=== PATIENT | female | born 1945 | race Caucasian/White ===

== ENCOUNTER → 2021-04-15 09:52 | Outpatient (CLI) | payer MEDICARE, OTHER, SELFPAY | PROVIDERS: PCP Nurse Practitioner Family; Visit Provider Nurse Practitioner | DX: U07.1 COVID-19 (principal) | CPT/HCPCS: C9803; U0003; U0005 ==

== ENCOUNTER 2021-04-24 11:40 | Emergency (ER) | payer MEDICARE, OTHER, SELFPAY ==
[2021-04-24 11:41] VITALS: BP 130/70; PULSE 97; RESP 16; TEMP 36.9; O2SAT 96; BMI 12.1
--- NOTE | 2021-04-24 12:06 | HMH.EDGENADL ---
ED Disposition Clinical Impression: COVID-19, Gastroenteritis Disposition: Home, Self-Care Condition on Discharge: Good Instructions: DI for Viral Gastroenteritis -- Adult Prescriptions: Ondansetron [Zofran 4mg ODT] 4 mg PO BIDP PRN #10 tab PRN Reason: Nausea Prescription Printed Referrals: Provider,Referral, [Primary Care Provider] - Jayro Dominguez MD [Staff Physician] - - Critical Care Critical Care Time: No Attestation: On 04/24/21, the high probability of a clinically significant, sudden or life threatening deterioration of the following system(s) required my full and direct attention, intervention and personal management. The time I documented below is in addition to time spent performing reported procedures but includes the following listed in this critical care notation. Medical Decision Making - Medical Records Medical records reviewed: Yes: I reviewed the patient's medical records. - Agus Inquiry Pt receiving controlled substance: No Vital Signs: 04/24/21 11:41 Temperature 98.5 F Temperature Source Oral Pulse Rate [Right Radial] 97 H Respiratory Rate 16 Blood Pressure [Right Arm] 130/70 Blood Pressure Mean [Right Arm] 90 Blood Pressure Source [Right Arm] Automatic Cuff Blood Pressure Position [Right Arm] Sitting 02 Sat by Pulse Oximetry 96 Oxygen Delivery Method Room Air - Lab Data Lab Results 04/24/21 12:30: WBC 5.3, RBC 4.86, Hgb 15.5, Hct 46.0, MCV 94.6, MCH 31.8 H, MCHC 33.6, RDW 14.7, Plt Count 223, MPV 9.1, Neut % (Auto) 88.2 H, Lymph % (Auto) 8.0 L, [place] % (Auto) 2.6, Eos % (Auto) 0.2, Baso % (Auto) 1.1, Neut # (Auto) 4.7, Lymph # (Auto) 0.4 L, [place] # (Auto) 0.1, Eos # (Auto) 0.0, Baso # (Auto) 0.1 04/24/21 12:30: Sodium 135 L, Potassium 4.2, Chloride 101, Carbon Dioxide 27, Anion Gap 11.2, BUN 14, Creatinine 0.70, Estimated Creat Clear 25, Estimated GFR 81, Est GFR ( Amer) 98, Glucose 104 H, Calcium 9.3, Total Bilirubin 0.5, AST 93 H, ALT 32, Alkaline Phosphatase 87, Total Protein 7.2, Albumin 4.4, Globulin 2.8, Albumin/Globulin Ratio 1.6, Lipase 135 Result diagrams: 04/24/21 12:30 04/24/21 12:30 Orders (Tests/Meds): ED MEDICATIONS Generic Name Dose Route Start Last Admin Trade Name Freq PRN Reason Stop Dose Admin Sodium Chloride 8 ml 04/24/21 12:05 Sodium Chloride 0.9% 10ml Vial IV 05/24/21 12:04 NEEDED PRN dilute pepcid Discontinued Medications Generic Name Dose Route Start Last Admin Trade Name Freq PRN Reason Stop Dose Admin Dexamethasone Sodium Phosphate 10 mg 04/24/21 12:05 04/24/21 13:23 Dexamethasone 4mg/Ml 5ml Mdv IV 04/24/21 12:06 10 mg ONCE ONE Administration Famotidine 20 mg 04/24/21 12:05 04/24/21 13:23 Famotidine 20mg/2ml Vial IV 04/24/21 12:06 20 mg ONCE ONE Administration Sodium Chloride 1,000 mls @ 999 mls/hr 04/24/21 12:15 04/24/21 13:22 Sod Chlor 0.9% 1000ml Bag IV 04/24/21 13:15 999 mls/hr .Q1H1M NATA Administration Ondansetron HCl 4 mg 04/24/21 12:05 04/24/21 13:23 Ondansetron 4mg/2ml Vial IV 04/24/21 12:06 4 mg ONCE ONE Administration ORDERS Category Date Time Status Complete Blood Count Auto Diff Stat Lab 04/24/21 12:30 Results - Reevaluation(s) Time: 13:37 Reevaluation #1: On reevaluation, the patient is feeling better. Repeat abdominal examination is benign. No evidence of acute abdomen. Patient is also not having any respiratory distress. She has no evidence hypoxia. We did ambulate the patient without any evidence of desaturation. Patient is to continue her quarantine per CDC guidelines. Needs follow-up with PCP in 48 hours. Given strict return precautions. Verbalized understanding. Medical Decision Narrative: 75-year-old female presented to the emergency department some nausea and vomiting. Patient symptoms are consistent with gastritis likely from her recent Covid diagnosis. At this time she is not requiring any supplemental oxygen.
[2021-04-24 12:41] LABS: Basophils # 0.1 K/mm3 (0-0.2); Basophils % 1.1 % (0.1-2.0); Eosinophils % 0.2 % (0.1-12.0); Hemoglobin 15.5 g/dL (12.2-16.2); Lymphocytes # 0.4 K/mm3 (0.7-4.5); Mean Corpuscular HGB Conc 33.6 g/dL (31.8-35.4); Mean Corpuscular Hemoglobin 31.8 pg (27.0-31.2); Mean Corpuscular Volume 94.6 fl (81-99); Mean Platelet Volume 9.1 fl (7.4-10.4); Monocytes # 0.1 K/mm3 (0.1-1.0); Monocytes % 2.6 % (1.7-9.3); Neutrophils # 4.7 K/mm3 (1.8-7.8); Neutrophils % 88.2 % (37.0-80.0); Platelet Count 223 K/mm3 (142-424); Red Blood Count 4.86 M/mm3 (4.20-5.40); Red Cell Distribution Width 14.7 % (11.5-17.5); White Blood Count 5.3 K/mm3 (4.8-10.8)
[2021-04-24 12:58] LABS: Alanine Aminotransferase 32 U/L (12-78); Albumin Level 4.4 g/dl (3.5-5.0); Albumin/Globulin Ratio 1.6 (1.1-1.8); Alkaline Phosphatase 87 U/L (38-126); Anion Gap 11.2 mEq/L (5-15); Aspartate Amino Transferase 93 U/L (14-36); Bilirubin,Total 0.5 mg/dl (0.2-1.3); Blood Urea Nitrogen 14 mg/dl (7-17); Calcium 9.3 mg/dl (8.4-10.2); Carbon Dioxide 27 mmol/L (22.0-30.0); Chloride 101 mmol/L (98-107); Creatinine Clearance Estimated 25 mL/min (50-200); Estimated Glomerular Filt Rate 81 ml/min (>60); GFR (African American) 98 ML/MIN (>60); Globulin 2.8 g/dL (1.3-3.2); Glucose 104 mg/dl (74-100); Lipase 135 U/L (23-300); Potassium 4.2 mmoL/L (3.5-5.1); Sodium 135 mmol/L (136-145); Total Protein,Serum 7.2 g/dl (6.3-8.2)
[2021-04-24 13:11] LABS: MANUAL DIFFERENTIAL MANUAL DIFFERENTIAL (MANUAL DIFF)
[2021-04-24 13:43] LABS: Lymphocytes % 8 % (10-50); Monocytes % 1 % (2-9); Neutrophils % 91 % (42-76); Platelet Estimate Normal; RBC Morphology Normal; Total Cells Counted 100
[2021-04-24 13:55] VITALS: BP 139/54; PULSE 82; RESP 18; TEMP 36.9; O2SAT 96
== END 2021-04-24 13:55 | disposition home or self-care (01) ==
PROVIDERS: Emergency Provider Emergency Medicine
DX: U07.1 COVID-19 (principal); K52.9 Noninfective gastroenteritis and colitis, unspecified
CPT/HCPCS: 80053; 83690; 85007; 85025; 96365; 96375; 99282; J2405

== ENCOUNTER 2021-04-30 05:56 | Inpatient (IN) | payer MEDICARE, OTHER, SELFPAY ==
[2021-04-30] VITALS (33 sets, daily range): BP systolic 111–166; BP diastolic 49–89; PULSE 74–115; RESP 16–31; TEMP 35.8–43; O2SAT 92–100; BMI 15.6; BMI 16.7
--- NOTE | 2021-04-30 06:03 | ECG_ITS ---
APPROVED REPORT Exam: Resting ECG HR:92 bpm ECG Measurements Heart Rate 92 AXES UT 134 P 78 QRSd 76 QRS -57 QT 364 T 84 QTc 450 Conclusion Normal sinus rhythm Biatrial enlargement Left axis deviation Abnormal ECG Electronically signed by : Rodriguez Rosario MD 05/02/2021 08:47:36
--- NOTE | 2021-04-30 06:16 | XR_ITS ---
PROCEDURE: XR CHEST 2V CLINICAL HISTORY: SOA COMPARISON: CR CXR CHEST(2 VIEWS-NOT PORTABLE) from 05/08/[address] ABDOMEN PELVIS W CON from 04/30/2021 FINDINGS: The cardiomediastinal silhouette and pulmonary vascularity are within normal limits. There is bilateral pneumonia in the right upper lobe, right lower lobe, and left lower lobe. There is biapical pleural thickening. There is a nodular density in the left apex at 10 mm. This could be due to scarring. Follow-up may confirm stability. Lucency in the left apex which could be related underlying cavitation or emphysematous change. No acute bony abnormalities. IMPRESSION: Bilateral pneumonia. Biapical scarring with nodular opacity in the left apex which may also be due to scarring versus pulmonary nodule. Lucencies are noted in the left apex and may be due to emphysematous changes/blebs versus cavitation. Follow-up suggested.. Dictated by: Krystian Spencer MD 04/30/2021 08:54 Krystian Spencer MD in [place] 04/30/2021 08:54
--- NOTE | 2021-04-30 06:16 | CT_ITS ---
PROCEDURE: CT ABDOMEN PELVIS W CON CLINICAL INDICATION: Abd pain Lower abdominal pain with nausea COMPARISON: No exams were available for comparison TECHNIQUE: IV Contrast: 75ML Isovue 370 Oral Contrast 10ml Gastroview Axial images obtained with sagittal and coronal reformats. All CT scans at the facility use one or more dose reduction, viz: automated exposure control, ma/kV adjustment per patient size (including targeted exams where dose is matched to indication, i.e. head), or iterative reconstruction technique. FINDINGS: LOWER THORAX: There are COPD changes of the lung with prominent interstitial thickening along with some consolidation in the lower lobes consistent with bilateral lower lobe pneumonia. Covid19 pneumonia is a consideration. No effusions. ABDOMEN & PELVIS: There is decreased density of the right lobe of the liver compared to the left side. This is fairly homogeneous. The spleen, adrenal glands, pancreas, and kidneys have an unremarkable appearance other than a 1.6 cm right renal cyst. No intestinal obstruction apparent. There are some scattered foci free air noted in the anterior aspect of the abdomen. There are scattered foci hyperdensity within the bowel and could represent residual contrast from a recent barium study or ingestion of bismuth containing medication. The appendix is not clearly delineated. 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 Superior mesenteric artery is nonvisualized. There is a prominent inferior mesenteric artery with prominent collateral vessels an arc of riolan. IMPRESSION: 1. Pneumoperitoneum. Ruptured viscus considered. 2. Bilateral lower lobe pneumonia consistent with Covid19 pneumonia. 3. Well-demarcated decreased attenuation involving the right lobe of the liver. Infarction is a consideration. Unusual pattern fatty infiltration would be included in the differential diagnosis. 4. 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 There is also occlusion of the superior mesenteric artery which is not identified. There is prominent collateral vessels suggesting at the occlusion may be chronic with enlarged arc of [place] 5. There is thickening of the ascending colon. Colonic mass is a consideration versus underlying inflammatory change. 6. Dr. Gloria the ER was notified of the above findings by telephone 04/30/2021 at 9:40 a.m. Dictated by: Krystian Spencer MD 04/30/2021 10:11 Krystian Spencer MD in [place] 04/30/2021 10:11
--- NOTE | 2021-04-30 06:40 | HMH.EDNVD ---
ED Disposition Condition on Discharge: Good - Critical Care Critical Care Time: No <Jayro Dominguez - Last Filed: 04/30/21 08:16> Condition on Discharge: Serious - Critical Care Critical Care Time: No <Tomas Barrera - Last Filed: 04/30/21 16:30> Clinical Impression: Pneumoperitoneum, Hepatic infarction, Occlusion of celiac artery, Occlusion of superior mesenteric artery, Pneumonia due to COVID-19 virus Disposition: Admitted As Inpatient Attestation: On 04/30/21, the high probability of a clinically significant, sudden or life threatening deterioration of the following system(s) required my full and direct attention, intervention and personal management. The time I documented below is in addition to time spent performing reported procedures but includes the following listed in this critical care notation. Medical Decision Making - Medical Records Medical records reviewed: Yes: I reviewed the patient's medical records. - Agus Inquiry Pt receiving controlled substance: No - Lab Data Lab results reviewed: Yes: I reviewed the patient's lab results. Result diagrams: 04/30/21 06:48 04/30/21 06:48 <Jayro Dominguez - Last Filed: 04/30/21 08:16> - Lab Data Result diagrams: 04/30/21 06:48 04/30/21 06:48 - Radiology Data #1 Image(s): Chest Image Reviewed: Yes I reviewed the patient's radiology image, Yes I have reviewed radiologist's interpretation - CT Data CT Scan: Abdomen, Pelvis Time Received: 09:[address] Reviewed: Yes: I discussed the CT results w/the radiologist, I have viewed the radiologist's interpretation - Physician Consults Physician Consulted: Gary Time: 10:14 Reason -: Surgical Eval/Care Comment/Response: Recommends transfer patient to higher level of care given multiple findings and comorbidities Additional Consult: [facility], and surgeon eap consultant Time: 10:40 Reason -: Transfer to another facilty, Surgical Eval/Care Comment/Response: is on lockdown diversion. Surgical transfers must be approved by the chief service dispatcher. The surgeon will call the CARD FIXER and call us back. Additional Consult: [facility] Time: 12:17 Reason -: Transfer to another facilty Comment/Response: Reports that chief service dispatcher states that beds are maxed out and they are unable to accept the patient. - Reevaluation(s) Time: 09:45 <Tomas Barrera - Last Filed: 04/30/21 16:30> Vital Signs: 04/30/21 05:57 04/30/21 06:09 04/30/21 06:31 Temperature 97.7 F Temperature Source Oral Pulse Rate 87 88 Pulse Rate [Right Radial] 94 H Respiratory Rate 20 Blood Pressure Blood Pressure [Right Arm] 111/60 Blood Pressure Mean Blood Pressure Mean [Right Arm] 77 Blood Pressure Source [Right Arm] Automatic Cuff Blood Pressure Position [Right Arm] Sitting 02 Sat by Pulse Oximetry 95 96 100 Oxygen Delivery Method Room Air 04/30/21 07:28 04/30/21 08:25 04/30/21 09:01 Temperature Temperature Source Pulse Rate 84 99 H 99 H Pulse Rate [Right Radial] Respiratory Rate Blood Pressure 116/49 L 123/62 136/64 Blood Pressure [Right Arm] Blood Pressure Mean 63 82 90 Blood Pressure Mean [Right Arm] Blood Pressure Source [Right Arm] Blood Pressure Position [Right Arm] 02 Sat by Pulse Oximetry 94 L 95 96 Oxygen Delivery Method 04/30/21 10:00 04/30/21 10:31 04/30/21 11:30 Temperature Temperature Source Pulse Rate 79 74 77 Pulse Rate [Right Radial] Respiratory Rate Blood Pressure 124/56 L 133/60 138/58 L Blood Pressure [Right Arm] Blood Pressure Mean 78 84 74 Blood Pressure Mean [Right Arm] Blood Pressure Source [Right Arm] Blood Pressure Position [Right Arm] 02 Sat by Pulse Oximetry 95 94 L 98 Oxygen Delivery Method 04/30/21 12:01 04/30/21 12:30 04/30/21 13:00 Temperature Temperature Source Pulse Rate 82 94 H 89 Pulse Rate [Right Radial] Respiratory Rate Blood Pressure 150/
--- NOTE | 2021-04-30 06:54 | PC.NURSE ---
Pt finished oral contrast
[2021-04-30 07:08] LABS: Basophils % 0.3 % (0.1-2.0); Eosinophils % 0.3 % (0.1-12.0); Hematocrit 39.7 % (37.0-47.0); Hemoglobin 13.3 g/dL (12.2-16.2); Lymphocytes # 0.5 K/mm3 (0.7-4.5); Lymphocytes % 5.9 % (10-50); Mean Corpuscular HGB Conc 33.4 g/dL (31.8-35.4); Mean Corpuscular Hemoglobin 31.4 pg (27.0-31.2); Mean Corpuscular Volume 93.9 fl (81-99); Mean Platelet Volume 8.7 fl (7.4-10.4); Monocytes # 0.1 K/mm3 (0.1-1.0); Monocytes % 1.7 % (1.7-9.3); Neutrophils # 7.3 K/mm3 (1.8-7.8); Neutrophils % 91.8 % (37.0-80.0); Platelet Count 246 K/mm3 (142-424); Red Blood Count 4.23 M/mm3 (4.20-5.40); Red Cell Distribution Width 14.6 % (11.5-17.5); White Blood Count 7.9 K/mm3 (4.8-10.8)
[2021-04-30 07:12] LABS: MANUAL DIFFERENTIAL MANUAL DIFFERENTIAL (MANUAL DIFF)
[2021-04-30 07:18] LABS: Alanine Aminotransferase 31 U/L (12-78); Alkaline Phosphatase 61 U/L (38-126); Aspartate Amino Transferase 97 U/L (14-36); Bilirubin,Direct 1.3 mg/dl (0.0-0.4); Bilirubin,Indirect 0.6 mg/dL (0.0-0.9); Bilirubin,Total 1.9 mg/dl (0.2-1.3); Bilirubin,Unconjugated 0.6 mg/dL (0.0-1.1); Blood Urea Nitrogen 26 mg/dl (7-17); Calcium 8.6 mg/dl (8.4-10.2); Carbon Dioxide 24 mmol/L (22.0-30.0); Chloride 103 mmol/L (98-107); Creatinine Clearance Estimated 33 mL/min (50-200); Estimated Glomerular Filt Rate 97 ml/min (>60); GFR (African American) 117 ML/MIN (>60); Glucose 89 mg/dl (74-100); Lipase 44 U/L (23-300); Sodium 135 mmol/L (136-145); Total Protein,Serum 7.5 g/dl (6.3-8.2)
[2021-04-30 07:21] LABS: Anion Gap 13.8 mEq/L (5-15); Potassium 5.8 mmoL/L (3.5-5.1)
[2021-04-30 07:23] LABS: C-Reactive Protein 162.6 mg/L (0-4)
[2021-04-30 07:32] LABS: Troponin I 0.02 ng/ml (0.00-0.034)
[2021-04-30 07:47] LABS: Lymphocytes % 4 % (10-50); Monocytes % 4 % (2-9); Neutrophils % 92 % (42-76); Platelet Estimate Normal; RBC Morphology Normal; Total Cells Counted 100
[2021-04-30 08:03] LABS: Erythrocyte Sedimentation Rate 26 mm/hr (0-30)
--- NOTE | 2021-04-30 08:09 | PC.NURSE ---
Pt is currently in bathroom trying to give urine sample
--- NOTE | 2021-04-30 08:10 | PC.NURSE ---
Pt walking to the bathroom at this time.
[2021-04-30 08:18] LABS: Microscopic, Urine URINE MICROSCOPIC (MICROSCOPIC)
[2021-04-30 08:21] LABS: Appearance,Urine CLEAR (Clear); Bilirubin,Urine 1+ (Negative); Blood, Urine Negative (Negative); Color,Urine YELLOW (Yellow); Glucose,Urine (UA) Negative (Negative); Ketones,Urine 1+ (Negative); Leukocyte Esterase,Urine TRACE (Negative); Nitrate,Urine Negative (Negative); PH,Urine 5.5 (5.0-8.5); Protein,Urine TRACE (Negative); Specific Gravity, Urine >= 1.030 (1.005-1.030); Urobilinogen,Urine 0.2 EU/dl (0.2)
--- NOTE | 2021-04-30 08:21 | PC.NURSE ---
Stool for diarrhea panel being sent to lab at this time.
[2021-04-30 08:24] LABS: Adenovirus F 40/41, stool Not Detected (NotDetected); Astrovirus Not Detected (NotDetected); Campylobacter Not Detected (NotDetected); Clostridium Difficile A/B, PCR Not Detected (NotDetected); Cryptosporidium Not Detected (NotDetected); Cyclospora Cayetanesis Not Detected (NotDetected); Entamoeba histolytica Not Detected (NotDetected); Enteroaggregative E coli Not Detected (NotDetected); Enteropathogenic E coli Not Detected (NotDetected); Enterotoxigenic E coli Not Detected (NotDetected); Giardia lamblia Not Detected (NotDetected); Norovirus Not Detected (NotDetected); Plesimonas Shigalloides, PCR Not Detected (NotDetected); Rotavirus A Not Detected (NotDetected); Salmonella, PCR Not Detected (NotDetected); Sapovirus Not Detected (NotDetected); Shiga-like toxin E coli Not Detected (NotDetected); Shigella Enterovasive E coli Not Detected (NotDetected); Vibrio Cholerae Not Detected (NotDetected); Vibrio, PCR Not Detected (NotDetected); Yersinia Entercolitica, PCR Not Detected (NotDetected)
--- NOTE | 2021-04-30 08:27 | PC.NURSE ---
Pt to Rad
--- NOTE | 2021-04-30 08:28 | PC.NURSE ---
pt going to ct
[2021-04-30 08:37] LABS: RBC,Urine Occasional #/hpf (0-3)
--- NOTE | 2021-04-30 09:42 | PC.NURSE ---
speaking with Dr Spencer
--- NOTE | 2021-04-30 09:46 | PC.NURSE ---
Attempting to get ahold of Dr Vega at this time, as he is the surgeon real estate professional
[2021-04-30 09:49] LABS: Occult Blood,Stool Positive (Negative)
--- NOTE | 2021-04-30 09:50 | PC.NURSE ---
speaking with pharmacy
--- NOTE | 2021-04-30 10:12 | PC.NURSE ---
speaking with Dr Vega at this time. This nurse asked pt if she needed any pain medication for her abd pain. Pt advises that she does not at this time. States that pain has subsided and is only present when she attempts to cough.
[2021-04-30 10:16] LABS: Troponin I < 0.01 ng/ml (0.00-0.034)
--- NOTE | 2021-04-30 10:26 | PC.NURSE ---
Calling [facility]
--- NOTE | 2021-04-30 10:34 | PC.NURSE ---
Pt is currently in bathroom
--- NOTE | 2021-04-30 10:48 | PC.NURSE ---
spoke with [facility] and was advised that they are on Lockdown Divert and couldn't accept surgical pt without speaking with their Soft Boarder and Surgeon. Awaiting a return call at this time.
[2021-04-30 11:32] LABS: Lactic Acid 2.6 mmol/L (0.7-2.1)
--- NOTE | 2021-04-30 12:22 | PC.NURSE ---
returned call and denied transfer. Called [facility] and they advised that they are at capacity and unable to accept transfer at this time. Calling [facility] at this time.
--- NOTE | 2021-04-30 12:26 | PC.NURSE ---
SPOKE WITH [facility] THEY HAVE NO ICU BED AVAILABLE BUT THEY ARE PAGING DR MORA AND WILL CALL BACK
--- NOTE | 2021-04-30 12:29 | PC.NURSE ---
DR RYAN SPEAKING WITH DR MORA
--- NOTE | 2021-04-30 12:34 | PC.NURSE ---
SPOKE WITH TRANSFER CENTER IN [place] THEY ARE ONLY TAKING TAKING CARDIAC ,TRAUMA AND AN
--- NOTE | 2021-04-30 12:42 | PC.NURSE ---
SPOKE WITH [facility] IN REGARDING A TRANSFER THEY ARE SUPPOSE TO CALL US BACK , BUT WAS NOT SURE IF THEY WOULD ACCEPT DUE TO IT NOT BEING A TRAUMA
--- NOTE | 2021-04-30 12:54 | PC.NURSE ---
Spoke with Transfer [facility] at [place] and they advised he would accept the patient if there was an immediate ICU bed available. At this time there was no available ICU bed. Advised they could page the hospitalist to see if they would also accept and they could look at the bed situation again in a couple of hours. Dr. Barrera advised to continue to proceed.
--- NOTE | 2021-04-30 13:12 | PC.NURSE ---
DR POWELL PAGED
--- NOTE | 2021-04-30 13:35 | PC.NURSE ---
speaking with Dr. Vega
--- NOTE | 2021-04-30 13:36 | PC.NURSE ---
Called and spoke with pt's brother and advised him that pt was facing critical situation and she was requesting that he come to the ER so she could speak with him face to face. He advised that he would let his boss know and would be on the way.
--- NOTE | 2021-04-30 14:29 | PC.NURSE ---
Brother arrived at bedside. MD going in to speak with them at this time
--- NOTE | 2021-04-30 14:38 | PC.NURSE ---
DR POWELL AND DR RYAN AT BEDSIDE
--- NOTE | 2021-04-30 14:59 | PC.NURSE ---
Dr. Vega had lengthy discussion with pt and her brother about surgery, complications and potential outcomes. Pt and brother agreeable to be transported to [facility] at this time. Julia calling [facility] transfer center to update them and see what POC will be.
--- NOTE | 2021-04-30 15:04 | PC.NURSE ---
SPOKE WITH [facility] AGAIN IN REGARDING THAT PT DOES WANT TO BE TRANSFERRED , WAITING MEDICAL OFFICE SCHEDULER BACK
--- NOTE | 2021-04-30 15:15 | PC.NURSE ---
Notified Dr. Gary anthony pt has decided at this time she does not want to go to [facility]. Multiple family members at bedside.
[2021-04-30 15:18] LABS: Reflex Lactic Add Lactic Reflex
--- NOTE | 2021-04-30 15:23 | PC.NURSE ---
DR ZULETA PAGED FOR ADMISSION
--- NOTE | 2021-04-30 15:30 | PC.NURSE ---
I went in and spoke with patient and family at length regarding code status and all the options that were available to them at this time. Explained everything in detail and went over the paperwork. I advised them I would give them some time to discuss options and would come back and discuss their decision. Family asked if manager of corporate communications could come to bedside to make the brother POA. Advised them at this time that would be ok. Left sheet at bedside and told them I would be back.
--- NOTE | 2021-04-30 15:32 | CT_ITS ---
PROCEDURE INFORMATION: Exam: CT Abdomen And Pelvis Without Contrast Exam date and time: 04/30/2021 3:32 PM Age: 75 years old Clinical indication: Abdominal pain; Generalized; Patient HX: PT had CT abd/pelvis earlier today with findings see prior report. ; Additional info: Abd pain TECHNIQUE: Imaging protocol: Computed tomography of the abdomen and pelvis without contrast. Radiation optimization: All CT scans at this facility use at least one of these dose optimization techniques: automated exposure control; mA and/or kV adjustment per patient size (includes targeted exams where dose is matched to clinical indication); or iterative reconstruction. COMPARISON: CT ABDOMEN PELVIS W CON 04/30/2021 8:32 AM FINDINGS: Lungs: Coarse interstitial lung markings and bibasilar airspace opacities are noted and have worsened. The right lung base airspace process has worsened significantly. Pleural spaces: Minor right-sided pleural fluid. Liver: Normal. No mass. Gallbladder and bile ducts: Normal. No calcified stones. No ductal dilation. Pancreas: Normal. No ductal dilation. Spleen: Normal. No splenomegaly. Adrenal glands: Normal. No mass. Kidneys and ureters: Right-sided simple renal cysts measuring up to 2.1 cm. Stomach and bowel: Unremarkable. No obstruction. No mucosal thickening. Appendix: No evidence of appendicitis. Intraperitoneal space: Large volume of pneumoperitoneum. Vasculature: Mild atherosclerotic changes are seen within the abdominal aorta and branch vasculature without evidence of aneurysm. Lymph nodes: Unremarkable. No enlarged lymph nodes. Urinary bladder: Contrast within the urinary bladder, renal collecting systems and ureters. Reproductive: Unremarkable as visualized. Bones/joints: Unremarkable. No acute fracture. Soft tissues: Unremarkable. IMPRESSION: 1. Worsening pneumoperitoneum consistent with hollow viscus perforation. Sided perforation is not determined with confidence. 2. New pelvic free fluid. 3. Worsening bibasilar pneumonia. 4. Simple right renal cysts. No follow-up imaging is recommended. COMMENTS: Consistent with the [employer]'s Incidental Findings Committee white paper (J Am Claritza Radiol 2018): Any incidental renal lesion less than 1 cm or classified as too small to characterize, or any incidental cystic renal lesion characterized as simple-appearing, is likely benign. No follow-up imaging is recommended for these lesions per consensus recommendations based on imaging criteria.
--- NOTE | 2021-04-30 15:40 | HMH.GSCON ---
*Admission Date: 04/30/21 *Reason for consult:: Free air *History of present illness: This is a 75-year-old female with a recent diagnosis of Covid pneumonia who presents the emergency department with increasing nausea, vomiting, and diarrhea. She had a previous emergency department visit with similar symptoms on April 24. Evaluation included a CT scan which showed a small amount of pneumoperitoneum of undetermined etiology. No changes consistent with perforated duodenal ulcer or diverticulitis were noted. Bilateral pneumonia also confirmed radiographically. Unfortunately a well-demarcated decreased attenuation involving the right lobe of the liver was also noted and this was felt to be possibly consistent with infarction. 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 Some thickening of the ascending colon consistent with inflammatory change versus mass was also noted. The surgical service was consulted secondary to note of a small amount of pneumoperitoneum. Due to the patient's significant comorbid conditions including Covid pneumonia, possible hepatic infarction, celiac artery occlusion (albeit with reconstitution), and superior mesenteric artery occlusion...recommendations for immediate transfer to tertiary care center were made. Multiple attempts at transfer were efforted by the emergency department physician. Please see timeline below. Ultimately, an accepting physician at the [facility] was found; however, the patient now refuses transfer. NOTE: Repeat CT scan shows significant increase in degree of pneumoperitoneum. Forwarded from emergency department evaluation: Nausea/Vomiting/Diarrhea HPI - General Mode of Arrival: Ambulatory Source of Information: Patient, Medical Record Limitations: No Limitations Description of Symptoms (Recalled from ER Triage Doc. by RN): Pt reports continued vomiting and diarrhea from her previous visit on 04/24. She says she now has some midline abdominal pain. She also reports SOA. - History of Present Illness MD complaint: nausea, vomiting, diarrhea, abdominal pain Onset (ago): day(s) Associated Abdominal Pain: Yes Location of pain: diffuse Severity: moderate Associated symptoms: denies other symptoms The following is the timeline with regard to attempts to transfer the patient to an appropriate tertiary care center: - Physician Consults Physician Consulted: Gary Time: 10:14 Reason -: Surgical Eval/Care Comment/Response: Recommends transfer patient to higher level of care given multiple findings and comorbidities Additional Consult: [facility] transfer center, and surgeon production checker Time: 10:40 Reason -: Transfer to another facilty, Surgical Eval/Care Comment/Response: is on lockdown diversion. Surgical transfers must be approved by the protection chief industrial plant. The surgeon will call the SLOT FLOORMAN and call us back. Additional Consult: [facility] transfer center Time: 12:17 Reason -: Transfer to another facilty Comment/Response: Reports that protection chief industrial plant states that beds are maxed out and they are unable to accept the patient. 12:25 PM: Both [facility] and [facility] are at capacity and unable to accept the transfer. [facility] to take her information, surgeon to call back. [facility] is not even able to take information for a waiting list. 12:30 PM: Spoke with Dr. Edmond, surgeon at [facility]. He is took information and will accept the patient from his standpoint, but this is contingent upon vascular surgery exceptions, hospitalist acceptance, ICU bed availability. Awaiting further calls. 12:35 PM: [facility] unable to
--- NOTE | 2021-04-30 15:51 | PC.NURSE ---
Pt to CT
--- NOTE | 2021-04-30 16:07 | PC.NURSE ---
Notified house of admission
--- NOTE | 2021-04-30 16:09 | PC.NURSE ---
Went back to see if family had made a decision about code status and they have decided at this time she will be a full code.
[2021-04-30 16:13] LABS: Influenza A, PCR Not Detected (NotDetected); Influenza B, PCR Not Detected (NotDetected)
--- NOTE | 2021-04-30 16:17 | PC.NURSE ---
Dr. Vega at bedside
[2021-04-30 16:21] LABS: Lactic Acid Follow Up (RFLX 1) 1.2 mmol/L (0.7-2.1)
--- NOTE | 2021-04-30 16:26 | PC.NURSE ---
Dr. Vega came out of pt room and advised pt would be going to surgery immediately and that he needed the surgery team. Notified House that I needed the surgery team ALLEGRA. Spoke with KASSI Bee and asked her if pt could see her son who is intubated on the floor prior to surgery. Rohit and Gabriel came down and took pt and her brother to the floor to see her son prior to going to surgery. Pt's sister in law Fiorella Mauricio is now the designated health care surrogate per the patient's request. I went to pre-op waiting area and had her sign the surgery consent and the anesthesia consent. Rohit and Gabriel had pt in pre-op area at this time getting pt prepped for surgery. Pr-op checklist completed. SEEMA Treviño started 2nd IV in the right forearm with 20g. Fluids started. Pre-op antibiotics and pepcid brought to pre-op by Shahana at this time. Allowed family at bedside to be with pt prior to going back to OR. Crescencio and Angelika Silva RN arrived at bedside and spoke with pt and family. Pt taken to OR and I escorted family back out to surgery waiting room and advised them someone could come and update them.
--- NOTE | 2021-04-30 16:26 | PC.NURSE ---
OR TEAM AND ANESTHESIA PAGED AT THIS TIME
--- NOTE | 2021-04-30 16:27 | PC.NURSE ---
Addendum entered by Jena Ku RN 04/30/21 16:29: JERROD INFORMED OR TEAM OF EMERGENT CASE WELL. Original Note: RECEIVED CALL BACK FROM JERROD IN ANESTHESIA, STATED HE WAS IN THE OR IN THE MIDDLE OF A CASE AT THIS TIME. INFORMED HIM OF PATIENT INFO, AND HE STATED HE WOULD CALL DR POWELL.
[2021-04-30 16:40] LABS: Coronavirus 19, PCR Detected (NotDetected)
[2021-04-30 17:09] LABS: Troponin I < 0.01 ng/ml (0.00-0.034)
--- NOTE | 2021-04-30 17:17 | SUR.PREOP ---
1700: Pt. in preop preparing for surgery. Dr. Vega at bedside. Consent signed. Pt. denies questions at this time. Pt. VS remain stable.
--- NOTE | 2021-04-30 18:06 | P.PN_ITS ---
[facility] Anesthesia Checklist - Patient Identification Patient Identification: Arm Band, Family - Structural Data Admitted From: Emergency Dept Planned Operative Procedure/s: Exploratory Laparotomy Consent for Planned Operative Procedure(s) Verified: Yes Verified Documents: Surgical Consent, History and Physical - NPO Status Verified Time NPO: 00:00 - Additional verifications Anesthesia Reactions: No - Airway Assessment C-Spine Mobility Assessed: Yes (mp1) TMJ Mobility Assessed: Yes Dentition: Poor Dentition - Neurological Assessment Level of Consciousness: Awake, Alert - Anesthesia Plan Anesthesia Risk discussed: Yes Anesthesia Plan: Verified ASA Class: III (e) Anesthesia Type: General - Preoperative Comments Pre-Operative Comments: [facility] History I have reviewed the patient's past medical history: Yes *Have you ever received a pneumonia vaccine?: No *Have you received a flu vaccine this season?: No Other Medical History: Reports: Other (Rheumatoid Arthritis, Recent Covid Pneumonia) Anesthesia experience/problems:: nac Laterality Cases: Left: Breast Biopsy Other Surgeries: Yes: Other - *Social History Smoking Status: Unknown if ever smoked Alcohol Intake: never Substance Use Type: denies use *Occupational Status:: retired *Travel in the last 8 weeks: None Family Hx:: Unable to obtain
--- NOTE | 2021-04-30 18:48 | P.OP_ITS ---
Date of procedure: 04/30/21 Pre-op Diagnosis:: Free air/perforated viscus Post-op Diagnosis:: Perforated duodenal ulcer Procedure performed:: Exploratory laparotomy with Henrique patch repair of anterior duodenal ulcer perforation Surgeon:: Bruce Vega MD MUSIC TYPOGRAPHER:: Stan Merino Anesthesia: GETA Estimated blood loss (mL): 15 Operative findings:: 4 mm perforation along anterior duodenal bulb Operative note:: After informed consent was obtained the patient was taken to the operating room and placed in the supine position. General anesthesia was induced and her abdomen was prepped and draped in a sterile fashion. An upper midline laparotomy incision was completed. The abdominal cavity was carefully entered. A moderate amount of free air immediately escaped upon entering the abdomen. Cloudy fluid was noted throughout the gutters and anterior abdomen. Inflammatory response along the distal gastric margin and duodenum were immediately noted. A 4 mm perforation along the anterior margin of the duodenal bulb was confirmed. Copious irrigation with warm saline was completed throughout the entire abdominal cavity. The patient had scant omentum secondary to her body habitus. A portion of viable omentum was mild inflammatory response was noted along the adjacent gastric/duodenal margin. The remainder of her limited omentum (as it emanated from the colonic margin) was evaluated. The adjacent omentum was determined to be most appropriate for flap creation. Electrocautery was utilized to carefully free the tissue without compromising vascular supply. 3-0 Nurolon was then utilized to complete the Henrique patch. Careful attention was taken to ensure no back walling occurred and that the sutures were placed through healthy tissue 1 cm apart. The omentum was carefully secured as the sutures were tied down. Fascia was then reapproximated with #2 Novafil. Skin was then stapled. Dressings were applied and the patient was transferred to recovery in stable but critical condition. Condition: critical Disposition: PACU Specimens:: None Complications:: No immediate
--- NOTE | 2021-04-30 18:59 | P.PN_ITS ---
[facility] Anesthesia Record Part I Intake, IV Amount: 1,500 Estimated blood loss (mL): 50 Urine output (mL): 275 Blood Pressure: 166/89 SaO2: 94 Pulse Rate: 115 Respiratory Rate: 16 Temperature: 99.4 F Patient is:: Drowsy, Stable Stable to PACU at:: 18:55
--- NOTE | 2021-04-30 19:41 | PC.NURSE ---
pt arrived to floor via stretcher at this time
--- NOTE | 2021-04-30 20:22 | PC.NURSE ---
1922-MD at bedside, STEWARD/STEWARDESS at bedside, no further orders given at this time 1927-detailed report called to JasonRN 1938-pt transported to 2nd floor room 218 via stretcher w/mejia rails up, assisted with transfer to hospital bed upon arrival to floor, vss, pt stable upon arrival to floor
--- NOTE | 2021-04-30 20:26 | PC.NURSE ---
Addendum entered by Corry Grewal RN 04/30/21 22:58: 1750 Original Note: Derrek last administered 1759 per Angelika in OR.
[2021-04-30 20:56] LABS: Microscopic,Cath URINE MICROSCOPIC (MICROSCOPIC)
[2021-04-30 22:18] LABS: Appearance,Urine/Cath CLEAR (Clear); Bilirubin,Cath Negative (Negative); Blood, Urine/Cath Negative (Negative); Color,Urine/Cath YELLOW (Yellow); Glucose,Urine/Cath (UA) Negative (Negative); Ketones,Urine/Cath 1+ (Negative); Leukocyte Esterase,Cath Negative (Negative); Nitrate,Cath Negative (Negative); Protein,Urine/Cath 1+ (Negative); Specific Gravity, Urine/Cath 1.015 (1.005-1.030); Urobilinogen,Cath 0.2 EU/dl (0.2)
[2021-04-30 22:57] LABS: Bacteria,Urine/Cath TRACE /lpf; WBC,Urine/Cath Occasional #/hpf (0-3)
[2021-05-01] VITALS (23 sets, daily range): BP systolic 106–147; BP diastolic 34–65; PULSE 84–114; RESP 20–23; TEMP 35.7–36.8; O2SAT 88–100; BMI 16.7
[2021-05-01 06:39] LABS: Basophils % 0.1 % (0.1-2.0); Hematocrit 35.6 % (37.0-47.0); Lymphocytes # 0.4 K/mm3 (0.7-4.5); Lymphocytes % 3.3 % (10-50); Mean Corpuscular Hemoglobin 30.9 pg (27.0-31.2); Mean Corpuscular Volume 93.7 fl (81-99); Mean Platelet Volume 8.5 fl (7.4-10.4); Monocytes # 0.1 K/mm3 (0.1-1.0); Monocytes % 0.7 % (1.7-9.3); Neutrophils # 11.4 K/mm3 (1.8-7.8); Neutrophils % 95.9 % (37.0-80.0); Platelet Count 248 K/mm3 (142-424); Red Cell Distribution Width 14.8 % (11.5-17.5); White Blood Count 11.9 K/mm3 (4.8-10.8)
[2021-05-01 06:40] LABS: MANUAL DIFFERENTIAL MANUAL DIFFERENTIAL (MANUAL DIFF)
[2021-05-01 06:45] LABS: Chloride 111 mmol/L (98-107); Sodium 141 mmol/L (136-145)
[2021-05-01 06:46] LABS: Potassium 3.9 mmoL/L (3.5-5.1)
[2021-05-01 06:49] LABS: Anion Gap 13.9 mEq/L (5-15); Blood Urea Nitrogen 20 mg/dl (7-17); Calcium 7.6 mg/dl (8.4-10.2); Carbon Dioxide 20 mmol/L (22.0-30.0); Creatinine Clearance Estimated 35 mL/min (50-200); Estimated Glomerular Filt Rate 120 ml/min (>60); GFR (African American) 145 ML/MIN (>60); Glucose 78 mg/dl (74-100)
--- NOTE | 2021-05-01 07:00 | HMH.PHAVTE ---
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
--- NOTE | 2021-05-01 07:12 | HMH.GSPN ---
Subjective Narrative: She states that she feels okay . She remains sore . She slept on and off last night . 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 Ambulate Physical therapy Continue proton pump inhibition Continue Zosyn for now Continue nasogastric decompression Exam Vital signs and Labs for Last 24 Hours: Temp Pulse Resp BP Pulse Ox 97.8 F 88 20 114/47 L 93 L 05/01/21 05:00 05/01/21 07:05 05/01/21 07:05 05/01/21 07:05 05/01/21 07:05 Laboratory Results - last 24 hr 04/30/21 06:48: WBC 7.9, RBC 4.23, Hgb 13.3, Hct 39.7, MCV 93.9, MCH 31.4 H, MCHC 33.4, RDW 14.6, Plt Count 246, MPV 8.7, Neut % (Auto) 91.8 H, Lymph % (Auto) 5.9 L, Dixon % (Auto) 1.7, Eos % (Auto) 0.3, Baso % (Auto) 0.3, Neut # (Auto) 7.3, Lymph # (Auto) 0.5 L, Dixon # (Auto) 0.1, Eos # (Auto) 0.0, Baso # (Auto) 0.0, Total Counted 100, Neutrophils % (Manual) 92 H, Lymphocytes % (Manual) 4 L, Monocytes % (Manual) 4, Platelet Estimate Normal, RBC Morphology Normal, ESR 26 04/30/21 06:48: Sodium 135 L, Potassium 5.8 H, Chloride 103, Carbon Dioxide 24, Anion Gap 13.8, BUN 26 H, Creatinine 0.60, Estimated Creat Clear 33, Estimated GFR 97, Est GFR ( Amer) 117, Glucose 89, Calcium 8.6, Total Bilirubin 1.9 H, Direct Bilirubin 1.3 H, Conjugated Bilirubin 0.0, Indirect Bilirubin 0.6, Unconjugated Bilirubin 0.6, AST 97 H, ALT 31, Alkaline Phosphatase 61, Troponin I 0.02, C-Reactive Protein 162.6 H, Total Protein 7.5, Albumin 4.0, Lipase 44, Procalcitonin 12.0 H 04/30/21 08:15: Urine Color Yellow, Urine Appearance Clear, Urine pH 5.5, Ur Specific [place] >= 1.030, Urine Protein Trace, Urine Glucose (UA) Negative, Urine Ketones 1+, Urine Blood Negative, Urine Nitrate Negative, Urine Bilirubin 1+ A, Urine Urobilinogen 0.2, Ur Leukocyte Esterase Trace, Urine RBC Occasional, Urine WBC 3-5, Ur Squamous Epith Cells 3-5, Urine Bacteria None 04/30/21 08:15: Stool Occult Blood Positive A 04/30/21 08:21: Stl Aeromonas (PCR) Not detected, Stl C. cayetanensis PCR Not detected, Stool Rotavirus (PCR) Not detected, Stl Adenov F 40/41 PCR Not detected, Stool Astrovirus (PCR) Not detected, Stool Campylobacter PCR Not detected, Stl C.difficile Tox PCR Not detected, Stool Cryptosporidium PCR Not detected, Stl E.coli Shiga Tox PCR Not detected, Stool E coli O157 PCR Not detected, Stl Enterotoxigenic E PCR Not detected, Stool EPEC (PCR) Not detected, Stool EAEC (PCR) Not detected, Stl E. histolytica PCR Not detected, Stool Giardia Lamblia PCR Not detected, Stool Salmonella PCR Not detected, Stool Sapovirus (PCR) Not detected, Stl P. shigelloides PCR Not detected, Stl Shigella/EIEC PCR Not detected, St Y.enterocolitica PCR Not detected, Stool Vibrio (PCR) Not detected, Stl Vibrio cholerae PCR Not detected, Stl Norovirus GI/GII PCR Not detected 04/30/21 09:38: Troponin I < 0.01 04/30/21 11:09: Lactate 2.6 H 04/30/21 15:45: Troponin I < 0.01 04/30/21 15:45: Lactate 1.2 04/30/21 16:05: SARS-CoV-2 (PCR) Detected A, Influenza A Untype (PCR) Not detected, Influenza Type B (PCR) Not detected 04/30/21 17:25: Urine Color Yellow, Urine Appearance Clear, Urine pH 6.0, Ur Specific [place] 1.015, Urine Protein 1+, Urine Glucose (UA) Negative, Urine Ketones 1+, Urine Blood Negative, Urine Nitrate Negative, Urine Bilirubin Negative, Urine Urobilinogen 0.2, Ur Leukocyte Esterase Negative, Urine WBC Occasional, Urine Bacteria Trace 05/01/21 06:10: WBC 11.9 H D, RBC 3.80 L, Hct 35.6 L, MCV 93.7, MCH 30.9, MCHC 33.0, RDW 14.8, Plt Count 248, MPV 8.5, Neut % (Auto) 95.9 H, Lymph % (Auto) 3.3 L, Dixon % (Auto) 0.7 L, Eos % (Auto) 0.0 L, Baso % (Auto) 0.1, Neut # (Auto) 11.4 H, Lymph # (Auto) 0.4 L, Dixon # (Auto) 0.1, Eos # (Auto
--- NOTE | 2021-05-01 07:30 | HMH.PHAINT ---
MEDICATION RECONCILIATION COMPLETED ON PATIENT USING EXTERNAL FILL HISTORY FROM PHARMACY. -BOBO ANDREWS, CAMILAD
--- NOTE | 2021-05-01 07:52 | PC.NURSE ---
NG tube to continuous low wall suction. Drainage brown in color and frothy. MD Vega aware. Pt has c/o abdominal discomfort that is brief when she moves. Medicated per mar x1. Pt is pale in color. F/C draining to bedside. MD Vega rounded at bedside. Report given to Anastasiya Wagner RN.
[2021-05-01 08:34] LABS: Lymphocytes % 2 % (10-50); Neutrophils % 98 % (42-76); Total Cells Counted 100
[2021-05-01 08:35] LABS: Platelet Estimate Normal
[2021-05-01 08:36] LABS: Poikilocytosis 1+
[2021-05-01 09:47] LABS: Hemoglobin 11.9 g/dL (12.2-16.2)
--- NOTE | 2021-05-01 12:08 | HMH.PTEV ---
Physical Therapy Evaluation Rehab PT IP Evaluation Start: 05/01/21 07:14 Freq: DAILYP Status: Active Protocol: Document 05/01/21 12:04 PHORBRENDON (Rec: 05/01/21 12:08 PHORNE [id number]) Subjective/History History History 75 yowf adm to [facility] with abdominal pain, N/V, weakness, and Covid PNA. She is now S/P ex-lap with perforated ulcer repair. She reports she was independent with mobility prior to adm. Subjective Subjective Pt reports mild discomfort in her abdomen, but otherwise feels better. Rehab PT IP Eval Objective Appearance Patient Behavior Appropriate Patient Orientation Person,Place,Time Difficulty following instructions none Speech Pattern Clear Ambulation Patient Able to Ambulate Yes Ambulation Observation IP General Gait Pattern Observation Shuffling Step Ambulation Distance (feet) 3 Ambulation Ability Minimal x 1 (25% assist) Balance Ability to Arise Able, uses arms to help Sitting Balance Steady, safe Standing Balance Steady, wide stance Dynamic Sitting Balance Ability Good Dynamic Standing Balance Ability Fair Transfers Bed Transfer Ability Minimal x 1 (25% assist) Chair Transfer Ability Minimal x 1 (25% assist) Sit to Stand Bed Transfer Ability Minimal x 1 (25% assist) Sit to Stand Chair Transfer Ability Minimal x 1 (25% assist) Rehab PT IP prob,goals,plan Problems Date of Evaluation: 05/01/21 PT IP Problems Bed Mobility,Transfers,Gait Rehab Potential Rehab Potential Fair Plan PT Intervention Plan Bed Mobility,Transfers,Gait, Self care,Therapeutic Exercise PT Plan Frequency BID Duration LOS Discharge Goals Bed Transfer Ability Contact Guard/Hand Hold Sit to Stand Chair Transfer Ability Contact Guard/Hand Hold Ambulation Assistive Device Rolling Walker Ambulation Distance (feet) 30 Discharge Plan PT Discharge Plan Pt is most appropriate for rehab placement at this time, but could improve to the point she can return home with family assist depending on medical stability. G -code Required No Eval Complexity Eval Charge Codes 71467 - High Complexity PHYSICIAN CERTIFICATION: I certify the specified therapy services fo
--- NOTE | 2021-05-01 12:48 | HMH.HP ---
*Admission Date: 04/30/21 *Chief complaint: abd pain *History of present illness: 75-year-old female with a recent diagnosis of Covid pneumonia who presents the emergency department with increasing nausea, vomiting, and diarrhea. She had a previous emergency department visit with similar symptoms on April 24. while in ed ct shows Pneumoperitoneum. Ruptured viscus. multiple attempts to transfer pt and was accepted but pt declined. pt admitted for covid pneumonia,and ruptured viscus. surgery consult obtained [facility] History I have reviewed the patient's past medical history: Yes Medical History: Reports:: Cancer (breast) Denies:: Diabetes Mellitus Type 1, Diabetes Mellitus Type 2 *Have you ever received a pneumonia vaccine?: No *Have you received a flu vaccine this season?: No Other Medical History: Reports: Other (Rheumatoid Arthritis, Recent Covid Pneumonia) Anesthesia experience/problems:: nac Laterality Cases: Left: Breast Biopsy Other Surgeries: Yes: Other - *Social History Smoking Status: Current every day smoker Tobacco Type: cigarettes # Packs/Day (cigarettes): 1 Alcohol Intake: never Substance Use Type: denies use *Occupational Status:: retired *Travel in the last 8 weeks: None Family Hx:: Cancer Review of Systems - Review of Systems Review of systems:: pertinent systems reviewed and negative unless documented below - Constitutional Denies body ache(s) - Eyes Denies blurry vision - ENT Denies bleeding gums - *Cardiovascular Denies chest pain at rest - *Respiratory Denies chest congestion - *Gastrointestinal Reports abdominal pain, Reports cramping, Reports nausea, Reports vomiting, Denies belching - *Genitourinary Denies abnormal periods - *Musculoskeletal Denies joint pain - Integumentary/Breasts Denies rash - *Neurologic Reports weakness, Denies headache(s), Denies seizure-like activity - Psychiatric Denies abnormal sleep pattern - Endocrine Denies excessive sweating - Hematologic/Lymphatic Denies easy bruising - Allergic/Immunologic Denies itchy eyes Meds Home Medications Medication Instructions Recorded Confirmed Type Folic Acid [Folic Acid 1mg tablet] 1 mg PO DAILY 04/30/21 04/30/21 History Hydroxychloroquine Sulfate 200 mg PO DAILY 04/30/21 04/30/21 History [Plaquenil] metHOTREXate sodium [metHOTREXate 20 mg PO WEEKLY 04/30/21 04/30/21 History 2.5mg Tablet] Allergies Allergy/AdvReac Type Severity Reaction Status Date / Time No Known Allergies Allergy Unverified 05/10/17 14:51 Exam Vital signs and Labs for Last 24 Hours: Temp Pulse Resp BP Pulse Ox 97.8 F 88 20 114/47 L 93 L 05/01/21 05:00 05/01/21 07:05 05/01/21 07:05 05/01/21 07:05 05/01/21 07:05 Laboratory Results - last 24 hr 04/30/21 08:21: Stl Aeromonas (PCR) Not detected, Stl C. cayetanensis PCR Not detected, Stool Rotavirus (PCR) Not detected, Stl Adenov F 40/41 PCR Not detected, Stool Astrovirus (PCR) Not detected, Stool Campylobacter PCR Not detected, Stl C.difficile Tox PCR Not detected, Stool Cryptosporidium PCR Not detected, Stl E.coli Shiga Tox PCR Not detected, Stool E coli O157 PCR Not detected, Stl Enterotoxigenic E PCR Not detected, Stool EPEC (PCR) Not detected, Stool EAEC (PCR) Not detected, Stl E. histolytica PCR Not detected, Stool Giardia Lamblia PCR Not detected, Stool Salmonella PCR Not detected, Stool Sapovirus (PCR) Not detected, Stl P. shigelloides PCR Not detected, Stl Shigella/EIEC PCR Not detected, St Y.enterocolitica PCR Not detected, Stool Vibrio (PCR) Not detected, Stl Vibrio cholerae PCR Not detected, Stl Norovirus GI/GII PCR Not detected 04/30/21 15:45: Troponin I < 0.01 04/30/21 15:45: Lactate 1.2 04/30/21 16:05: SARS-CoV-2 (PCR) Detected A, Influenza A Untype (PCR) Not detected, Influenza Type B (PCR) Not detected 04/30/21 17:25: Urine Color Yellow, Urine Appearance Clear, Urine pH 6.0, Ur Specific [place] 1.015, Urine Protein 1+, Urine Glucose (UA) N
--- NOTE | 2021-05-01 13:56 | HMH.PULMCON ---
*Admission Date: 04/30/21 *Reason for consult:: COVID-19 pneumonia, hypoxic respiratory failure *History of present illness: Ms. Nayak is a 75-year-old female current smoker greater than [id number] smoking history, not on any inhalers or oxygen therapy at baseline, admits baseline respiratory distress, yet to be vaccinated for COVID-19 pneumonia, diagnosed with COVID-19 pneumonia around [facility], managed at home, did not receive any treatment experienced mild worsening respiratory symptoms along with predominant GI symptoms presented to the ER and found to have small bowel perforation status post repair, needing 3 to 4 L oxygen supplementation and pulmonary was called for further management. [facility] History Medical History: Reports:: Cancer (breast) Denies:: Diabetes Mellitus Type 1, Diabetes Mellitus Type 2 *Have you ever received a pneumonia vaccine?: No *Have you received a flu vaccine this season?: No Other Medical History: Reports: Other (Rheumatoid Arthritis, Recent Covid Pneumonia) Anesthesia experience/problems:: nac Laterality Cases: Left: Breast Biopsy Other Surgeries: Yes: Other - *Social History Smoking Status: Current every day smoker Tobacco Type: cigarettes # Packs/Day (cigarettes): 1 Alcohol Intake: never Substance Use Type: denies use *Occupational Status:: retired *Travel in the last 8 weeks: None Family Hx:: Cancer ROS - Cons Reports anorexia - Card Reports shortness of breath, Reports shortness of breath with activity - Resp Respiratory: Denies chest congestion, Denies cough, Denies excessive phlegm production, Denies pain with cough - GI Gastrointestingal: Reports: abdominal pain, nausea - Psych Denies thoughts of hurting/killing others, Denies thoughts of hurting/killing yourself Meds Home Medications Medication Instructions Recorded Confirmed Type Folic Acid [Folic Acid 1mg tablet] 1 mg PO DAILY 04/30/21 04/30/21 History Hydroxychloroquine Sulfate 200 mg PO DAILY 04/30/21 04/30/21 History [Plaquenil] metHOTREXate sodium [metHOTREXate 20 mg PO WEEKLY 04/30/21 04/30/21 History 2.5mg Tablet] Allergies Allergy/AdvReac Type Severity Reaction Status Date / Time No Known Allergies Allergy Unverified 05/10/17 14:51 Exam - Constitutional Constitutional:: Present: no acute distress, comfortable - HENMT Exam HENMT: Present: normocephalic - Eye Exam Eyes:: Present: normal appearance both eyes and related structures - Neck Exam Neck:: Present: normal visual inspection - Respiratory Exam Respiratory:: Present: able to speak in complete sentences, no respiratory distress, crackles. Absent: wheezing - Cardiovascular Exam Cardiac:: Present: S1, S2 - GI Exam GI:: Present: soft. Absent: normal to inspection - Skin Exam Skin: Present: warm - Neurological Exam Neurological: Present: alert, awake - Extremities Exam Extremities: Present: no cyanosis, no clubbing, no edema Internal Medicine - CN: Reslt - Labs CBC & Chem 7: 05/01/21 06:10 05/01/21 06:10 Labs: Short CBC 05/01/21 Range/Units 06:10 WBC 11.9 H D (4.8-10.8) K/mm3 Hgb 11.9 L D (12.2-16.2) g/dL Hct 35.6 L (37.0-47.0) % Plt Count 248 (142-424) K/mm3 BMP 05/01/21 06:10 Sodium 141 Potassium 3.9 D Chloride 111 H Carbon Dioxide 20 L BUN 20 H Creatinine 0.50 L Glucose 78 Calcium 7.6 L Cardiac Enzymes 04/30/21 Range/Units 15:45 Troponin I < 0.01 (0.00-0.034) ng/ml Urine 04/30/21 Range/Units 17:25 Urine Color Yellow (Yellow) Urine Appearance Clear (Clear) Urine pH 6.0 (5.0-8.5) Ur Specific [place] 1.015 (1.005-1.030) Urine Protein 1+ (Negative) Urine Glucose (UA) Negative (Negative) Assessment and Plan (1) Pneumonia due to COVID-19 virus Status: Acute Category: Medical Code(s): U07.1 - COVID-19; J12.82 - Pneumonia due to coronavirus disease 2019 (2) Hepatic infarction Status: Acute Categor
--- NOTE | 2021-05-01 14:22 | PC.NURSE ---
pt ambulated to chair with Gary in physical therapy this am. will ambulate again when ready to go back to bed.
--- NOTE | 2021-05-01 16:15 | PC.NURSE ---
1615 Spoke with Ba Momin and Dr Sanchez. pt is ok to be transferred to Stepdown status. Practitioner was notified that pt vitals have been stable so far this shift. it was noted that the pt was having brief ectopy. (occasional PVC)
--- NOTE | 2021-05-01 16:21 | PC.NURSE ---
This pt has a designated POA/decision maker. Pt herself is noted to be POA /decision maker for her son (who is an inpt at this time and who is critically ill.) It was discussed with pt/ Kayleigh Nayak that if for some reason she is unable to make medical decisions due to a change in her medical status, who did she want to designate as decision maker for her son (who is currently unable to make decisions for himself). Bara/mother states she wishes for Fiorella Mauricio and Jose mauricio to make decisions for him if she is unable. Spoke with Fiorella and Jose they are agreeable to be decision maker for this pt.
--- NOTE | 2021-05-01 18:38 | PC.NURSE ---
pt has denied needing any pain meds this shift. when offered she states that she only has a twinge of pain, then is goes away. pt was noted to become tachycardic in the 120's when ambulating back to the bed from the chair. with rest, heart rate returned to the mid 90's
[2021-05-02] VITALS (20 sets, daily range): BP systolic 121–173; BP diastolic 58–86; PULSE 88–137; RESP 18–30; TEMP 36.5–36.8; O2SAT 89–100; BMI 18.1
--- NOTE | 2021-05-02 03:40 | PC.NURSE ---
No acute changes. Pt has rested well this shift. She states she has had some discomfort to abdomen at times. Pt states it comes and goes. She declines any pain medication. NG tube to (R) nare to continuous low wall suction. Drainage is brown and frothy. aware. VSS. Medication administered per mar. Will continue to monitor.
[2021-05-02 06:34] LABS: Basophils % 0.1 % (0.1-2.0); Hemoglobin 11.4 g/dL (12.2-16.2); Lymphocytes # 0.5 K/mm3 (0.7-4.5); Lymphocytes % 3.8 % (10-50); Mean Corpuscular HGB Conc 31.8 g/dL (31.8-35.4); Mean Corpuscular Hemoglobin 30.4 pg (27.0-31.2); Mean Corpuscular Volume 95.6 fl (81-99); Mean Platelet Volume 8.2 fl (7.4-10.4); Monocytes # 0.4 K/mm3 (0.1-1.0); Monocytes % 3.1 % (1.7-9.3); Neutrophils # 12.4 K/mm3 (1.8-7.8); Neutrophils % 93.1 % (37.0-80.0); Platelet Count 309 K/mm3 (142-424); Red Blood Count 3.76 M/mm3 (4.20-5.40); Red Cell Distribution Width 14.5 % (11.5-17.5); White Blood Count 13.4 K/mm3 (4.8-10.8)
[2021-05-02 06:36] LABS: MANUAL DIFFERENTIAL MANUAL DIFFERENTIAL (MANUAL DIFF)
[2021-05-02 06:49] LABS: Chloride 116 mmol/L (98-107); Sodium 147 mmol/L (136-145)
[2021-05-02 06:50] LABS: Potassium 3.4 mmoL/L (3.5-5.1)
[2021-05-02 06:52] LABS: Blood Urea Nitrogen 24 mg/dl (7-17); Creatinine Clearance Estimated 38 mL/min (50-200); Estimated Glomerular Filt Rate 120 ml/min (>60); GFR (African American) 145 ML/MIN (>60)
[2021-05-02 06:53] LABS: Anion Gap 13.4 mEq/L (5-15); Calcium 8.3 mg/dl (8.4-10.2); Carbon Dioxide 21 mmol/L (22.0-30.0); Glucose 97 mg/dl (74-100)
[2021-05-02 06:58] LABS: C-Reactive Protein 207.8 mg/L (0-4)
[2021-05-02 07:01] LABS: NT Pro Brain Natriuretic Pep. 2690 pg/mL (0-450)
[2021-05-02 08:13] LABS: Lymphocytes % 4 % (10-50); Monocytes % 3 % (2-9); Neutrophils % 93 % (42-76); Total Cells Counted 100
[2021-05-02 08:14] LABS: Acanthocytes 1+; Platelet Estimate Normal
--- NOTE | 2021-05-02 09:57 | P.PN_ITS ---
Internal Medicine - PN: Subj *Date: 05/03/21 *Time: 07:23 Interval history: doing better this am - only c/o is dry mouth - has ng tube Exam Vital signs and Labs for Last 24 Hours: Temp Pulse Resp BP Pulse Ox 97.8 F 110 H 20 169/79 H 90 L 05/02/21 04:00 05/02/21 09:00 05/02/21 09:00 05/02/21 09:00 05/02/21 09:00 Laboratory Results - last 24 hr 05/02/21 06:03: WBC 13.4 H, RBC 3.76 L, Hgb 11.4 L, Hct 36.0 L, MCV 95.6, MCH 30.4, MCHC 31.8, RDW 14.5, Plt Count 309, MPV 8.2, Neut % (Auto) 93.1 H, Lymph % (Auto) 3.8 L, [place] % (Auto) 3.1, Eos % (Auto) 0.0 L, Baso % (Auto) 0.1, Neut # (Auto) 12.4 H, Lymph # (Auto) 0.5 L, [place] # (Auto) 0.4, Eos # (Auto) 0.0, Baso # (Auto) 0.0, Total Counted 100, Neutrophils % (Manual) 93 H, Lymphocytes % (Manual) 4 L, Monocytes % (Manual) 3, Platelet Estimate Normal, Acanthocytes (Spur) 1+ 05/02/21 06:03: Sodium 147 H, Potassium 3.4 L, Chloride 116 H, Carbon Dioxide 21 L, Anion Gap 13.4, BUN 24 H, Creatinine 0.50 L, Estimated Creat Clear 38, Estimated GFR 120, Est GFR ( Amer) 145, Glucose 97 D, Calcium 8.3 L, C- Reactive Protein 207.8 H, NT-Pro-B Natriuret Pep 2690 H I & O for Last 24 hours: Intake & Output 04/29/21 04/30/21 05/01/21 05/02/21 11:59 11:59 11:59 11:59 Intake Total 1704 / 1704 2210 / 2210 Output Total 555 / 555 300 / 300 Balance 1149 / 1149 1910 / 1910 Weight 97 lb 104 lb 113 lb 1.6 oz - Constitutional no acute distress - *Routine HEENT Exam Head: Present: normocephalic Eye: Present: EOMI, PERRL ENT: Present: mucous membranes dry - *Routine Neck Exam Absent: JVD - *Routine Respiratory Exam Present: decreased breath sounds - *Routine Cardiovascular Exam Present: RRR - *Routine Abdominal Exam Present: soft, tenderness, other (has ng tube) - *Routine Extremities Exam Absent: calf tenderness - *Routine Skin Exam Present: intact - *Routine Neurological Exam Present: CN II-XII intact - Routine Psychiatric Exam Present: cooperative Assessment and Plan (1) Pneumonia due to COVID-19 virus Status: Acute Category: Medical Code(s): U07.1 - COVID-19; J12.82 - Pneumonia due to coronavirus disease 2019 (2) Hepatic infarction Status: Acute Category: Medical Code(s): K76.3 - Infarction of liver (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
--- NOTE | 2021-05-02 10:17 | P.PN_ITS ---
Subjective Narrative: Sitting in chair. Per nursing, she has been having some difficulty maintaining oxygenation. She states that she feels okay . She is not complaining of pain. Progress Note: A&P (1) Pneumonia due to COVID-19 virus Status: Acute (2) Hepatic infarction Status: Acute (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 (4) Duodenal ulcer with perforation Status: Acute Assessment and plan: Overall, stable from a surgical standpoint status post exploratory laparotomy with Henrique patch. Continue strict NPO status Nasogastric decompression to continue Will assess for leak (Gastrografin via nasogastric tube) early next week Assessment and Plan for All Diagnoses:: Continue incentive spirometer Continue ambulation as much as possible Continue physical therapy Exam Vital signs and Labs for Last 24 Hours: Temp Pulse Resp BP Pulse Ox 97.8 F 110 H 20 169/79 H 90 L 05/02/21 04:00 05/02/21 09:00 05/02/21 09:00 05/02/21 09:00 05/02/21 09:00 Laboratory Results - last 24 hr 05/02/21 06:03: WBC 13.4 H, RBC 3.76 L, Hgb 11.4 L, Hct 36.0 L, MCV 95.6, MCH 30.4, MCHC 31.8, RDW 14.5, Plt Count 309, MPV 8.2, Neut % (Auto) 93.1 H, Lymph % (Auto) 3.8 L, [place] % (Auto) 3.1, Eos % (Auto) 0.0 L, Baso % (Auto) 0.1, Neut # (Auto) 12.4 H, Lymph # (Auto) 0.5 L, [place] # (Auto) 0.4, Eos # (Auto) 0.0, Baso # (Auto) 0.0, Total Counted 100, Neutrophils % (Manual) 93 H, Lymphocytes % (Manual) 4 L, Monocytes % (Manual) 3, Platelet Estimate Normal, Acanthocytes (Spur) 1+ 05/02/21 06:03: Sodium 147 H, Potassium 3.4 L, Chloride 116 H, Carbon Dioxide 21 L, Anion Gap 13.4, BUN 24 H, Creatinine 0.50 L, Estimated Creat Clear 38, Estimated GFR 120, Est GFR ( Amer) 145, Glucose 97 D, Calcium 8.3 L, C- Reactive Protein 207.8 H, NT-Pro-B Natriuret Pep 2690 H I & O for Last 24 hours: Intake & Output 04/29/21 04/30/21 05/01/21 05/02/21 11:59 11:59 11:59 11:59 Intake Total 1704 / 1704 2210 / 2210 Output Total 555 / 555 300 / 300 Balance 1149 / 1149 1910 / 1910 Weight 97 lb 104 lb 113 lb 1.6 oz - Constitutional no acute distress - *Routine Respiratory Exam Comments: On nasal cannula oxygen. She has not no apparent severe distress. - *Routine Cardiovascular Exam Present: tachycardia - *Routine Abdominal Exam Comments: Incision is intact. No sign of infection.
[2021-05-03] VITALS (15 sets, daily range): BP systolic 102–148; BP diastolic 53–85; PULSE 105–139; RESP 16–39; TEMP 36.6–37; O2SAT 91–100; BMI 18.1
--- NOTE | 2021-05-03 02:00 | ECG_ITS ---
APPROVED REPORT Exam: Resting ECG HR:138 bpm ECG Measurements Heart Rate 138 AXES IL 136 P 70 QRSd 74 QRS 2 QT 308 T 87 QTc 466 Conclusion Sinus tachycardia Left atrial abnormality Low voltage QRS Nonspecific ST and T wave abnormality Abnormal ECG Electronically signed by : Rodriguez Rosario MD 05/04/2021 20:21:23
--- NOTE | 2021-05-03 07:11 | PC.NURSE ---
pt on 5L NC at beginning of shift with O2 sats 92-96, HR low 100's at beginning of shift and then increased to 130-140 and sustained, EKG obtained and read as sinus tach, adapted physical education specialist doctor called for heart rate increase, new orders received and carried out, around 0300 pt began to desat, O2 dropped to around 60%, RT notified and came to floor, Bipap placed on patient and sats returned to high 80's and low 90's, adapted physical education specialist notified again and made aware of patient's declining respiratory status, the need for Bipap and HR staying 130-140, no new orders received, patient has tried to pull of mask, but has been educated on the importance of keeping mask on, sats currently 95% on bipap
[2021-05-03 07:26] LABS: Chloride 121 mmol/L (98-107); Potassium 3.3 mmoL/L (3.5-5.1)
[2021-05-03 07:29] LABS: Blood Urea Nitrogen 22 mg/dl (7-17); Carbon Dioxide 22 mmol/L (22.0-30.0); Creatinine Clearance Estimated 38 mL/min (50-200); Estimated Glomerular Filt Rate 97 ml/min (>60); GFR (African American) 117 ML/MIN (>60)
[2021-05-03 07:30] LABS: Calcium 8.4 mg/dl (8.4-10.2); Glucose 98 mg/dl (74-100)
[2021-05-03 07:46] LABS: Basophils % 0.1 % (0.1-2.0); Hematocrit 38.6 % (37.0-47.0); Lymphocytes # 0.4 K/mm3 (0.7-4.5); Lymphocytes % 2.9 % (10-50); Mean Corpuscular HGB Conc 31.1 g/dL (31.8-35.4); Mean Corpuscular Hemoglobin 31.4 pg (27.0-31.2); Mean Corpuscular Volume 100.7 fl (81-99); Mean Platelet Volume 8.2 fl (7.4-10.4); Monocytes # 0.4 K/mm3 (0.1-1.0); Monocytes % 2.8 % (1.7-9.3); Neutrophils # 12.9 K/mm3 (1.8-7.8); Neutrophils % 94.2 % (37.0-80.0); Platelet Count 322 K/mm3 (142-424); Red Blood Count 3.83 M/mm3 (4.20-5.40); Red Cell Distribution Width 14.8 % (11.5-17.5); White Blood Count 13.7 K/mm3 (4.8-10.8)
[2021-05-03 07:50] LABS: Anion Gap 12.3 mEq/L (5-15)
[2021-05-03 07:53] LABS: MANUAL DIFFERENTIAL MANUAL DIFFERENTIAL (MANUAL DIFF)
[2021-05-03 08:35] LABS: Sodium 152 mmol/L (136-145)
--- NOTE | 2021-05-03 09:03 | XR_ITS ---
PROCEDURE INFORMATION: Exam: XR Chest Exam date and time: 05/03/2021 9:03 AM Age: 75 years old Clinical indication: Shortness of breath; Additional info: Hypoxia, coivd positive TECHNIQUE: Imaging protocol: XR of the chest. Views: 1 view. COMPARISON: CR XR CHEST 2V 04/30/2021 8:20 AM FINDINGS: Tubes, catheters and devices: Feeding tube courses into the proximal stomach with distal tip not visualized. Lungs: COPD, interstitial disease, and worsening bilateral airspace disease in the setting of reported COVID-19 pneumonitis. Pleural spaces: Small suspected pleural effusions, along with apical pleural thickening. Heart/Mediastinum: No cardiomegaly. Bones/joints: Osteopenia and degenerative change. Soft tissues: Skin cassidy overlying the upper abdomen. IMPRESSION: 1. COPD, interstitial disease, and worsening bilateral airspace disease in the setting of reported COVID-19 pneumonitis. 2. Small suspected pleural effusions, along with apical pleural thickening.
[2021-05-03 09:46] LABS: Lymphocytes % 6 % (10-50); Monocytes % 1 % (2-9); Neutrophils % 93 % (42-76); Total Cells Counted 100
[2021-05-03 09:47] LABS: Platelet Estimate Normal; RBC Morphology Normal
--- NOTE | 2021-05-03 09:50 | HMH.ITSTN ---
I spoke to nurse and Darcy and advised no one is here radiologists hernandez to do the Fluro study on Tuesday. I will leave for tech tomorrow to coordinate this. Also patient is on by pap and would have to be stepped down to regular oxygen lower flow before we can bring her down for the fluro study.
--- NOTE | 2021-05-03 10:39 | HMH.ACPN2 ---
Internal Medicine - PN: Subj *Date: 05/04/21 *Time: 06:45 Interval history: has increased resp issues on bpap- also increased na - but alert Exam Vital signs and Labs for Last 24 Hours: Temp Pulse Resp BP Pulse Ox 97.9 F 123 H 23 121/66 96 05/03/21 08:00 05/03/21 08:00 05/03/21 08:00 05/03/21 08:00 05/03/21 08:00 Laboratory Results - last 24 hr 05/03/21 05:55: WBC 13.7 H, RBC 3.83 L, Hgb 12.0 L, Hct 38.6, MCV 100.7 H, MCH 31.4 H, MCHC 31.1 L, RDW 14.8, Plt Count 322, MPV 8.2, Neut % (Auto) 94.2 H, Lymph % (Auto) 2.9 L, [place] % (Auto) 2.8, Eos % (Auto) 0.0 L, Baso % (Auto) 0.1, Neut # (Auto) 12.9 H, Lymph # (Auto) 0.4 L, [place] # (Auto) 0.4, Eos # (Auto) 0.0, Baso # (Auto) 0.0, Total Counted 100, Neutrophils % (Manual) 93 H, Lymphocytes % (Manual) 6 L, Monocytes % (Manual) 1 L, Platelet Estimate Normal, RBC Morphology Normal 05/03/21 05:55: Sodium 152 H*, Potassium 3.3 L, Chloride 121 H, Carbon Dioxide 22, Anion Gap 12.3, BUN 22 H, Creatinine 0.60, Estimated Creat Clear 38, Estimated GFR 97, Est GFR ( Amer) 117, Glucose 98, Calcium 8.4 I & O for Last 24 hours: Intake & Output 04/30/21 05/01/21 05/02/21 05/03/21 11:59 11:59 11:59 11:59 Intake Total 1704 / 1704 2210 / 2210 3030 / 3030 Output Total 555 / 555 300 / 300 1445 / 1445 Balance 1149 / 1149 1910 / 1910 1585 / 1585 Weight 97 lb 104 lb 113 lb 1.6 oz 113 lb 1 oz Microbiology Reports for the Last 24 Hours: Microbiology 05/01/21 16:00 Nose - Nasal MRSA Culture - Final Negative 04/30/21 11:09 Blood Blood Culture - Preliminary NO GROWTH AFTER 48 HOURS 04/30/21 11:09 Blood Blood Culture - Preliminary NO GROWTH AFTER 48 HOURS - Constitutional no acute distress - *Routine HEENT Exam Head: Present: normocephalic Eye: Present: EOMI, PERRL ENT: Present: mucous membranes dry - *Routine Neck Exam Absent: JVD - *Routine Respiratory Exam Present: decreased breath sounds - *Routine Cardiovascular Exam Present: RRR - *Routine Abdominal Exam Present: soft - *Routine Extremities Exam Absent: calf tenderness - *Routine Skin Exam Present: intact - *Routine Neurological Exam Present: alert, CN II-XII intact - Routine Psychiatric Exam Present: unable to assess Assessment and Plan (1) Pneumonia due to COVID-19 virus Status: Acute Category: Medical Code(s): U07.1 - COVID-19; J12.82 - Pneumonia due to coronavirus disease 2019 (2) Hepatic infarction Status: Acute Category: Medical Code(s): K76.3 - Infarction of liver (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
--- NOTE | 2021-05-03 10:51 | P.PN_ITS ---
Subjective Narrative: Worsening respiratory status over last 24 hours. Progress Note: A&P (1) Pneumonia due to COVID-19 virus Status: Acute (2) Hepatic infarction Status: Acute (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 (4) Duodenal ulcer with perforation Status: Acute Assessment and plan: Gastrografin study via NG tube ordered. This study cannot be performed on the weekend; therefore, it will likely be completed early tomorrow morning. If no obvious leak noted on fluoroscopy study, the patient's nasogastric tube can be discontinued and a clear liquid diet (if she can tolerate) will be ordered. Exam Vital signs and Labs for Last 24 Hours: Temp Pulse Resp BP Pulse Ox 97.9 F 123 H 23 121/66 96 05/03/21 08:00 05/03/21 08:00 05/03/21 08:00 05/03/21 08:00 05/03/21 08:00 Laboratory Results - last 24 hr 05/03/21 05:55: WBC 13.7 H, RBC 3.83 L, Hgb 12.0 L, Hct 38.6, MCV 100.7 H, MCH 31.4 H, MCHC 31.1 L, RDW 14.8, Plt Count 322, MPV 8.2, Neut % (Auto) 94.2 H, Lymph % (Auto) 2.9 L, [place] % (Auto) 2.8, Eos % (Auto) 0.0 L, Baso % (Auto) 0.1, Neut # (Auto) 12.9 H, Lymph # (Auto) 0.4 L, [place] # (Auto) 0.4, Eos # (Auto) 0.0, Baso # (Auto) 0.0, Total Counted 100, Neutrophils % (Manual) 93 H, Lymphocytes % (Manual) 6 L, Monocytes % (Manual) 1 L, Platelet Estimate Normal, RBC Morphology Normal 05/03/21 05:55: Sodium 152 H*, Potassium 3.3 L, Chloride 121 H, Carbon Dioxide 22, Anion Gap 12.3, BUN 22 H, Creatinine 0.60, Estimated Creat Clear 38, Estimated GFR 97, Est GFR ( Amer) 117, Glucose 98, Calcium 8.4 I & O for Last 24 hours: Intake & Output 04/30/21 05/01/21 05/02/21 05/03/21 11:59 11:59 11:59 11:59 Intake Total 1704 / 1704 2210 / 2210 3030 / 3030 Output Total 555 / 555 300 / 300 1445 / 1445 Balance 1149 / 1149 1910 / 1910 1585 / 1585 Weight 97 lb 104 lb 113 lb 1.6 oz 113 lb 1 oz Microbiology Reports for the Last 24 Hours: Microbiology 05/01/21 16:00 Nose - Nasal MRSA Culture - Final Negative 04/30/21 11:09 Blood Blood Culture - Preliminary NO GROWTH AFTER 48 HOURS 04/30/21 11:09 Blood Blood Culture - Preliminary NO GROWTH AFTER 48 HOURS - Constitutional no acute distress - *Routine Respiratory Exam Comments: On BiPAP - *Routine Cardiovascular Exam Present: tachycardia - *Routine Abdominal Exam Comments: Incision clean, dry, and intact. No erythema.
[2021-05-04] VITALS (19 sets, daily range): BP systolic 104–160; BP diastolic 55–88; PULSE 93–133; RESP 11–41; TEMP 36.7–37.3; O2SAT 86–100; BMI 18.3; BMI 18.1
--- NOTE | 2021-05-04 06:20 | PC.NURSE ---
no acute events this shift, remains on bipap, O2 sats 98-100%, pt educated again on importance of keeping Bipap on, HR 103-110 this shift, cohen draining clear yellow urine, 1000 mL out so far this shift
--- NOTE | 2021-05-04 06:54 | FL_ITS ---
PROCEDURE: FL UPPER GI W GASTROGRAFIN CLINICAL INDICATION: Assess for leak status post Henrique patch COMPARISON: No exams were available for comparison FINDINGS: S/p recent surgery for perforated duodenal ulcer. There is a nasogastric tube present. The tip is in the region of the body of the stomach. Residual contrast is present in the colon from previous CT scan. Approximately 120 mL of 50 50 mix a Gastrografin was injected through the in G-tube. There is no evidence contrast leak from the duodenum. Stomach has a grossly unremarkable appearance. There is no evidence of obstruction IMPRESSION: No evidence of contrast leakage or obstruction from the recent duodenal surgery. Dictated by: Krystian Spencer MD 05/04/2021 12:29 Krystian Spencer MD in [facility] 05/04/2021 12:29
[2021-05-04 08:38] LABS: Basophils % 0.1 % (0.1-2.0); Hematocrit 37.6 % (37.0-47.0); Hemoglobin 11.9 g/dL (12.2-16.2); Lymphocytes # 0.5 K/mm3 (0.7-4.5); Mean Corpuscular HGB Conc 31.6 g/dL (31.8-35.4); Mean Corpuscular Hemoglobin 30.5 pg (27.0-31.2); Mean Corpuscular Volume 96.7 fl (81-99); Mean Platelet Volume 7.5 fl (7.4-10.4); Monocytes # 0.4 K/mm3 (0.1-1.0); Monocytes % 3.4 % (1.7-9.3); Neutrophils # 11.3 K/mm3 (1.8-7.8); Neutrophils % 92.5 % (37.0-80.0); Platelet Count 249 K/mm3 (142-424); Red Blood Count 3.89 M/mm3 (4.20-5.40); Red Cell Distribution Width 14.9 % (11.5-17.5); White Blood Count 12.2 K/mm3 (4.8-10.8)
[2021-05-04 08:40] LABS: MANUAL DIFFERENTIAL MANUAL DIFFERENTIAL (MANUAL DIFF)
--- NOTE | 2021-05-04 08:43 | HMH.GSPN ---
Subjective Narrative: Per nursing the patient's respiratory status has somewhat stabilized . Progress Note: A&P (1) Pneumonia due to COVID-19 virus Status: Acute (2) Hepatic infarction Status: Acute (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 (4) Duodenal ulcer with perforation Status: Acute Assessment and plan: Gastrografin UGI via NG ordered. If she is clinically stable enough to undergo this procedure and if no leak is found...her nasogastric tube can be discontinued (unless deemed necessary by primary service). Exam Vital signs and Labs for Last 24 Hours: Temp Pulse Resp BP Pulse Ox 98.0 F 103 H 28 H 124/59 L 99 05/04/21 06:00 05/04/21 06:00 05/04/21 06:00 05/04/21 06:00 05/04/21 06:00 Laboratory Results - last 24 hr 05/03/21 05:55: Total Counted 100, Neutrophils % (Manual) 93 H, Lymphocytes % (Manual) 6 L, Monocytes % (Manual) 1 L, Platelet Estimate Normal, RBC Morphology Normal 05/04/21 08:05: WBC 12.2 H, RBC 3.89 L, Hgb 11.9 L, Hct 37.6, MCV 96.7, MCH 30.5, MCHC 31.6 L, RDW 14.9, Plt Count 249, MPV 7.5, Neut % (Auto) 92.5 H, Lymph % (Auto) 4.0 L, [place] % (Auto) 3.4, Eos % (Auto) 0.0 L, Baso % (Auto) 0.1, Neut # (Auto) 11.3 H, Lymph # (Auto) 0.5 L, [place] # (Auto) 0.4, Eos # (Auto) 0.0, Baso # (Auto) 0.0 I & O for Last 24 hours: Intake & Output 05/01/21 05/02/21 05/03/21 05/04/21 11:59 11:59 11:59 11:59 Intake Total 1704 / 1704 2210 / 2210 3030 / 3030 2056 Output Total 555 / 555 300 / 300 1445 / 1445 1000 / 1000 Balance 1149 / 1149 1910 / 1910 1585 / 1585 1057 / 1057 Weight 104 lb 113 lb 1.6 oz 113 lb 1 oz 113 lb 12.8 oz Microbiology Reports for the Last 24 Hours: Microbiology 05/01/21 16:00 Nose - Nasal MRSA Culture - Final Negative - Constitutional no acute distress - *Routine Respiratory Exam Comments: Remains on BiPAP. Currently no distress. - *Routine Cardiovascular Exam Comments: Mildly tachycardic - *Routine Abdominal Exam Comments: Incision remains intact. No erythema/drainage.
[2021-05-04 08:51] LABS: Chloride 118 mmol/L (98-107)
[2021-05-04 08:52] LABS: Potassium 3.2 mmoL/L (3.5-5.1)
[2021-05-04 08:54] LABS: Blood Urea Nitrogen 23 mg/dl (7-17); Creatinine Clearance Estimated 38 mL/min (50-200); Estimated Glomerular Filt Rate 97 ml/min (>60); GFR (African American) 117 ML/MIN (>60)
[2021-05-04 08:55] LABS: Calcium 8.3 mg/dl (8.4-10.2); Carbon Dioxide 30 mmol/L (22.0-30.0); Glucose 100 mg/dl (74-100)
[2021-05-04 08:57] LABS: Lymphocytes % 5 % (10-50); Monocytes % 1 % (2-9); Neutrophils % 94 % (42-76); Total Cells Counted 100
[2021-05-04 08:58] LABS: Anisocytosis 1+; Platelet Estimate Normal; RBC Morphology Normal
--- NOTE | 2021-05-04 09:46 | P.PN_ITS ---
Internal Medicine - PN: Subj *Date: 05/04/21 *Time: 09:15 Interval history: pt just back from radiology o2 79% on nonrebreather, placed back on bipap Exam Vital signs and Labs for Last 24 Hours: Temp Pulse Resp BP Pulse Ox 98.0 F 103 H 28 H 124/59 L 99 05/04/21 06:00 05/04/21 06:00 05/04/21 06:00 05/04/21 06:00 05/04/21 06:00 Laboratory Results - last 24 hr 05/03/21 05:55: Total Counted 100, Neutrophils % (Manual) 93 H, Lymphocytes % (Manual) 6 L, Monocytes % (Manual) 1 L, Platelet Estimate Normal, RBC Morphology Normal 05/04/21 08:05: WBC 12.2 H, RBC 3.89 L, Hgb 11.9 L, Hct 37.6, MCV 96.7, MCH 30.5, MCHC 31.6 L, RDW 14.9, Plt Count 249, MPV 7.5, Neut % (Auto) 92.5 H, Lymph % (Auto) 4.0 L, [place] % (Auto) 3.4, Eos % (Auto) 0.0 L, Baso % (Auto) 0.1, Neut # (Auto) 11.3 H, Lymph # (Auto) 0.5 L, [place] # (Auto) 0.4, Eos # (Auto) 0.0, Baso # (Auto) 0.0, Total Counted 100, Neutrophils % (Manual) 94 H, Lymphocytes % (Manual) 5 L, Monocytes % (Manual) 1 L, Platelet Estimate Normal, RBC Morphology Normal, Anisocytosis 1+ 05/04/21 08:05: Potassium 3.2 L, Carbon Dioxide 30, BUN 23 H, Creatinine 0.60, Estimated Creat Clear 38, Estimated GFR 97, Est GFR ( Amer) 117, Glucose 100, Calcium 8.3 L I & O for Last 24 hours: Intake & Output 05/01/21 05/02/21 05/03/21 05/04/21 11:59 11:59 11:59 11:59 Intake Total 1704 / 1704 2210 / 2210 3030 / 3030 2056 / 2056 Output Total 555 / 555 300 / 300 1445 / 1445 1000 / 1000 Balance 1149 / 1149 1910 / 1910 1585 / 1585 1057 / 1057 Weight 104 lb 113 lb 1.6 oz 113 lb 1 oz 113 lb 12.8 oz Microbiology Reports for the Last 24 Hours: Microbiology 05/01/21 16:00 Nose - Nasal MRSA Culture - Final Negative - Constitutional no acute distress, chronically ill appearing - *Routine HEENT Exam Head: Present: normocephalic Eye: Present: PERRL ENT: Present: mucous membranes moist - *Routine Neck Exam Present: supple. Absent: lymphadenopathy - *Routine Respiratory Exam Present: CTA bilaterally - *Routine Cardiovascular Exam Present: tachycardia - *Routine Abdominal Exam Present: soft, normoactive bowel sounds. Absent: tenderness - *Routine Extremities Exam Absent: cyanosis, clubbing, edema - *Routine Skin Exam Comments: incision c/d/i, cassidy in place - *Routine Neurological Exam Present: alert, oriented X3 Assessment and Plan (1) Pneumonia due to COVID-19 virus Status: Acute Category: Medical Code(s): U07.1 - COVID-19; J12.82 - Pneumonia due to coronavirus disease 2019 (2) Hepatic infarction Status: Acute Category: Medical Code(s): K76.3 - Infarction of liver (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 - Assessment and plan all Dx Assessment and Plan for all problems:: rounded with dr ng all orders per dr ng continue all care surgery consult pulm consult
--- NOTE | 2021-05-04 09:53 | P.PN_ITS ---
Internal Medicine - PN: Subj *Date: 05/04/21 *Time: 09:53 Exam Vital signs and Labs for Last 24 Hours: Temp Pulse Resp BP Pulse Ox 98.0 F 103 H 28 H 124/59 L 99 05/04/21 06:00 05/04/21 06:00 05/04/21 06:00 05/04/21 06:00 05/04/21 06:00 Laboratory Results - last 24 hr 05/04/21 08:05: WBC 12.2 H, RBC 3.89 L, Hgb 11.9 L, Hct 37.6, MCV 96.7, MCH 30.5, MCHC 31.6 L, RDW 14.9, Plt Count 249, MPV 7.5, Neut % (Auto) 92.5 H, Lymph % (Auto) 4.0 L, [place] % (Auto) 3.4, Eos % (Auto) 0.0 L, Baso % (Auto) 0.1, Neut # (Auto) 11.3 H, Lymph # (Auto) 0.5 L, [place] # (Auto) 0.4, Eos # (Auto) 0.0, Baso # (Auto) 0.0, Total Counted 100, Neutrophils % (Manual) 94 H, Lymphocytes % (Manual) 5 L, Monocytes % (Manual) 1 L, Platelet Estimate Normal, RBC Morphology Normal, Anisocytosis 1+ 05/04/21 08:05: Potassium 3.2 L, Carbon Dioxide 30, BUN 23 H, Creatinine 0.60, Estimated Creat Clear 38, Estimated GFR 97, Est GFR ( Amer) 117, Glucose 100, Calcium 8.3 L I & O for Last 24 hours: Intake & Output 05/01/21 05/02/21 05/03/21 05/04/21 23:59 23:59 23:59 23:59 Intake Total 1337 / 1337 2425 / 2425 2832 / 2832 907 / 907 Output Total 800 / 800 720 / 720 725 / 1725 1000 / 1000 Balance 537 / 537 1705 / 1705 2107 / 1107 -93 / -93 Weight 47.174 kg 51.301 kg 51.284 kg 51.619 kg Microbiology Reports for the Last 24 Hours: Microbiology 05/01/21 16:00 Nose - Nasal MRSA Culture - Final Negative Assessment and Plan (1) Pneumonia due to COVID-19 virus Status: Acute Category: Medical Code(s): U07.1 - COVID-19; J12.82 - Pneumonia due to coronavirus disease 2019 (2) Hepatic infarction Status: Acute Category: Medical Code(s): K76.3 - Infarction of liver (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 The patient's infection will respond to the chosen ABx?: Yes Is the patient receiving the right drug, dose, and route?: Yes Could a more targeted ABx be ordered?: No
[2021-05-04 09:58] LABS: Anion Gap 10.2 mEq/L (5-15)
[2021-05-04 09:59] LABS: Sodium 155 mmol/L (136-145)
--- NOTE | 2021-05-04 13:03 | HMH.PULMPN ---
Internal Medicine - PN: Subj *Date: 05/04/21 *Time: 13:03 Interval history: Patient admits improvement in her symptoms. She appears more lethargic Exam - Constitutional Constitutional:: Absent: no acute distress, comfortable - HENMT Exam HENMT: Present: normocephalic - Eye Exam Eyes:: Present: normal appearance both eyes and related structures - Neck Exam Neck:: Present: normal visual inspection - Respiratory Exam Respiratory:: Present: respiratory distress, decreased breath sounds, crackles - Cardiovascular Exam Cardiac:: Present: S1, S2 - GI Exam GI:: Present: soft - Skin Exam Skin: Present: warm - Neurological Exam Neurological: Present: awake - Extremities Exam Extremities: Present: no cyanosis, no clubbing, no edema Assessment and Plan (1) Pneumonia due to COVID-19 virus Status: Acute Category: Medical Code(s): U07.1 - COVID-19; J12.82 - Pneumonia due to coronavirus disease 2019 (2) Hepatic infarction Status: Acute Category: Medical Code(s): K76.3 - Infarction of liver (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 - Assessment and plan all Dx Assessment and Plan for all problems:: #History of COVID-19 pneumonia: #Hypoxic respiratory failure: Current smoker greater than [id number] smoking history. History of rheumatoid arthritis, on methotrexate and hydroxychloroquine. yet to be vaccinated for COVID-19. Diagnosed around . Progressively worsening respiratory and GI symptoms. Lower lung lopez on CT abdomen showed diffuse GGO airspace disease with increased interstitial markings. The possibility of underlying interstitial lung disease cannot be completely ruled out, need to be followed with PFT & HRCT in the future. chest x-ray showed bilateral infiltrates along with hyperexpanded lungs. CRP significantly elevated 162. Interval update: Patient respiratory status worsened over the weekend, escalated to BiPAP. Patient received a dose of Lasix yesterday. Her FiO2 continued to improve since then and she was weaned to 50% with saturations maintained at 94% and above. We'll give her additional dose of Lasix and will plan to wean her to nasal cannula. Auscultation revealed bibasilar crackles with decreased breath sounds. Patient appears more lethargic than previous. BNP elevated at 2690. CRP on admission elevated at 207 Blood cultures no growth 48 h. Nasal MRSA PCR negative. Plan: Lasix 40 mg IV once after potassium repletion DuoNebs every 6 hours scheduled along with budesonide every 12 scheduled. We'll closely monitor her clinical status, will hold off on initiating steroids at this point of time given her recent surgery for duodenal perforation Continue intensive spirometry every 1 hour. Continue Zosyn. #Thank you for involving pulmonary in this patient care. We will continue to follow.
--- NOTE | 2021-05-04 13:06 | HMH.ANESII ---
[facility] Anesthesia Record Part II Discharge Time: 19:35 Destination: Second Floor PACU nurse assessment reviewed?: Yes Patient Condition:: Good Anesthesia Complications:: None Swallowing reflex intact?: Yes Cyanosis?: No Blood Pressure: 134/55 Pulse Rate: 93 Temperature: 99.1 F Mental Status: Alert & Oriented Pain level:: 0 Nausea and/or vomitting:: None Intake, IV Amount: 0
--- NOTE | 2021-05-04 15:37 | DIET.NUTRFU ---
NPO since 04/30 may benefit from eternal nutrition if oral is not feasible
[2021-05-05] VITALS (32 sets, daily range): BP systolic 61–169; BP diastolic 33–90; PULSE 75–129; RESP 18–45; TEMP 36.6–37.5; O2SAT 84–140; BMI 17.6
--- NOTE | 2021-05-05 04:58 | PC.NURSE ---
pt has rested t/o shift, cohen remains in place, NG draining dark brown liquid, HR has been elevated, rate 105-120, no complaint of pain this shift, midline incision open to air,
[2021-05-05 07:12] LABS: Basophils % 0.3 % (0.1-2.0); Eosinophils % 0.1 % (0.1-12.0); Hematocrit 39.5 % (37.0-47.0); Hemoglobin 12.9 g/dL (12.2-16.2); Lymphocytes # 0.6 K/mm3 (0.7-4.5); Lymphocytes % 4.6 % (10-50); Mean Corpuscular HGB Conc 32.6 g/dL (31.8-35.4); Mean Corpuscular Hemoglobin 31.4 pg (27.0-31.2); Mean Corpuscular Volume 96.5 fl (81-99); Mean Platelet Volume 8.5 fl (7.4-10.4); Monocytes # 0.5 K/mm3 (0.1-1.0); Monocytes % 3.5 % (1.7-9.3); Neutrophils # 12.9 K/mm3 (1.8-7.8); Neutrophils % 91.5 % (37.0-80.0); Platelet Count 253 K/mm3 (142-424); Red Cell Distribution Width 15.1 % (11.5-17.5); White Blood Count 14.1 K/mm3 (4.8-10.8)
[2021-05-05 07:19] LABS: MANUAL DIFFERENTIAL MANUAL DIFFERENTIAL (MANUAL DIFF)
[2021-05-05 07:21] LABS: Chloride 121 mmol/L (98-107)
[2021-05-05 07:22] LABS: Potassium 4.1 mmoL/L (3.5-5.1)
[2021-05-05 07:24] LABS: Blood Urea Nitrogen 29 mg/dl (7-17)
[2021-05-05 07:25] LABS: Anion Gap 12.1 mEq/L (5-15); Calcium 8.2 mg/dl (8.4-10.2); Carbon Dioxide 26 mmol/L (22.0-30.0); Creatinine Clearance Estimated 37 mL/min (50-200); Estimated Glomerular Filt Rate 120 ml/min (>60); GFR (African American) 145 ML/MIN (>60); Glucose 101 mg/dl (74-100)
[2021-05-05 07:45] LABS: Sodium 155 mmol/L (136-145)
--- NOTE | 2021-05-05 09:14 | XR_ITS ---
PROCEDURE: XR CHEST PORTABLE CLINICAL HISTORY: hypoxia COMPARISON: CR CXR CHEST(2 VIEWS-NOT PORTABLE) from 05/08/2015 CR XR CHEST 2V from 04/30/2021 CR XR CHEST PORTABLE from 05/03/2021 FINDINGS: Endotracheal tube has been inserted. The tip is in good position 6 cm above the sarai. Right IJ central venous line tip in the region the SVC. No evidence of pneumothorax. Nasogastric tube tip in the region of the body of the stomach. No change diffuse bilateral airspace disease consistent with bilateral pneumonia. No evidence of pneumothorax. There are trace bilateral effusions. IMPRESSION: Endotracheal tube nasogastric tube and right IJ central venous line all present and in good position. No change diffuse bilateral pneumonia with trace effusions Dictated by: Krystian Spencer MD 05/05/2021 11:03 Krystian Spencer MD in OV 05/05/2021 11:03
[2021-05-05 09:15] LABS: ABG Base Excess -0.4 mmol/L (-2.4-2.3); ABG HCO3 26.2 mmhg (22.0-26.0); ABG Oxygen Saturation 84 % (90-100); ABG PH 7.29 mmol/L (7.35-7.45); ABG TCO2 27.9 mmhg (23-27)
[2021-05-05 09:17] LABS: Allen's Test Patient Unable; Oxygen 50 %; Pressure Support 6; Vent Rate 18
[2021-05-05 09:18] LABS: Source Right Radial
[2021-05-05 09:20] LABS: ABG PCO2 55.4 mmhg (35.0-45.0); ABG PO2 49.5 mmhg (80-100)
[2021-05-05 09:35] LABS: Lymphocytes % 6 % (10-50); Monocytes % 5 % (2-9); Neutrophils % 89 % (42-76); Total Cells Counted 100
[2021-05-05 09:36] LABS: Nucleated Red Blood Cells 1; Platelet Estimate Normal; RBC Morphology Normal
--- NOTE | 2021-05-05 09:58 | HMH.ACPN2 ---
Internal Medicine - PN: Subj *Date: 05/05/21 *Time: 22:31 Interval history: 75 YOF lying in bed does not respond to verbal stimuli and will moan with tactile/painful stimuli. She is currently on BiPAP and we will intubate at this point. Exam Vital signs and Labs for Last 24 Hours: Temp Pulse Resp BP Pulse Ox 98.1 F 126 H 45 H 143/80 H 95 05/05/21 08:00 05/05/21 08:00 05/05/21 08:00 05/05/21 08:00 05/05/21 08:00 Laboratory Results - last 24 hr 05/04/21 08:05: Sodium 155 H*, Chloride 118 H, Anion Gap 10.2 05/05/21 06:50: WBC 14.1 H, RBC 4.10 L, Hgb 12.9, Hct 39.5, MCV 96.5, MCH 31.4 H, MCHC 32.6, RDW 15.1, Plt Count 253, MPV 8.5, Neut % (Auto) 91.5 H, Lymph % (Auto) 4.6 L, [place] % (Auto) 3.5, Eos % (Auto) 0.1, Baso % (Auto) 0.3, Neut # (Auto) 12.9 H, Lymph # (Auto) 0.6 L, [place] # (Auto) 0.5, Eos # (Auto) 0.0, Baso # (Auto) 0.0, Total Counted 100, Neutrophils % (Manual) 89 H, Lymphocytes % (Manual) 6 L, Monocytes % (Manual) 5, Nucleated RBCs 1, Platelet Estimate Normal, RBC Morphology Normal 05/05/21 06:50: Sodium 155 H*, Potassium 4.1 D, Chloride 121 H, Carbon Dioxide 26, Anion Gap 12.1, BUN 29 H D, Creatinine 0.50 L, Estimated Creat Clear 37, Estimated GFR 120, Est GFR ( Amer) 145 D, Glucose 101 H, Calcium 8.2 L 05/05/21 09:10: Specimen Source Right radial, O2 % 50, ABG pH 7.29 L, ABG pCO2 55.4 H, ABG pO2 49.5 L, ABG HCO3 26.2 H, ABG Total CO2 27.9 H, ABG O2 Saturation 84 L*, ABG Base Excess -0.4, Krystian Test Patient unable, Vent Rate 18 I & O for Last 24 hours: Intake & Output 05/02/21 05/03/21 05/04/21 05/05/21 23:59 23:59 23:59 23:59 Intake Total 2425 / 2425 2832 / 2832 2229 / 2229 1687 / 1687 Output Total 720 / 720 725 / 1725 1350 / 1600 450 / 450 Balance 1705 / 1705 2107 / 1107 879 / 629 1237 / 1237 Weight 113 lb 1.6 oz 113 lb 1 oz 112 lb 6.972 oz 110 lb - Constitutional severe distress, cachectic, chronically ill appearing - *Routine HEENT Exam Head: Present: normocephalic Eye: Present: EOMI ENT: Present: mucous membranes dry - *Routine Neck Exam Present: trachea midline. Absent: tracheal deviation - *Routine Respiratory Exam Present: accessory muscle use, crackles - *Routine Cardiovascular Exam Present: RRR - *Routine Abdominal Exam Present: soft, normoactive bowel sounds. Absent: firm - *Routine Extremities Exam Present: full ROM, pulses intact. Absent: cyanosis - *Routine Skin Exam Present: intact, dry - *Routine Neurological Exam Present: altered mental status. Absent: alert - Routine Psychiatric Exam Present: unable to assess Assessment and Plan (1) Pneumonia due to COVID-19 virus Status: Acute Category: Medical Code(s): U07.1 - COVID-19; J12.82 - Pneumonia due to coronavirus disease 2019 (2) Hepatic infarction Status: Acute Category: Medical Code(s): K76.3 - Infarction of liver (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 Category: Medical Code(s): J96.91 - Respiratory failure, unspecified with hypoxia (6) Respiratory failure requiring intubation Status: Acute Category: Medical Code(s): J96.90 - Respiratory failure, unspecified, unspecified whether with hypoxia or hypercapnia (7) Cachexia Status: Acute Category: Medical Code(s): R64 - Cachexia (8) Hypernatremia Status: Acute Category: Medical Code(s): E87.0 - Hyperosmolality and hypernatremia - Assessment and plan all Dx Assessment and Plan for all problems:: Roundede with Dr. Dominguez, all orders per Dr. Dominguez: 1. Anes paged for intubation
--- NOTE | 2021-05-05 10:44 | HMH.OPNOTE ---
Date of procedure: 05/05/21 Pre-op Diagnosis:: Respiratory failure, need for central venous access Post-op Diagnosis:: Same Procedure performed:: Placement of 7 [place] triple-lumen catheter, nontunneled, right internal jugular vein Surgeon:: Cedric Mojica MD Anesthesia: local Estimated blood loss (mL): 10 Operative findings:: Prominent right internal jugular vein Operative note:: Patient was positioned in Trendelenburg position. Right neck and upper chest were prepped and draped in the standard surgical fashion. Landmarks were identified. Local anesthetic was infiltrated superficially. 21-gauge needle was then used and there was good return of venous blood from the right internal jugular vein. 18-gauge catheter was then inserted with good return of venous blood. Guidewire was inserted. Small incision was made superficially at the insertion site. Subcutaneous tissues were dilated. 7 [place] triple-lumen catheter was threaded over the guidewire using Seldinger technique. It was secured to the skin at approximately the 10 cm ira with silk suture. All ports aspirated and flushed without difficulty. Clean dry sterile dressing was applied. Post procedure chest x-ray preliminarily reveals no evidence of any pneumothorax with good placement. Condition: critical Disposition: no change Complications:: None immediately apparent
--- NOTE | 2021-05-05 10:47 | P.PN_ITS ---
Subjective Narrative: Gastrografin study done yesterday revealed no evidence of any obvious leak or obstruction. Nasogastric tube removed. Patient had respiratory deterioration today requiring emergent intubation. Progress Note: A&P (1) Pneumonia due to COVID-19 virus Status: Acute (2) Hepatic infarction Status: Acute (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 (4) Duodenal ulcer with perforation Status: Acute Assessment and Plan for All Diagnoses:: Continue current care Exam Vital signs and Labs for Last 24 Hours: Temp Pulse Resp BP Pulse Ox 98.1 F 126 H 45 H 143/80 H 95 05/05/21 08:00 05/05/21 08:00 05/05/21 08:00 05/05/21 08:00 05/05/21 08:00 Laboratory Results - last 24 hr 05/05/21 06:50: WBC 14.1 H, RBC 4.10 L, Hgb 12.9, Hct 39.5, MCV 96.5, MCH 31.4 H , MCHC 32.6, RDW 15.1, Plt Count 253, MPV 8.5, Neut % (Auto) 91.5 H, Lymph % (Auto) 4.6 L, [place] % (Auto) 3.5, Eos % (Auto) 0.1, Baso % (Auto) 0.3, Neut # (Auto) 12.9 H, Lymph # (Auto) 0.6 L, [place] # (Auto) 0.5, Eos # (Auto) 0.0, Baso # (Auto) 0.0, Total Counted 100, Neutrophils % (Manual) 89 H, Lymphocytes % (Manual) 6 L, Monocytes % (Manual) 5, Nucleated RBCs 1, Platelet Estimate Normal, RBC Morphology Normal 05/05/21 06:50: Sodium 155 H*, Potassium 4.1 D, Chloride 121 H, Carbon Dioxide 26, Anion Gap 12.1, BUN 29 H D, Creatinine 0.50 L, Estimated Creat Clear 37, Estimated GFR 120, Est GFR ( Amer) 145 D, Glucose 101 H, Calcium 8.2 L 05/05/21 09:10: Specimen Source Right radial, O2 % 50, ABG pH 7.29 L, ABG pCO2 55.4 H, ABG pO2 49.5 L, ABG HCO3 26.2 H, ABG Total CO2 27.9 H, ABG O2 Saturation 84 L*, ABG Base Excess -0.4, Krystian Test Patient unable, Vent Rate 18 I & O for Last 24 hours: Intake & Output 05/02/21 05/03/21 05/04/21 05/05/21 11:59 11:59 11:59 11:59 Intake Total 2210 / 2210 3030 / 3030 2056 / 2056 3009 / 3009 Output Total 300 / 300 1445 / 1445 1000 / 1000 800 / 800 Balance 1910 / 1910 1585 / 1585 1057 / 1057 2209 / 2209 Weight 113 lb 1.6 oz 113 lb 1 oz 113 lb 12.8 oz 110 lb Narrative: Patient intubated, mechanically ventilated.
[2021-05-05 11:18] LABS: ABG Base Excess -2.3 mmol/L (-2.4-2.3); ABG HCO3 23.3 mmhg (22.0-26.0); ABG Oxygen Saturation 94 % (90-100); ABG PCO2 42.5 mmhg (35.0-45.0); ABG PH 7.36 mmol/L (7.35-7.45); ABG TCO2 24.6 mmhg (23-27)
[2021-05-05 11:21] LABS: Allen's Test acceptable; Oxygen 60 %; PEEP 8; Source Right Radial; Tidal Volume 400; Vent Rate 20
--- NOTE | 2021-05-05 11:51 | PC.NURSE ---
RESP CARE NOTE: Rate decreased to 20 bpm, and FIO2 decreased to 60% per Dr Rivera v/o.
--- NOTE | 2021-05-05 11:53 | PC.NURSE ---
0900 noted patient to be unresponsive. only slight opening of eyes and flailing of arms with stimuli. noted patient sats on 50% bipap to be about 84%. notified md and respiratory. abg obtained and md at bedside. instructed to intubate patient 0930 patient intubated via anesthesia. with a 7.5 et tube 21cm at teeth. after intubation noted patient bp to drop to 70s systolic. md ordered to run current fluids as a bolus and start levophed gtt to keep map 65-70 during this time emergently placed a 20 gauge iv in her l arm (l arm is a limb alert from previous masectomy.) 1000patient started on levophed that was gradually increased up to 10mcg/min to maintain desired map. patient also started to wake up so propofol started and increased to 25mcg/kg/min. placed central line to r jugular emergently at 1015. xray obtained after placement which confirmed good placement of et tube central line and ng tube. fentanyl started at 1100 at the starting rate of 25mcg/hr. 1125 noted patient to have bm. patient given partial bath and turned to l side. assessed skin on bottom noted some redness and a stage one on r buttock. purple in color. placed pressure dressing over area to help prevent any further breakdown. heels floated. mouth swabbed and suctioned and mouth moisturizer placed on patient Rectal temp: 99.1 r manual bp: 114/64 l manual unable to obtain because of prior masectomy current gtt settings at 1210: fentanyl: 25mcg/hr propofol:25mcg/kg/min levophed: 8mcg/min current vitals at 1210 Heart rate 73 bp 122/53 or sat 100% respiratory rate: 22
--- NOTE | 2021-05-05 12:26 | PC.WOUNDNOTE ---
redness noted; no open areas; optifoam applied
--- NOTE | 2021-05-05 12:45 | PC.NURSE ---
gradual weaning of levophed current rate 4mcg/min with a bp of 130/49 map of 76
--- NOTE | 2021-05-05 13:00 | PC.NURSE ---
RESP CARE NOTE: FIO2 increased to 70% FIO2 per Dr Rivera t/o.
--- NOTE | 2021-05-05 13:30 | DIET.NUTRFU ---
Reviewed chart, she had Gastrografin study done yesterday revealed no evidence of any obvious leak or obstruction, NG tube was discontinued for output. RD consulted for nutrition, she was intubated secondary to COVID. She will need 100% nutrition via enteral nutrition. CBW is 498kg with BMI 17, malnourished- provider notified. Recommend starting pulmocare at 20ml/hr with goal rate of 40ml/hr providing 1380kcal (28kcal/kg), 57gm protein (1.17gm/kg) and 722 free water plus 30ml/hr flush with total fluid of 1412ml/day (30ml/kg). Propofol is also providing additional 197kcal/day.
--- NOTE | 2021-05-05 13:33 | HMH.PULMPN ---
Internal Medicine - PN: Subj *Date: 05/05/21 *Time: 13:33 Interval history: Patient clinical status significantly worsened this morning patient became unresponsive continued intubation and mechanical ventilator support. Patient BiPAP settings remained relatively stable since this to 50%, and he was saturating 85% when she became unresponsive. Exam - Constitutional Constitutional:: Present: comfortable - HENMT Exam HENMT: Present: normocephalic - Eye Exam Eyes:: Present: normal appearance both eyes and related structures - Neck Exam Neck:: Present: normal visual inspection - Respiratory Exam Respiratory:: Present: respiratory distress, rales, rhonchi - Cardiovascular Exam Cardiac:: Present: S1, S2 - GI Exam GI:: Present: soft - Skin Exam Skin: Present: warm - Neurological Exam Neurological: Absent: alert, awake, normal cognition Intubated and sedated - Extremities Exam Extremities: Present: no cyanosis, no clubbing, no edema Assessment and Plan (1) Pneumonia due to COVID-19 virus Status: Acute Category: Medical Code(s): U07.1 - COVID-19; J12.82 - Pneumonia due to coronavirus disease 2019 (2) Hepatic infarction Status: Acute Category: Medical Code(s): K76.3 - Infarction of liver (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 - Assessment and plan all Dx Assessment and Plan for all problems:: #History of COVID-19 pneumonia: #Acute Hypoxic respiratory failure: #ILD: Current smoker greater than [id number] smoking history. History of rheumatoid arthritis, on methotrexate and hydroxychloroquine. yet to be vaccinated for COVID-19. Diagnosed with COVID-19 pneumonia around , did not receive any treatment, managed at home with worsening respiratory GI symptoms eventually presented to the ER found to have duodenal perforation status post repair. Subsequently patient also found to be in hypoxic respiratory failure needing new oxygen requirements and pulmonary was called for further management. Patient chest X bilateral diffuse worsening infiltrates along with interstitial markings. No prior imaging available for review. CRP was significantly elevated at 207 on admission. Patient significantly supplementation eventually escalated by evaluating 100% FiO2 that significantly improved to 50% after diuresis. However this morning patient had an acute clinical deterioration where she became unresponsive with saturation maintained 85% dementia needing intubation and mechanical ventilatory support. She has been receiving Zosyn since admission. Her nasal MRSA PCR resulted negative. Lower lung lopez on CT abdomen showed diffuse GGO airspace disease with increased interstitial markings. The possibility of underlying interstitial lung disease cannot be completely ruled out, need to be followed with PFT & HRCT in the future. chest x-ray showed bilateral infiltrates along with hyperexpanded lungs. Plan: -Intubated and sedated. Continue propofol and fentanyl for sedation. Will wean sedation to reevaluate patient's mentation. We will follow with LFT, INR and serum ammonia. Patient continued to have poor mentation will consider CT head WO contrast Continue current ventilator settings, PEEP of 8, increase FiO2 to 70%, continue tidal volume at 400 and rate of 20. Continue Zosyn awaiting tracheal aspirate. Nasal MRSA PCR negative. DuoNebs every 6 hours scheduled along with budesonide every 12 scheduled. Will initiate methylprednisolone 125 mg every 12 hours. Abdomen soft nondistended. Midline scar appears healthy. Surgery following. Hemodynamically unstable post intubation. Currently on 4 mcg of Levophed with map goal of 65-70. Follow with soren
[2021-05-05 14:23] LABS: Chloride 121 mmol/L (98-107); Potassium 3.4 mmoL/L (3.5-5.1)
--- NOTE | 2021-05-05 14:23 | HMH.PTWOUND ---
Rehab Inpt Wound Evaluation Rehab IP Wound Evaluation Start: 05/05/21 12:25 Freq: ONCE Status: Active Protocol: Document 05/05/21 14:19 RAMO (Rec: 05/05/21 14:23 [email or web address] [id number]) Rehab PT Wound Assessment Patient Status Premedicated Prior to Dressing Change No Subjective Subjective Pt intubated no erbalization - Pt has low wil score qualifying for wound consult - no open wounds at this time - area of redness, possible DTI on R buttocks Wound midline abdomen Wound Type Pressure Ulcer Wound Staging Stage I Query Text:Stage I - Unbroken, red skin, no blanching. Stage II - Skin broken, superficial skin loss involving epidermis alone or also dermis. Partial loss of skin layers. Stage III - Pressure area involves epidermis, dermis and subcutaneous tissue, full thickness skin loss. Stage IV - Pressure area involves epidermis, subcutaneous tissue, bone and other supportive tissue. Full thickness skin loss with extensive destruction of underlying tissue and structures. Wound Length (cm) 3.0 Wound Width (cm) 3.0 Wound Margins Description Indistinct Wound Drainage Description None Drainage Amount None Primary Dressing Absorbant Pad Comment optifoam pad Plan/Recommendation Comment No open wound at this time - pressure relief, shear protection and moisture control required. optifoam pad for added protection added for cushioning. Nsg to continue to pressure relieve/ turn Q2H as per protocol. Wound care team to continue to be available for consult Eval Complexity Eval Charge Codes 07603 - Low Complexity G-codes PT Current Status Mobility PT Current Status Modifier CN-At least 100% impaired, limited or restricted PT Goal Status Mobility PT Goal Status Modifer CN-At least 100% impaired, limited or restricted PHYSICIAN CERTIFICATION: I certify the specified therapy services for Kayleigh Nayak are required, authorized, and reviewed every 30 days.
[2021-05-05 14:25] LABS: Alanine Aminotransferase 26 U/L (12-78); Alkaline Phosphatase 68 U/L (38-126); Ammonia 15 umol/L (9-30); Anion Gap 7.4 mEq/L (5-15); Aspartate Amino Transferase 49 U/L (14-36); Bilirubin,Total 0.6 mg/dl (0.2-1.3); Blood Urea Nitrogen 31 mg/dl (7-17); Carbon Dioxide 28 mmol/L (22.0-30.0); Creatinine Clearance Estimated 37 mL/min (50-200); Estimated Glomerular Filt Rate 81 ml/min (>60); GFR (African American) 98 ML/MIN (>60)
[2021-05-05 14:26] LABS: Albumin Level 2.3 g/dl (3.5-5.0); Albumin/Globulin Ratio 0.9 (1.1-1.8); Calcium 7.7 mg/dl (8.4-10.2); Globulin 2.5 g/dL (1.3-3.2); Glucose 105 mg/dl (74-100); Total Protein,Serum 4.8 g/dl (6.3-8.2)
--- NOTE | 2021-05-05 14:28 | PC.NURSE ---
per dr rodriguez propofol turned off and fentanyl decreased to 10mcg/hr
[2021-05-05 14:30] LABS: INR 1.22 (0.9-1.1); Prothrombin Time 13.6 seconds (10.1-12.5)
[2021-05-05 14:33] LABS: Sodium 153 mmol/L (136-145)
--- NOTE | 2021-05-05 14:40 | PC.NURSE ---
name and birthdate verified with lab about sodium of 153. relayed this to john kirk at dr hassan office.
--- NOTE | 2021-05-05 14:54 | PC.NURSE ---
levophed gtt turned off
--- NOTE | 2021-05-05 14:55 | PC.NURSE ---
patient family has been updated twice this shift on patient status
--- NOTE | 2021-05-05 15:26 | PC.NURSE ---
report given to sandra kirk. had stated to turn sedation off and see if she will wake up.
[2021-05-06] VITALS (31 sets, daily range): BP systolic 94–164; BP diastolic 36–87; PULSE 62–89; RESP 20–35; TEMP 36.5–37.1; O2SAT 92–100; BMI 16.9
--- NOTE | 2021-05-06 06:00 | XR_ITS ---
PROCEDURE INFORMATION: Exam: XR Chest Exam date and time: 05/06/2021 6:00 AM Age: 75 years old Clinical indication: Device placement; Ett placement (vent status); Additional info: Ett and ng placement TECHNIQUE: Imaging protocol: XR of the chest. Views: 1 view. COMPARISON: CR XR CHEST PORTABLE 05/05/2021 10:25 AM FINDINGS: Tubes, catheters and devices: Endotracheal tube remains in place with the tip above the sarai. Nasogastric tube remains in place. The jugular catheter remains in place. Lungs: There continues to be airspace disease throughout both lungs, unchanged. Pleural spaces: Unremarkable. No pleural effusion. No pneumothorax. Heart/Mediastinum: Unremarkable. No cardiomegaly. Bones/joints: Unremarkable. IMPRESSION: Stable chest.
[2021-05-06 07:16] LABS: Basophils % 0.4 % (0.1-2.0); Hematocrit 34.1 % (37.0-47.0); Lymphocytes # 0.5 K/mm3 (0.7-4.5); Lymphocytes % 4.6 % (10-50); Mean Corpuscular HGB Conc 32.8 g/dL (31.8-35.4); Mean Corpuscular Volume 94.5 fl (81-99); Mean Platelet Volume 10.1 fl (7.4-10.4); Monocytes # 0.2 K/mm3 (0.1-1.0); Monocytes % 2.4 % (1.7-9.3); Neutrophils # 8.8 K/mm3 (1.8-7.8); Neutrophils % 92.6 % (37.0-80.0); Platelet Count 186 K/mm3 (142-424); Red Blood Count 3.61 M/mm3 (4.20-5.40); Red Cell Distribution Width 15.4 % (11.5-17.5); White Blood Count 9.6 K/mm3 (4.8-10.8)
[2021-05-06 07:22] LABS: Hemoglobin 11.2 g/dL (12.2-16.2); MANUAL DIFFERENTIAL MANUAL DIFFERENTIAL (MANUAL DIFF)
[2021-05-06 07:28] LABS: Chloride 116 mmol/L (98-107)
[2021-05-06 07:32] LABS: Blood Urea Nitrogen 30 mg/dl (7-17); Carbon Dioxide 35 mmol/L (22.0-30.0); Creatinine Clearance Estimated 36 mL/min (50-200); Estimated Glomerular Filt Rate 97 ml/min (>60); GFR (African American) 117 ML/MIN (>60); Glucose 209 mg/dl (74-100)
[2021-05-06 07:42] LABS: ABG HCO3 29.8 mmhg (22.0-26.0); ABG Oxygen Saturation 91 % (90-100); ABG PCO2 42.8 mmhg (35.0-45.0); ABG PH 7.46 mmol/L (7.35-7.45); ABG PO2 55.4 mmhg (80-100); ABG TCO2 31.1 mmhg (23-27)
[2021-05-06 07:50] LABS: Sodium 152 mmol/L (136-145)
[2021-05-06 07:51] LABS: Oxygen 50 %; PEEP 8; Tidal Volume 400; Vent Rate 20
[2021-05-06 07:52] LABS: Allen's Test Patient Unable; Source Right Radial
[2021-05-06 08:20] LABS: Lymphocytes % 4 % (10-50); Monocytes % 3 % (2-9); Neutrophils % 93 % (42-76); Total Cells Counted 100
--- NOTE | 2021-05-06 08:20 | HMH.GSPN ---
Subjective Narrative: The patient has had a significant decline with regard to her respiratory status over the last 48 hours. She is currently intubated and is being managed by the primary service and the pulmonology service. Per nursing staff, her incision continues to look fine . Progress Note: A&P (1) Pneumonia due to COVID-19 virus Status: Acute (2) Hepatic infarction Status: Acute (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 (4) Duodenal ulcer with perforation Status: Acute Assessment and plan: No definitive evidence of leak per recent Gastrografin study. May utilize nasogastric tube for at least trophic tube feeds if deemed appropriate per primary service and pulmonology. (5) Respiratory failure with hypoxia Status: Acute (6) Respiratory failure requiring intubation Status: Acute (7) Cachexia Status: Acute (8) Hypernatremia Status: Acute Exam Vital signs and Labs for Last 24 Hours: Temp Pulse Resp BP Pulse Ox 97.7 F 75 20 94/36 L 100 05/06/21 04:00 05/06/21 07:00 05/06/21 07:00 05/06/21 07:00 05/06/21 07:00 Laboratory Results - last 24 hr 05/05/21 06:50: Total Counted 100, Neutrophils % (Manual) 89 H, Lymphocytes % (Manual) 6 L, Monocytes % (Manual) 5, Nucleated RBCs 1, Platelet Estimate Normal, RBC Morphology Normal 05/05/21 09:10: Specimen Source Right radial, O2 % 50, ABG pH 7.29 L, ABG pCO2 55.4 H, ABG pO2 49.5 L, ABG HCO3 26.2 H, ABG Total CO2 27.9 H, ABG O2 Saturation 84 L*, ABG Base Excess -0.4, Krystian Test Patient unable, Vent Rate 18 05/05/21 10:40: Specimen Source Right radial, O2 % 60, ABG pH 7.36, ABG pCO2 42.5, ABG pO2 68.0 L, ABG HCO3 23.3, ABG Total CO2 24.6, ABG O2 Saturation 94, ABG Base Excess -2.3, Krystian Test acceptable, Vent Rate 20, Tidal Volume 400, PEEP 8 05/05/21 13:55: Sodium 153 H*, Potassium 3.4 L, Chloride 121 H, Carbon Dioxide 28, Anion Gap 7.4, BUN 31 H, Creatinine 0.70 D, Estimated Creat Clear 37, Estimated GFR 81, Est GFR ( Amer) 98 D, Glucose 105 H, Calcium 7.7 L, Total Bilirubin 0.6, AST 49 H, ALT 26, Alkaline Phosphatase 68, Total Protein 4.8 L D, Albumin 2.3 L, Globulin 2.5, Albumin/Globulin Ratio 0.9 L 05/05/21 13:55: Ammonia 15 05/05/21 13:55: PT 13.6 H, INR 1.22 H 05/06/21 05:50: WBC 9.6 D, RBC 3.61 L, Hgb 11.2 L D, Hct 34.1 L, MCV 94.5, MCH 31.0, MCHC 32.8, RDW 15.4, Plt Count 186 D, MPV 10.1, Neut % (Auto) 92.6 H, Lymph % (Auto) 4.6 L, [place] % (Auto) 2.4, Eos % (Auto) 0.0 L, Baso % (Auto) 0.4, Neut # (Auto) 8.8 H, Lymph # (Auto) 0.5 L, [place] # (Auto) 0.2, Eos # (Auto) 0.0, Baso # (Auto) 0.0 05/06/21 05:50: Sodium 152 H*, Potassium 3.0 L, Chloride 116 H, Carbon Dioxide 35 H, Anion Gap 4.0 L, BUN 30 H, Creatinine 0.60, Estimated Creat Clear 36, Estimated GFR 97, Est GFR ( Amer) 117, Glucose 209 H D, Calcium 8.0 L 05/06/21 06:00: Specimen Source Right radial, O2 % 50, ABG pH 7.46 H, ABG pCO2 42.8, ABG pO2 55.4 L, ABG HCO3 29.8 H, ABG Total CO2 31.1 H, ABG O2 Saturation 91, ABG Base Excess 6.0 H, Krystian Test Patient unable, Vent Rate 20, Tidal Volume 400, PEEP 8 I & O for Last 24 hours: Intake & Output 05/03/21 05/04/21 05/05/21 05/06/21 11:59 11:59 11:59 11:59 Intake Total 3030 / 3030 2056 / 2056 3809 / 3809 1331 / 1331 Output Total 1445 / 1445 1000 / 1000 1400 / 1400 705 / 705 Balance 1585 / 1585 1057 / 1057 2409 / 2409 626 / 626 Weight 113 lb 1 oz 113 lb 12.8 oz 110 lb 105 lb 9.623 oz Microbiology Reports for the Last 24 Hours: Microbiology 05/05/21 09:45 Sputum - Endotracheal Tube Aspirate Gram Stain - Final 04/30/21 11:09 Blood Blood Culture - Final NO GROWTH AFTER 5 DAYS 04/30/21 11:09 Blood Blood Culture - Final NO GROWTH AFTER 5 DAYS - Constitutional no acute distress - *Routine Respiratory Exam Present: patient mechanically ventilated - *Routine Cardiovascular Exam Absent: tachycardia
[2021-05-06 08:21] LABS: Anisocytosis 1+; Platelet Estimate Normal; Poikilocytosis 1+
--- NOTE | 2021-05-06 09:42 | HMH.ACPN2 ---
Internal Medicine - PN: Subj *Date: 05/06/21 *Time: 09:42 Interval history: intubated, Exam Vital signs and Labs for Last 24 Hours: Temp Pulse Resp BP Pulse Ox 97.7 F 75 20 94/36 L 100 05/06/21 04:00 05/06/21 07:00 05/06/21 07:00 05/06/21 07:00 05/06/21 07:00 Laboratory Results - last 24 hr 05/05/21 10:40: Specimen Source Right radial, O2 % 60, ABG pH 7.36, ABG pCO2 42.5, ABG pO2 68.0 L, ABG HCO3 23.3, ABG Total CO2 24.6, ABG O2 Saturation 94, ABG Base Excess -2.3, Krystian Test acceptable, Vent Rate 20, Tidal Volume 400, PEEP 8 05/05/21 13:55: Sodium 153 H*, Potassium 3.4 L, Chloride 121 H, Carbon Dioxide 28, Anion Gap 7.4, BUN 31 H, Creatinine 0.70 D, Estimated Creat Clear 37, Estimated GFR 81, Est GFR ( Amer) 98 D, Glucose 105 H, Calcium 7.7 L, Total Bilirubin 0.6, AST 49 H, ALT 26, Alkaline Phosphatase 68, Total Protein 4.8 L D, Albumin 2.3 L, Globulin 2.5, Albumin/Globulin Ratio 0.9 L 05/05/21 13:55: Ammonia 15 05/05/21 13:55: PT 13.6 H, INR 1.22 H 05/06/21 05:50: WBC 9.6 D, RBC 3.61 L, Hgb 11.2 L D, Hct 34.1 L, MCV 94.5, MCH 31.0, MCHC 32.8, RDW 15.4, Plt Count 186 D, MPV 10.1, Neut % (Auto) 92.6 H, Lymph % (Auto) 4.6 L, [place] % (Auto) 2.4, Eos % (Auto) 0.0 L, Baso % (Auto) 0.4, Neut # (Auto) 8.8 H, Lymph # (Auto) 0.5 L, [place] # (Auto) 0.2, Eos # (Auto) 0.0, Baso # (Auto) 0.0, Total Counted 100, Neutrophils % (Manual) 93 H, Lymphocytes % (Manual) 4 L, Monocytes % (Manual) 3, Platelet Estimate Normal, RBC Morphology Not Reportable, Poikilocytosis 1+, Anisocytosis 1+ 05/06/21 05:50: Sodium 152 H*, Potassium 3.0 L, Chloride 116 H, Carbon Dioxide 35 H, Anion Gap 4.0 L, BUN 30 H, Creatinine 0.60, Estimated Creat Clear 36, Estimated GFR 97, Est GFR ( Amer) 117, Glucose 209 H D, Calcium 8.0 L 05/06/21 06:00: Specimen Source Right radial, O2 % 50, ABG pH 7.46 H, ABG pCO2 42.8, ABG pO2 55.4 L, ABG HCO3 29.8 H, ABG Total CO2 31.1 H, ABG O2 Saturation 91, ABG Base Excess 6.0 H, Krystian Test Patient unable, Vent Rate 20, Tidal Volume 400, PEEP 8 I & O for Last 24 hours: Intake & Output 05/03/21 05/04/21 05/05/21 05/06/21 11:59 11:59 11:59 11:59 Intake Total 3030 / 3030 2057 / 2057 3809 / 3809 1331 / 1331 Output Total 1445 / 1445 1000 / 1000 1400 / 1400 705 / 705 Balance 1585 / 1585 1057 / 1057 2409 / 2409 626 / 626 Weight 113 lb 1 oz 113 lb 12.8 oz 110 lb 105 lb 9.623 oz Microbiology Reports for the Last 24 Hours: Microbiology 05/05/21 09:45 Sputum - Endotracheal Tube Aspirate Gram Stain - Final 04/30/21 11:09 Blood Blood Culture - Final NO GROWTH AFTER 5 DAYS 04/30/21 11:09 Blood Blood Culture - Final NO GROWTH AFTER 5 DAYS - Constitutional no acute distress - *Routine HEENT Exam Head: Present: normocephalic Eye: Present: other ENT: Present: mucous membranes moist Comments: ng tube in place - *Routine Neck Exam Present: supple. Absent: lymphadenopathy - *Routine Respiratory Exam Present: patient mechanically ventilated - *Routine Cardiovascular Exam Present: RRR - *Routine Abdominal Exam Present: soft, normoactive bowel sounds. Absent: tenderness - *Routine Exam Comments: cohen draining at bedside - *Routine Extremities Exam Absent: cyanosis, clubbing, edema - *Routine Skin Exam Present: warm. 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
--- NOTE | 2021-05-06 11:53 | HMH.PULMPN ---
Internal Medicine - PN: Subj *Date: 05/06/21 *Time: 11:53 Interval history: Patient respiratory status working recommends continue to improve post intubation. Exam - Constitutional Constitutional:: Present: no acute distress, comfortable - HENMT Exam HENMT: Present: normocephalic - Eye Exam Eyes:: Present: normal appearance both eyes and related structures - Neck Exam Neck:: Present: normal visual inspection - Respiratory Exam Respiratory:: Absent: respiratory distress, rales, rhonchi, wheezing - Cardiovascular Exam Cardiac:: Present: S1, S2 - GI Exam GI:: Present: soft. Absent: distended - Skin Exam Skin: Present: warm, no rash - Neurological Exam Neurological: Absent: alert, awake, normal cognition - Extremities Exam Extremities: Present: no cyanosis, no clubbing, no edema Assessment and Plan (1) Pneumonia due to COVID-19 virus Status: Acute Category: Medical Code(s): U07.1 - COVID-19; J12.82 - Pneumonia due to coronavirus disease 2018 (2) Hepatic infarction Status: Acute Category: Medical Code(s): K76.3 - Infarction of liver (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 Category: Medical Code(s): J96.91 - Respiratory failure, unspecified with hypoxia (6) Respiratory failure requiring intubation Status: Acute Category: Medical Code(s): J96.90 - Respiratory failure, unspecified, unspecified whether with hypoxia or hypercapnia (7) Cachexia Status: Acute Category: Medical Code(s): R64 - Cachexia (8) Hypernatremia Status: Acute Category: Medical Code(s): E87.0 - Hyperosmolality and hypernatremia - Assessment and plan all Dx Assessment and Plan for all problems:: #History of COVID-19 pneumonia: #Acute Hypoxic respiratory failure: #ILD: Current smoker greater than [id number] smoking history. History of rheumatoid arthritis, on methotrexate and hydroxychloroquine. yet to be vaccinated for COVID-19. Diagnosed with COVID-19 pneumonia around , did not receive any treatment, managed at home with worsening respiratory GI symptoms eventually presented to the ER found to have duodenal perforation status post repair. Subsequently patient also found to be in hypoxic respiratory failure needing new oxygen requirements and pulmonary was called for further management. Patient chest X bilateral diffuse worsening infiltrates along with interstitial markings. No prior imaging available for review. CRP was significantly elevated at 207 on admission. Patient significantly supplementation eventually escalated by evaluating 100% FiO2 that significantly improved to 50% after diuresis. However this morning patient had an acute clinical deterioration where she became unresponsive with saturation maintained 85% dementia needing intubation and mechanical ventilatory support. She has been receiving Zosyn since admission. Her nasal MRSA PCR resulted negative. Lower lung lopez on CT abdomen showed diffuse GGO airspace disease with increased interstitial markings. The possibility of underlying interstitial lung disease cannot be completely ruled out, need to be followed with PFT & HRCT in the future. chest x-ray showed bilateral infiltrates along with hyperexpanded lungs. Plan: -Intubated and sedated. Continue propofol and fentanyl for sedation. LFT INR and serum ammonia WNL Oxygen requirements continued to improve. PEEP weaned to 5 and FiO2 to 40%. Saturating 98% on the monitor. Decreased minute ventilation. ABG and chest x-ray reviewed, ABG showed respiratory alkalosis and chest x-ray relatively stable with respect to infiltrates the ET tube in place Continue
--- NOTE | 2021-05-06 14:20 | PC.NURSE ---
RESP CARE NOTE: Bronchoscopy performed with Dr Rivera at bedside. Specimens obtained and ET tube advanced to 23 at the lip per v/o Dr Rivera.
--- NOTE | 2021-05-06 17:11 | HMH.BRONCH ---
- Procedure: Date: 05/06/21 Patient Date of :: 1945 Procedure Performed:: Bronchoscopy with bronchoalveolar lavage Indications:: Nonresolving pneumonia Performing Provider:: Rosalie Rivera MD Referring Provider:: Dr. Dominguez Sedation:: Patient received 2 mg of Versed and 25 mcg of fentanyl for this procedure. Procedure:: Bronchoscopy with airway examination and bronchoalveolar lavage: A clean diagnostic bronchoscopy was advanced to the ET tube and airways were examined up to 6 segmental bronchi. Copious amount of thick mucoid secretions were noted in bilateral lower lobes that were suctioned. No mucous plugging or old blood clots or evidence of bleeding noted. Bronchoalveolar lavage was performed the right middle lobe medial segment a total of 60 cc of normal saline was instilled with a return of 40 cc back, mucoid nonbloody. Specimen was sent for BAL cell count differential, bacterial fungal AFB stain culture along with cytopathology. Patient tolerated the procedure well with no complications. Findings:: Please see the procedure note Recommendations:: Please see the procedure note and progress notes from today Complications:: None Estimated blood obtained (mL): 0
[2021-05-07] VITALS (30 sets, daily range): BP systolic 93–180; BP diastolic 41–80; PULSE 59–81; RESP 16–38; TEMP 36.4–37; O2SAT 35–100; BMI 16.9
--- NOTE | 2021-05-07 06:48 | P.PN_ITS ---
Subjective Narrative: Per nursing, the patient showed some improvement status post bronchoscopy yesterday Progress Note: A&P (1) Pneumonia due to COVID-19 virus Status: Acute (2) Hepatic infarction Status: Acute (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 (4) Duodenal ulcer with perforation Status: Acute Assessment and plan: Remove one half of cassidy (5) Respiratory failure with hypoxia Status: Acute (6) Respiratory failure requiring intubation Status: Acute (7) Cachexia Status: Acute (8) Hypernatremia Status: Acute Exam Vital signs and Labs for Last 24 Hours: Temp Pulse Resp BP Pulse Ox 98.6 F 72 19 150/53 H 100 05/07/21 00:00 05/07/21 06:45 05/07/21 06:00 05/07/21 06:00 05/07/21 06:45 Laboratory Results - last 24 hr 05/06/21 05:50: WBC 9.6 D, RBC 3.61 L, Hgb 11.2 L D, Hct 34.1 L, MCV 94.5, MCH 31.0, MCHC 32.8, RDW 15.4, Plt Count 186 D, MPV 10.1, Neut % (Auto) 92.6 H, Lymph % (Auto) 4.6 L, [place] % (Auto) 2.4, Eos % (Auto) 0.0 L, Baso % (Auto) 0.4, Neut # (Auto) 8.8 H, Lymph # (Auto) 0.5 L, [place] # (Auto) 0.2, Eos # (Auto) 0.0, Baso # (Auto) 0.0, Total Counted 100, Neutrophils % (Manual) 93 H, Lymphocytes % (Manual) 4 L, Monocytes % (Manual) 3, Platelet Estimate Normal, RBC Morphology Not Reportable, Poikilocytosis 1+, Anisocytosis 1+ 05/06/21 05:50: Sodium 152 H*, Potassium 3.0 L, Chloride 116 H, Carbon Dioxide 35 H, Anion Gap 4.0 L, BUN 30 H, Creatinine 0.60, Estimated Creat Clear 36, Estimated GFR 97, Est GFR ( Amer) 117, Glucose 209 H D, Calcium 8.0 L 05/06/21 06:00: Specimen Source Right radial, O2 % 50, ABG pH 7.46 H, ABG pCO2 42.8, ABG pO2 55.4 L, ABG HCO3 29.8 H, ABG Total CO2 31.1 H, ABG O2 Saturation 91, ABG Base Excess 6.0 H, Krystian Test Patient unable, Vent Rate 20, Tidal Volume 400, PEEP 8 I & O for Last 24 hours: Intake & Output 05/04/21 05/05/21 05/06/21 05/07/21 11:59 11:59 11:59 11:59 Intake Total 2057 / 2057 3809 / 3809 1331 / 1331 1845 / 1845 Output Total 1000 / 1000 1400 / 1400 705 / 705 1305 / 1305 Balance 1057 / 1057 2409 / 2409 626 / 626 540 / 540 Weight 113 lb 12.8 oz 110 lb 105 lb 9.623 oz 105 lb 9.623 oz Microbiology Reports for the Last 24 Hours: Microbiology 05/06/21 14:00 Bronchial Washings - Right Middle Lobe Gram Stain - Final - *Routine Cardiovascular Exam Absent: tachycardia - *Routine Abdominal Exam Comments: Incision remains unchanged as confirmed per nursing
[2021-05-07 06:58] LABS: Basophils # 0.1 K/mm3 (0-0.2); Basophils % 0.3 % (0.1-2.0); Eosinophils % 0.1 % (0.1-12.0); Hematocrit 35.7 % (37.0-47.0); Hemoglobin 11.7 g/dL (12.2-16.2); Lymphocytes # 0.7 K/mm3 (0.7-4.5); Lymphocytes % 4.7 % (10-50); Mean Corpuscular HGB Conc 32.9 g/dL (31.8-35.4); Mean Corpuscular Hemoglobin 30.9 pg (27.0-31.2); Mean Platelet Volume 10.6 fl (7.4-10.4); Monocytes # 0.3 K/mm3 (0.1-1.0); Monocytes % 2.1 % (1.7-9.3); Neutrophils # 14.8 K/mm3 (1.8-7.8); Neutrophils % 92.9 % (37.0-80.0); Platelet Count 151 K/mm3 (142-424); Red Blood Count 3.79 M/mm3 (4.20-5.40); Red Cell Distribution Width 15.7 % (11.5-17.5)
[2021-05-07 07:03] LABS: Chloride 114 mmol/L (98-107); Potassium 3.1 mmoL/L (3.5-5.1); Sodium 149 mmol/L (136-145)
[2021-05-07 07:06] LABS: Anion Gap 6.1 mEq/L (5-15); Blood Urea Nitrogen 28 mg/dl (7-17); Carbon Dioxide 32 mmol/L (22.0-30.0); Creatinine Clearance Estimated 36 mL/min (50-200); Estimated Glomerular Filt Rate 155 ml/min (>60); GFR (African American) 187 ML/MIN (>60)
[2021-05-07 07:07] LABS: Glucose 150 mg/dl (74-100)
[2021-05-07 07:15] LABS: C-Reactive Protein 38.8 mg/L (0-4)
[2021-05-07 07:19] LABS: MANUAL DIFFERENTIAL MANUAL DIFFERENTIAL (MANUAL DIFF)
[2021-05-07 08:24] LABS: Hypochromasia 1+; Lymphocytes % 4 % (10-50); Macrocytosis 1+; Monocytes % 3 % (2-9); Neutrophils % 91 % (42-76); Nucleated Red Blood Cells 1; Platelet Estimate Normal; Total Cells Counted 100
[2021-05-07 08:44] LABS: ABG Base Excess 3.7 mmol/L (-2.4-2.3); ABG HCO3 26.7 mmhg (22.0-26.0); ABG Oxygen Saturation 79 % (90-100); ABG PCO2 34.4 mmhg (35.0-45.0); ABG PH 7.51 mmol/L (7.35-7.45); ABG TCO2 27.8 mmhg (23-27)
[2021-05-07 09:03] LABS: Allen's Test ACCEPTABLE; Oxygen 35 %; PEEP 5; Tidal Volume 400; Vent Rate 18
[2021-05-07 09:04] LABS: ABG PO2 38.9 mmhg (80-100); Lactate Arterial 1.8 mmol/L (0.4-2.0); Source Left Radial
--- NOTE | 2021-05-07 09:15 | PC.NURSE ---
RESP CARE NOTE: Per Dr Rivera, decrease Vt to 380, Rate to 16, and FIO2 to 50% to keep SPO2 above 90%. Begin SBT trial if SPO2 remains above 90%. 0915 05/07/2021
--- NOTE | 2021-05-07 09:20 | DIET.NUTRFU ---
Propofol has been discontinued at this time. Pt with bronchoscopy completed yesterday. TF recommendations are in place. Will continue to monitor.
--- NOTE | 2021-05-07 09:30 | XR_ITS ---
PROCEDURE: XR CHEST PORTABLE CLINICAL HISTORY: PNM COMPARISON: CR XR CHEST PORTABLE from 05/03/2021 CR XR CHEST PORTABLE from 05/05/2021 CR XR CHEST PORTABLE from 05/06/2021 FINDINGS: 9:44 a.m.. Endotracheal tube, nasogastric tube, and right IJ CVL remain in good position. No change diffuse bilateral interstitial and alveolar disease. Suspect small bilateral pleural effusions. No evidence of pneumothorax. IMPRESSION: Overall no change. Tubes and lines are in good position. Dictated by: Krystian Spencer MD 05/07/2021 10:01 Krystian Spencer MD in OV 05/07/2021 10:01
--- NOTE | 2021-05-07 09:41 | HMH.ACPN2 ---
Internal Medicine - PN: Subj *Date: 05/07/21 *Time: 09:10 Interval history: pt laying in bed on vent settings per chart Exam Vital signs and Labs for Last 24 Hours: Temp Pulse Resp BP Pulse Ox 97.6 F 66 22 144/52 H 100 05/07/21 08:00 05/07/21 08:00 05/07/21 08:00 05/07/21 08:00 05/07/21 08:00 Laboratory Results - last 24 hr 05/07/21 05:50: WBC 16.0 H D, RBC 3.79 L, Hgb 11.7 L, Hct 35.7 L, MCV 94.0, MCH 30.9, MCHC 32.9, RDW 15.7, Plt Count 151, MPV 10.6 H, Neut % (Auto) 92.9 H, Lymph % (Auto) 4.7 L, [place] % (Auto) 2.1, Eos % (Auto) 0.1, Baso % (Auto) 0.3, Neut # (Auto) 14.8 H, Lymph # (Auto) 0.7, [place] # (Auto) 0.3, Eos # (Auto) 0.0, Baso # (Auto) 0.1, Total Counted 100, Neutrophils % (Manual) 91 H, Lymphocytes % (Manual) 4 L, Monocytes % (Manual) 3, Blast Cells % 2.0, Nucleated RBCs 1, Platelet Estimate Normal, Hypochromasia 1+, Macrocytosis 1+ 05/07/21 05:50: Sodium 149 H, Potassium 3.1 L, Chloride 114 H, Carbon Dioxide 32 H, Anion Gap 6.1, BUN 28 H, Creatinine 0.40 L D, Estimated Creat Clear 36, Estimated GFR 155, Est GFR ( Amer) 187 D, Glucose 150 H D, Calcium 8.0 L, C-Reactive Protein 38.8 H 05/07/21 07:22: Specimen Source Left radial, O2 % 35, ABG pH 7.51 H, ABG pCO2 34.4 L, ABG pO2 38.9 L, ABG HCO3 26.7 H, ABG Total CO2 27.8 H, ABG O2 Saturation 79 L*, ABG Base Excess 3.7 H, Krystian Test Acceptable, ABG Lactate 1.8, Vent Rate 18, Tidal Volume 400, PEEP 5 I & O for Last 24 hours: Intake & Output 05/04/21 05/05/21 05/06/21 05/07/21 11:59 11:59 11:59 11:59 Intake Total 2057 / 2057 3809 / 3809 1331 / 1331 1845 / 1845 Output Total 1000 / 1000 1400 / 1400 705 / 705 1375 / 1375 Balance 1057 / 1057 2409 / 2409 626 / 626 470 / 470 Weight 113 lb 12.8 oz 110 lb 105 lb 9.623 oz 105 lb 9.623 oz Microbiology Reports for the Last 24 Hours: Microbiology 05/06/21 14:00 Bronchial Washings - Right Middle Lobe Gram Stain - Final - Constitutional no acute distress, thin, chronically ill appearing - *Routine HEENT Exam Head: Present: normocephalic Eye: Present: PERRL ENT: Present: mucous membranes moist - *Routine Neck Exam Present: supple. Absent: lymphadenopathy - *Routine Respiratory Exam Present: decreased breath sounds, rhonchi - *Routine Cardiovascular Exam Present: RRR - *Routine Abdominal Exam Present: soft, normoactive bowel sounds. Absent: tenderness - *Routine Exam Comments: cohen in place - *Routine Extremities Exam Absent: cyanosis, clubbing, edema - *Routine Skin Exam Present: warm. Absent: rash Comments: midline incision cassidy in place no redness Assessment and Plan (1) Pneumonia due to COVID-19 virus Status: Acute Category: Medical Code(s): U07.1 - COVID-19; J12.82 - Pneumonia due to coronavirus disease 2019 (2) Hepatic infarction Status: Acute Category: Medical Code(s): K76.3 - Infarction of liver (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 Category: Medical Code(s): J96.91 - Respiratory failure, unspecified with hypoxia (6) Respiratory failure requiring intubation Status: Acute Category: Medical Code(s): J96.90 - Respiratory failure, unspecified, unspecified whether with hypoxia or hypercapnia (7) Cachexia Status: Acute Category: Medical Code(s): R64 - Cachexia (8) Hypernatremia Status: Acute Category: Medical Code(s): E87.0 - Hyperosmolality and hypernatremia - Assessment and plan all Dx Assessment and Plan for all problems:: rounded with dr chandra all orders per dr chandra continue care pulm consult replace kcl
--- NOTE | 2021-05-07 10:32 | P.PN_ITS ---
Internal Medicine - PN: Subj *Date: 05/07/21 *Time: 10:32 Exam Vital signs and Labs for Last 24 Hours: Temp Pulse Resp BP Pulse Ox 97.6 F 66 16 144/52 H 100 05/07/21 08:00 05/07/21 08:00 05/07/21 09:55 05/07/21 08:00 05/07/21 09:55 Laboratory Results - last 24 hr 05/07/21 05:50: WBC 16.0 H D, RBC 3.79 L, Hgb 11.7 L, Hct 35.7 L, MCV 94.0, MCH 30.9, MCHC 32.9, RDW 15.7, Plt Count 151, MPV 10.6 H, Neut % (Auto) 92.9 H, Lymph % (Auto) 4.7 L, [place] % (Auto) 2.1, Eos % (Auto) 0.1, Baso % (Auto) 0.3, Neut # (Auto) 14.8 H, Lymph # (Auto) 0.7, [place] # (Auto) 0.3, Eos # (Auto) 0.0, Baso # (Auto) 0.1, Total Counted 100, Neutrophils % (Manual) 91 H, Lymphocytes % (Manual) 4 L, Monocytes % (Manual) 3, Blast Cells % 2.0, Nucleated RBCs 1, Platelet Estimate Normal, Hypochromasia 1+, Macrocytosis 1+ 05/07/21 05:50: Sodium 149 H, Potassium 3.1 L, Chloride 114 H, Carbon Dioxide 32 H, Anion Gap 6.1, BUN 28 H, Creatinine 0.40 L D, Estimated Creat Clear 36, Estimated GFR 155, Est GFR ( Amer) 187 D, Glucose 150 H D, Calcium 8.0 L , C-Reactive Protein 38.8 H 05/07/21 07:22: Specimen Source Left radial, O2 % 35, ABG pH 7.51 H, ABG pCO2 34.4 L, ABG pO2 38.9 L, ABG HCO3 26.7 H, ABG Total CO2 27.8 H, ABG O2 Saturation 79 L*, ABG Base Excess 3.7 H, Krystian Test Acceptable, ABG Lactate 1.8, Vent Rate 18, Tidal Volume 400, PEEP 5 I & O for Last 24 hours: Intake & Output 05/04/21 05/05/21 05/06/21 05/07/21 23:59 23:59 23:59 23:59 Intake Total 2229 / 2229 3250 / 3501 1908 / 1908 505 / 505 Output Total 1350 / 1600 1460 / 1605 1390 / 1390 310 / 310 Balance 879 / 629 1790 / 1896 518 / 518 195 / 195 Weight 51 kg 49.895 kg 47.9 kg 47.9 kg Microbiology Reports for the Last 24 Hours: Microbiology 05/06/21 14:00 Bronchial Washings - Right Middle Lobe Gram Stain - Final Assessment and Plan (1) Pneumonia due to COVID-19 virus Status: Acute Category: Medical Code(s): U07.1 - COVID-19; J12.82 - Pneumonia due to coronavirus disease 2019 (2) Hepatic infarction Status: Acute Category: Medical Code(s): K76.3 - Infarction of liver (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 Category: Medical Code(s): J96.91 - Respiratory failure, unspecified with hypoxia (6) Respiratory failure requiring intubation Status: Acute Category: Medical Code(s): J96.90 - Respiratory failure, unspecified, unspecified whether with hypoxia or hypercapnia (7) Cachexia Status: Acute Category: Medical Code(s): R64 - Cachexia (8) Hypernatremia Status: Acute Category: Medical Code(s): E87.0 - Hyperosmolality and hypernatremia The patient's infection will respond to the chosen ABx?: Yes Is the patient receiving the right drug, dose, and route?: Yes Could a more targeted ABx be ordered?: No
--- NOTE | 2021-05-07 10:53 | PC.NURSE ---
sedation weaned. Propofol gtt now @ 15mcg/kg/min and Fentanyl gtt @ 5mcg/hr.
--- NOTE | 2021-05-07 13:16 | PC.NURSE ---
RESP CARE NOTE: Pt placed in SBT trial per Dr Rivera v/o. Spont mode with 10/5 and 45% FIO2.
--- NOTE | 2021-05-07 13:25 | PC.NURSE ---
RESP CARE NOTE: Pt switched back to AC mode of ventilation per Dr Rivera v/o. [id number]
--- NOTE | 2021-05-07 14:53 | HMH.PULMPN ---
Internal Medicine - PN: Subj *Date: 05/07/21 *Time: 14:53 Interval history: No acute respite events overnight. Respiratory status and oxygen requirements continue to improve. Exam - Constitutional Constitutional:: Present: no acute distress, comfortable - HENMT Exam HENMT: Present: normocephalic - Eye Exam Eyes:: Present: normal appearance both eyes and related structures - Neck Exam Neck:: Present: normal visual inspection - Respiratory Exam Respiratory:: Present: respiratory distress, rales - Cardiovascular Exam Cardiac:: Present: S1, S2 - GI Exam GI:: Present: soft - Skin Exam Skin: Present: warm - Neurological Exam Neurological: Absent: alert, awake, normal cognition - Extremities Exam Extremities: Present: no cyanosis, no clubbing Assessment and Plan (1) Pneumonia due to COVID-19 virus Status: Acute Category: Medical Code(s): U07.1 - COVID-19; J12.82 - Pneumonia due to coronavirus disease 2018 (2) Hepatic infarction Status: Acute Category: Medical Code(s): K76.3 - Infarction of liver (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 Category: Medical Code(s): J96.91 - Respiratory failure, unspecified with hypoxia (6) Respiratory failure requiring intubation Status: Acute Category: Medical Code(s): J96.90 - Respiratory failure, unspecified, unspecified whether with hypoxia or hypercapnia (7) Cachexia Status: Acute Category: Medical Code(s): R64 - Cachexia (8) Hypernatremia Status: Acute Category: Medical Code(s): E87.0 - Hyperosmolality and hypernatremia - Assessment and plan all Dx Assessment and Plan for all problems:: #History of COVID-19 pneumonia: #Acute Hypoxic respiratory failure: #ILD: Current smoker greater than [id number] smoking history. History of rheumatoid arthritis, on methotrexate and hydroxychloroquine. yet to be vaccinated for COVID-19. Diagnosed with COVID-19 pneumonia around [facility], did not receive any treatment, managed at home with worsening respiratory GI symptoms eventually presented to the ER found to have duodenal perforation status post repair. Subsequently patient also found to be in hypoxic respiratory failure needing new oxygen requirements and pulmonary was called for further management. Patient chest X bilateral diffuse worsening infiltrates along with interstitial markings. No prior imaging available for review. CRP was significantly elevated at 207 on admission. Patient significantly supplementation eventually escalated by evaluating 100% FiO2 that significantly improved to 50% after diuresis. However this morning patient had an acute clinical deterioration where she became unresponsive with saturation maintained 85% dementia needing intubation and mechanical ventilatory support. She has been receiving Zosyn since admission. Her nasal MRSA PCR resulted negative. Lower lung lopez on CT abdomen showed diffuse GGO airspace disease with increased interstitial markings. The possibility of underlying interstitial lung disease cannot be completely ruled out, need to be followed with PFT & HRCT in the future. chest x-ray showed bilateral infiltrates along with hyperexpanded lungs. Plan: -Intubated and sedated. Continue wean sedation to facilitate SBT. Failed SBT this morning secondary to low lung volumes. Oxygen requirements continued to improve. Continue to remain on minimal vent settings. Failed SBT secondary to low lung volumes. We will continue to wean sedation and perform daily SBT's. Continue Zosyn. BAL no organisms seen so far. Blood gas this morning showed hypoxia with a PCO2 of 38 however patient
[2021-05-08] VITALS (27 sets, daily range): BP systolic 97–184; BP diastolic 38–104; PULSE 63–108; RESP 17–34; TEMP 36.3–37; O2SAT 96–100; BMI 16.9
[2021-05-08 06:15] LABS: Basophils # 0.1 K/mm3 (0-0.2); Basophils % 0.6 % (0.1-2.0); Eosinophils % 0.1 % (0.1-12.0); Hematocrit 34.3 % (37.0-47.0); Hemoglobin 11.3 g/dL (12.2-16.2); Lymphocytes # 0.6 K/mm3 (0.7-4.5); Lymphocytes % 2.5 % (10-50); Mean Corpuscular HGB Conc 32.9 g/dL (31.8-35.4); Mean Corpuscular Volume 94.2 fl (81-99); Mean Platelet Volume 11.3 fl (7.4-10.4); Monocytes # 0.5 K/mm3 (0.1-1.0); Monocytes % 2.1 % (1.7-9.3); Neutrophils # 20.5 K/mm3 (1.8-7.8); Neutrophils % 94.7 % (37.0-80.0); Platelet Count 164 K/mm3 (142-424); Red Blood Count 3.64 M/mm3 (4.20-5.40); Red Cell Distribution Width 15.9 % (11.5-17.5); White Blood Count 21.6 K/mm3 (4.8-10.8)
[2021-05-08 06:20] LABS: MANUAL DIFFERENTIAL MANUAL DIFFERENTIAL (MANUAL DIFF)
[2021-05-08 06:29] LABS: Chloride 113 mmol/L (98-107); Potassium 3.8 mmoL/L (3.5-5.1); Sodium 146 mmol/L (136-145)
--- NOTE | 2021-05-08 06:29 | PC.NURSE ---
pt lightly sedated on fent at 5, prop at 20. pt able to localize to pain, opens eyes spontaneously. bath given this shift, oral care q2h and prn, turned q2h. pt had a BM this shift.
[2021-05-08 06:32] LABS: Anion Gap 4.8 mEq/L (5-15); Blood Urea Nitrogen 27 mg/dl (7-17); Carbon Dioxide 32 mmol/L (22.0-30.0); Creatinine Clearance Estimated 36 mL/min (50-200); Estimated Glomerular Filt Rate 120 ml/min (>60); GFR (African American) 145 ML/MIN (>60); Glucose 148 mg/dl (74-100)
[2021-05-08 06:33] LABS: Magnesium 1.8 mg/dl (1.6-2.3)
--- NOTE | 2021-05-08 07:14 | P.PN_ITS ---
Subjective Narrative: Per nursing, the patient is continue to slowly improve from a respiratory standpoint. 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 Continue tube feeds as per the primary service and the critical care service. Remove remaining cassidy (5) Respiratory failure with hypoxia Status: Acute (6) Respiratory failure requiring intubation Status: Acute (7) Cachexia Status: Acute (8) Hypernatremia Status: Acute Exam Vital signs and Labs for Last 24 Hours: Temp Pulse Resp BP Pulse Ox 97.6 F 89 19 168/62 H 100 05/08/21 02:00 05/08/21 06:49 05/08/21 06:49 05/08/21 06:49 05/08/21 06:49 Laboratory Results - last 24 hr 05/07/21 05:50: WBC 16.0 H D, RBC 3.79 L, Hgb 11.7 L, Hct 35.7 L, MCV 94.0, MCH 30.9, MCHC 32.9, RDW 15.7, Plt Count 151, MPV 10.6 H, Neut % (Auto) 92.9 H, Lymph % (Auto) 4.7 L, [place] % (Auto) 2.1, Eos % (Auto) 0.1, Baso % (Auto) 0.3, Neut # (Auto) 14.8 H, Lymph # (Auto) 0.7, [place] # (Auto) 0.3, Eos # (Auto) 0.0, Baso # (Auto) 0.1, Total Counted 100, Neutrophils % (Manual) 91 H, Lymphocytes % (Manual) 4 L, Monocytes % (Manual) 3, Blast Cells % 2.0, Nucleated RBCs 1, Platelet Estimate Normal, Hypochromasia 1+, Macrocytosis 1+ 05/07/21 05:50: C-Reactive Protein 38.8 H 05/07/21 07:22: Specimen Source Left radial, O2 % 35, ABG pH 7.51 H, ABG pCO2 34.4 L, ABG pO2 38.9 L, ABG HCO3 26.7 H, ABG Total CO2 27.8 H, ABG O2 Saturation 79 L*, ABG Base Excess 3.7 H, Krystian Test Acceptable, ABG Lactate 1.8, Vent Rate 18, Tidal Volume 400, PEEP 5 05/08/21 05:55: WBC 21.6 H* D, RBC 3.64 L, Hgb 11.3 L, Hct 34.3 L, MCV 94.2, MCH 31.0, MCHC 32.9, RDW 15.9, Plt Count 164, MPV 11.3 H, Neut % (Auto) 94.7 H, Lymph % (Auto) 2.5 L, [place] % (Auto) 2.1, Eos % (Auto) 0.1, Baso % (Auto) 0.6, Neut # (Auto) 20.5 H, Lymph # (Auto) 0.6 L, [place] # (Auto) 0.5, Eos # (Auto) 0.0, Baso # (Auto) 0.1 05/08/21 05:55: Sodium 146 H, Potassium 3.8 D, Chloride 113 H, Carbon Dioxide 32 H, Anion Gap 4.8 L, BUN 27 H, Creatinine 0.50 L D, Estimated Creat Clear 36, Estimated GFR 120, Est GFR ( Amer) 145 D, Glucose 148 H, Calcium 8.0 L 05/08/21 05:55: Magnesium 1.8 I & O for Last 24 hours: Intake & Output 05/05/21 05/06/21 05/07/21 05/08/21 11:59 11:59 11:59 11:59 Intake Total 3809 / 3809 1331 / 1331 1845 / 1845 780 / 780 Output Total 1400 / 1400 705 / 705 1405 / 1470 604 / 604 Balance 2409 / 2409 626 / 626 440 / 375 176 / 176 Weight 110 lb 105 lb 9.623 oz 105 lb 9.623 oz 105 lb 13.15 oz Microbiology Reports for the Last 24 Hours: Microbiology 05/05/21 13:55 Blood Blood Culture - Preliminary NO GROWTH AFTER 48 HOURS 05/05/21 13:55 Blood Blood Culture - Preliminary NO GROWTH AFTER 48 HOURS - Constitutional Comments: She remains intubated - *Routine Respiratory Exam Present: patient mechanically ventilated - *Routine Abdominal Exam Comments: The patient's incision remained stable with no sign of infection (per nsg). One half of cassidy were removed yesterday (per nsg).
--- NOTE | 2021-05-08 08:10 | PC.WOUNDNOTE ---
Pt skin assessment of coccyx during am assessment
--- NOTE | 2021-05-08 08:15 | PC.NURSE ---
sedation turned off at 0815 in preparation of SBT
[2021-05-08 09:18] LABS: Hypochromasia 1+; Lymphocytes % 1 % (10-50); Macrocytosis 1+; Monocytes % 3 % (2-9); Neutrophils % 96 % (42-76); Platelet Estimate Normal; Total Cells Counted 100
--- NOTE | 2021-05-08 10:22 | HMH.PULMPN ---
Internal Medicine - PN: Subj *Date: 05/08/21 *Time: 14:47 Interval history: No acute respiratory vents overnight Exam - Constitutional Constitutional:: Present: no acute distress, comfortable - HENMT Exam HENMT: Present: normocephalic - Eye Exam Eyes:: Present: normal appearance both eyes and related structures - Neck Exam Neck:: Present: normal visual inspection - Respiratory Exam Respiratory:: Present: respiratory distress, rales - Cardiovascular Exam Cardiac:: Present: S1, S2 - GI Exam GI:: Present: soft - Skin Exam Skin: Present: warm, no rash - Neurological Exam Neurological: Absent: alert, awake, normal cognition - Extremities Exam Extremities: Present: no cyanosis, no clubbing, no edema Assessment and Plan (1) Pneumonia due to COVID-19 virus Status: Acute Category: Medical Code(s): U07.1 - COVID-19; J12.82 - Pneumonia due to coronavirus disease 2018 (2) Hepatic infarction Status: Acute Category: Medical Code(s): K76.3 - Infarction of liver (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 Category: Medical Code(s): J96.91 - Respiratory failure, unspecified with hypoxia (6) Respiratory failure requiring intubation Status: Acute Category: Medical Code(s): J96.90 - Respiratory failure, unspecified, unspecified whether with hypoxia or hypercapnia (7) Cachexia Status: Acute Category: Medical Code(s): R64 - Cachexia (8) Hypernatremia Status: Acute Category: Medical Code(s): E87.0 - Hyperosmolality and hypernatremia - Assessment and plan all Dx Assessment and Plan for all problems:: #History of COVID-19 pneumonia: #Acute Hypoxic respiratory failure: #ILD: Current smoker greater than [id number] smoking history. History of rheumatoid arthritis, on methotrexate and hydroxychloroquine. yet to be vaccinated for COVID-19. Diagnosed with COVID-19 pneumonia around [facility], did not receive any treatment, managed at home with worsening respiratory GI symptoms eventually presented to the ER found to have duodenal perforation status post repair. Subsequently patient also found to be in hypoxic respiratory failure needing new oxygen requirements and pulmonary was called for further management. Patient chest X bilateral diffuse worsening infiltrates along with interstitial markings. No prior imaging available for review. CRP was significantly elevated at 207 on admission. Patient significantly supplementation eventually escalated by evaluating 100% FiO2 that significantly improved to 50% after diuresis. However this morning patient had an acute clinical deterioration where she became unresponsive with saturation maintained 85% dementia needing intubation and mechanical ventilatory support. She has been receiving Zosyn since admission. Her nasal MRSA PCR resulted negative. Lower lung lopez on CT abdomen showed diffuse GGO airspace disease with increased interstitial markings. The possibility of underlying interstitial lung disease cannot be completely ruled out, need to be followed with PFT & HRCT in the future. chest x-ray showed bilateral infiltrates along with hyperexpanded lungs. Plan: -Intubated and sedated. Patient failed SBT secondary to tachypnea and low lung volumes. We will hold off on continuous sedations at this point of time and will give as needed's on as-needed basis Oxygen requirements continued to improve. Continue to remain on minimal vent settings. Failed SBT secondary to low lung volumes. Continue Zosyn. BAL no organisms seen so far. Nasal MRSA PCR negative. DuoNebs every 6 hours scheduled along with budesonide every 12 scheduled. Co
--- NOTE | 2021-05-08 10:24 | XR_ITS ---
PROCEDURE: XR CHEST PORTABLE CLINICAL HISTORY: Pneumonia COMPARISON: CR XR CHEST PORTABLE from 05/05/2021 CR XR CHEST PORTABLE from 05/06/2021 CR XR CHEST PORTABLE from 05/07/2021 FINDINGS: 10:44 a.m.. Endotracheal tube, right IJ CVL, and nasogastric tube all are in good position. Bilateral pneumonia once again noted and may be slightly improved on the left. There are small bilateral effusions. No acute bony abnormalities. IMPRESSION: Tubes and lines in good position. Bilateral pneumonia slightly improved on the left with bilateral effusions Dictated by: Krystian Spencer MD 05/08/2021 11:39 Krystian Spencer MD in OV 05/08/2021 11:39
--- NOTE | 2021-05-08 11:51 | HMH.ACPN2 ---
Internal Medicine - PN: Subj *Date: 05/08/21 *Time: 08:15 Interval history: Pt intubated,sedated Exam Vital signs and Labs for Last 24 Hours: Temp Pulse Resp BP Pulse Ox 97.6 F 89 19 168/62 H 100 05/08/21 02:00 05/08/21 06:49 05/08/21 06:49 05/08/21 06:49 05/08/21 06:49 Laboratory Results - last 24 hr 05/08/21 05:55: WBC 21.6 H* D, RBC 3.64 L, Hgb 11.3 L, Hct 34.3 L, MCV 94.2, MCH 31.0, MCHC 32.9, RDW 15.9, Plt Count 164, MPV 11.3 H, Neut % (Auto) 94.7 H, Lymph % (Auto) 2.5 L, [place] % (Auto) 2.1, Eos % (Auto) 0.1, Baso % (Auto) 0.6, Neut # (Auto) 20.5 H, Lymph # (Auto) 0.6 L, [place] # (Auto) 0.5, Eos # (Auto) 0.0, Baso # (Auto) 0.1, Total Counted 100, Neutrophils % (Manual) 96 H, Lymphocytes % (Manual) 1 L, Monocytes % (Manual) 3, Platelet Estimate Normal, Hypochromasia 1+, Macrocytosis 1+ 05/08/21 05:55: Sodium 146 H, Potassium 3.8 D, Chloride 113 H, Carbon Dioxide 32 H, Anion Gap 4.8 L, BUN 27 H, Creatinine 0.50 L D, Estimated Creat Clear 36, Estimated GFR 120, Est GFR ( Amer) 145 D, Glucose 148 H, Calcium 8.0 L 05/08/21 05:55: Magnesium 1.8 I & O for Last 24 hours: Intake & Output 05/05/21 05/06/21 05/07/21 05/08/21 11:59 11:59 11:59 11:59 Intake Total 3809 / 3809 1331 / 1331 1845 / 1845 780 / 780 Output Total 1400 / 1400 705 / 705 1405 / 1470 604 / 604 Balance 2409 / 2409 626 / 626 440 / 375 176 / 176 Weight 110 lb 105 lb 9.623 oz 105 lb 9.623 oz 105 lb 13.15 oz Microbiology Reports for the Last 24 Hours: Microbiology 05/05/21 13:55 Blood Blood Culture - Preliminary NO GROWTH AFTER 48 HOURS 05/05/21 13:55 Blood Blood Culture - Preliminary NO GROWTH AFTER 48 HOURS - Constitutional no acute distress - *Routine HEENT Exam Head: Present: normocephalic Eye: Present: PERRL ENT: Present: mucous membranes moist - *Routine Neck Exam Present: supple. Absent: lymphadenopathy - *Routine Respiratory Exam Present: patient mechanically ventilated - *Routine Cardiovascular Exam Present: RRR - *Routine Abdominal Exam Present: soft, normoactive bowel sounds. Absent: tenderness - *Routine Extremities Exam Absent: cyanosis, clubbing, edema - *Routine Skin Exam Present: warm. 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 Category: Medical Code(s): J96.91 - Respiratory failure, unspecified with hypoxia (6) Respiratory failure requiring intubation Status: Acute Category: Medical Code(s): J96.90 - Respiratory failure, unspecified, unspecified whether with hypoxia or hypercapnia (7) Cachexia Status: Acute Category: Medical Code(s): R64 - Cachexia (8) Hypernatremia Status: Acute Category: Medical Code(s): E87.0 - Hyperosmolality and hypernatremia - Assessment and plan all Dx Assessment and Plan for all problems:: rounded with dr ng all orders per dr ng continue all care
[2021-05-09] VITALS (30 sets, daily range): BP systolic 119–179; BP diastolic 38–92; PULSE 70–131; RESP 8–40; TEMP 36.6–37.3; O2SAT 99–100; BMI 16.6
[2021-05-09 04:54] LABS: Adenovirus F 40/41, stool Not Detected (NotDetected); Astrovirus Not Detected (NotDetected); Campylobacter Not Detected (NotDetected); Clostridium Difficile A/B, PCR Not Detected (NotDetected); Cryptosporidium Not Detected (NotDetected); Cyclospora Cayetanesis Not Detected (NotDetected); Entamoeba histolytica Not Detected (NotDetected); Enteroaggregative E coli Not Detected (NotDetected); Enteropathogenic E coli Not Detected (NotDetected); Enterotoxigenic E coli Not Detected (NotDetected); Giardia lamblia Not Detected (NotDetected); Norovirus Not Detected (NotDetected); Plesimonas Shigalloides, PCR Not Detected (NotDetected); Rotavirus A Not Detected (NotDetected); Salmonella, PCR Not Detected (NotDetected); Sapovirus Not Detected (NotDetected); Shiga-like toxin E coli Not Detected (NotDetected); Shigella Enterovasive E coli Not Detected (NotDetected); Vibrio Cholerae Not Detected (NotDetected); Vibrio, PCR Not Detected (NotDetected); Yersinia Entercolitica, PCR Not Detected (NotDetected)
--- NOTE | 2021-05-09 06:00 | XR_ITS ---
PROCEDURE INFORMATION: Exam: XR Chest Exam date and time: 05/09/2021 6:00 AM Age: 75 years old Clinical indication: Device placement; Other: Pneumonia, mechanical ventilation; Additional info: Pneumonia mechanical ventilation TECHNIQUE: Imaging protocol: XR of the chest. Views: 1 view. COMPARISON: CR XR CHEST PORTABLE 05/08/2021 10:44 AM FINDINGS: Tubes, catheters and devices: Endotracheal tube terminates approximately 6 cm above the sarai. NG tube passes into stomach. Right IJ central venous catheter terminates in the region of the mid SVC. Lungs: Similar appearance of bilateral interstitial and airspace opacities. Pleural spaces: Small bilateral pleural effusions. No pneumothorax. Heart/Mediastinum: Unremarkable. No cardiomegaly. Bones/joints: Unremarkable. IMPRESSION: 1. Similar appearance of multilobar pneumonia. 2. Support apparatus in stable positions.
[2021-05-09 06:27] LABS: Chloride 114 mmol/L (98-107)
[2021-05-09 06:28] LABS: Potassium 3.3 mmoL/L (3.5-5.1)
[2021-05-09 06:30] LABS: Blood Urea Nitrogen 35 mg/dl (7-17); Creatinine Clearance Estimated 35 mL/min (50-200); Estimated Glomerular Filt Rate 120 ml/min (>60); GFR (African American) 145 ML/MIN (>60)
[2021-05-09 06:31] LABS: Anion Gap 6.3 mEq/L (5-15); Calcium 7.6 mg/dl (8.4-10.2); Carbon Dioxide 33 mmol/L (22.0-30.0); Glucose 123 mg/dl (74-100)
[2021-05-09 06:37] LABS: Basophils % 0.1 % (0.1-2.0); Hematocrit 27.3 % (37.0-47.0); Hemoglobin 9.4 g/dL (12.2-16.2); Lymphocytes # 0.5 K/mm3 (0.7-4.5); Lymphocytes % 2.5 % (10-50); Mean Corpuscular HGB Conc 34.6 g/dL (31.8-35.4); Mean Corpuscular Hemoglobin 32.3 pg (27.0-31.2); Mean Corpuscular Volume 93.4 fl (81-99); Mean Platelet Volume 11.3 fl (7.4-10.4); Monocytes # 0.5 K/mm3 (0.1-1.0); Monocytes % 2.1 % (1.7-9.3); Neutrophils # 20.5 K/mm3 (1.8-7.8); Neutrophils % 95.3 % (37.0-80.0); Platelet Count 181 K/mm3 (142-424); Red Blood Count 2.92 M/mm3 (4.20-5.40); White Blood Count 21.6 K/mm3 (4.8-10.8)
[2021-05-09 06:43] LABS: MANUAL DIFFERENTIAL MANUAL DIFFERENTIAL (MANUAL DIFF)
--- NOTE | 2021-05-09 06:48 | PC.NURSE ---
no acute events overnight. pt has frequently alarmed for low and high pressures. pt able to follow commands and remains off sedation. cohen draining clear yellow urine. PT had two very large liquid dark green BMs this shift. oral care q2h, turned q2h. heels floated. pt given full bath and linens changed.
[2021-05-09 07:52] LABS: ABG Base Excess 1.5 mmol/L (-2.4-2.3); ABG HCO3 25.6 mmhg (22.0-26.0); ABG Oxygen Saturation 90 % (90-100); ABG PCO2 37.7 mmhg (35.0-45.0); ABG PH 7.45 mmol/L (7.35-7.45); ABG PO2 58.5 mmhg (80-100); ABG TCO2 26.7 mmhg (23-27)
--- NOTE | 2021-05-09 07:55 | PC.NURSE ---
received call from lab (Bar) reporting Na 150. Name and verified. Dr. Dominguez notified.
[2021-05-09 07:56] LABS: Allen's Test Acceptable; Oxygen 45 %; PEEP 5; Tidal Volume 380
[2021-05-09 07:56] LABS: Sodium 150 mmol/L (136-145)
[2021-05-09 07:57] LABS: Source Right Radial; Vent Rate 18
[2021-05-09 08:46] LABS: Eosinophils % 1 % (0-3); Lymphocytes % 1 % (10-50); Monocytes % 1 % (2-9); Neutrophils % 96 % (42-76); Total Cells Counted 100
[2021-05-09 08:47] LABS: Nucleated Red Blood Cells 1
[2021-05-09 08:48] LABS: Platelet Estimate Normal
[2021-05-09 08:49] LABS: Anisocytosis 2+
--- NOTE | 2021-05-09 08:56 | PC.NURSE ---
RESP CARE NOTE: Pt placed in SPONT mode of ventilation, with Pressure support of 10 cmH2O to maintain spontaneous Vt of 300-[address] Rivera t/o. 5/5 spontaneous ventilation mode was attempted, but patient could not maintain adequate Vt breaths. Her average Vt on 5/5cmH2O spntaneous mode was 150-175ml.
--- NOTE | 2021-05-09 09:06 | HMH.GSPN ---
Subjective Narrative: Patient doing better from respiratory standpoint. Weaning the ventilator. Started tube feeds this morning and patient tolerating. 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 Reordered Protonix (5) Respiratory failure with hypoxia Status: Acute (6) Respiratory failure requiring intubation Status: Acute (7) Cachexia Status: Acute (8) Hypernatremia Status: Acute Exam Vital signs and Labs for Last 24 Hours: Temp Pulse Resp BP Pulse Ox 98.5 F 96 H 25 H 177/85 H 99 05/09/21 08:00 05/09/21 08:00 05/09/21 08:00 05/09/21 08:00 05/09/21 08:00 Laboratory Results - last 24 hr 05/08/21 05:55: Total Counted 100, Neutrophils % (Manual) 96 H, Lymphocytes % (Manual) 1 L, Monocytes % (Manual) 3, Platelet Estimate Normal, Hypochromasia 1+, Macrocytosis 1+ 05/09/21 04:30: Stl Aeromonas (PCR) Not detected, Stl C. cayetanensis PCR Not detected, Stool Rotavirus (PCR) Not detected, Stl Adenov F 40/41 PCR Not detected, Stool Astrovirus (PCR) Not detected, Stool Campylobacter PCR Not detected, Stl C.difficile Tox PCR Not detected, Stool Cryptosporidium PCR Not detected, Stl E.coli Shiga Tox PCR Not detected, Stool E coli O157 PCR Not detected, Stl Enterotoxigenic E PCR Not detected, Stool EPEC (PCR) Not detected, Stool EAEC (PCR) Not detected, Stl E. histolytica PCR Not detected, Stool Giardia Lamblia PCR Not detected, Stool Salmonella PCR Not detected, Stool Sapovirus (PCR) Not detected, Stl P. shigelloides PCR Not detected, Stl Shigella/EIEC PCR Not detected, St Y.enterocolitica PCR Not detected, Stool Vibrio (PCR) Not detected, Stl Vibrio cholerae PCR Not detected, Stl Norovirus GI/GII PCR Not detected 05/09/21 05:56: WBC 21.6 H*, RBC 2.92 L, Hgb 9.4 L, Hct 27.3 L, MCV 93.4, MCH 32.3 H, MCHC 34.6, RDW 17.0, Plt Count 181, MPV 11.3 H, Neut % (Auto) 95.3 H, Lymph % (Auto) 2.5 L, [place] % (Auto) 2.1, Eos % (Auto) 0.0 L, Baso % (Auto) 0.1, Neut # (Auto) 20.5 H, Lymph # (Auto) 0.5 L, [place] # (Auto) 0.5, Eos # (Auto) 0.0, Baso # (Auto) 0.0, Total Counted 100, Neutrophils % (Manual) 96 H, Band Neutrophils % 1.0, Lymphocytes % (Manual) 1 L, Monocytes % (Manual) 1 L, Eosinophils % (Manual) 1, Nucleated RBCs 1, Platelet Estimate Normal, Anisocytosis 2+ 05/09/21 05:56: Sodium 150 H, Potassium 3.3 L, Chloride 114 H, Carbon Dioxide 33 H, Anion Gap 6.3, BUN 35 H D, Creatinine 0.50 L, Estimated Creat Clear 35, Estimated GFR 120, Est GFR ( Amer) 145, Glucose 123 H, Calcium 7.6 L 05/09/21 : Specimen Source Right radial, O2 % 45, ABG pH 7.45, ABG pCO2 37.7, ABG pO2 58.5 L, ABG HCO3 25.6, ABG Total CO2 26.7, ABG O2 Saturation 90, ABG Base Excess 1.5, Krystian Test Acceptable, Vent Rate 18, Tidal Volume 380, PEEP 5 I & O for Last 24 hours: Intake & Output 05/06/21 05/07/21 05/08/21 05/09/21 11:59 11:59 11:59 11:59 Intake Total 1331 / 1331 1845 / 1845 780 / 780 2231 / 2231 Output Total 705 / 705 1405 / 1470 604 / 604 2065 / 2065 Balance 626 / 626 440 / 375 176 / 176 166 / 166 Weight 105 lb 9.623 oz 105 lb 9.623 oz 105 lb 13.15 oz 103 lb 9.876 oz Microbiology Reports for the Last 24 Hours: Microbiology 05/06/21 14:00 Bronchial Washings - Right Middle Lobe Acid Fast Bacilli Smear - Final - *Routine Abdominal Exam Comments: Clean incision as per nursing
--- NOTE | 2021-05-09 09:15 | PC.NURSE ---
RESP CARE NOTE: ET tube advanced 2cm per xray report tube was 6 cm above the sarai. Now secured at 25 cm at the teeth.
--- NOTE | 2021-05-09 12:18 | HMH.ACPN2 ---
Internal Medicine - PN: Subj *Date: 05/09/21 *Time: 12:18 Interval history: doing better - labs reviewed - on vent Exam Vital signs and Labs for Last 24 Hours: Temp Pulse Resp BP Pulse Ox 98.5 F 89 25 H 164/70 H 100 05/09/21 08:00 05/09/21 11:31 05/09/21 10:00 05/09/21 10:00 05/09/21 10:00 Laboratory Results - last 24 hr 05/09/21 04:30: Stl Aeromonas (PCR) Not detected, Stl C. cayetanensis PCR Not detected, Stool Rotavirus (PCR) Not detected, Stl Adenov F 40/41 PCR Not detected, Stool Astrovirus (PCR) Not detected, Stool Campylobacter PCR Not detected, Stl C.difficile Tox PCR Not detected, Stool Cryptosporidium PCR Not detected, Stl E.coli Shiga Tox PCR Not detected, Stool E coli O157 PCR Not detected, Stl Enterotoxigenic E PCR Not detected, Stool EPEC (PCR) Not detected, Stool EAEC (PCR) Not detected, Stl E. histolytica PCR Not detected, Stool Giardia Lamblia PCR Not detected, Stool Salmonella PCR Not detected, Stool Sapovirus (PCR) Not detected, Stl P. shigelloides PCR Not detected, Stl Shigella/EIEC PCR Not detected, St Y.enterocolitica PCR Not detected, Stool Vibrio (PCR) Not detected, Stl Vibrio cholerae PCR Not detected, Stl Norovirus GI/GII PCR Not detected 05/09/21 05:56: WBC 21.6 H*, RBC 2.92 L, Hgb 9.4 L, Hct 27.3 L, MCV 93.4, MCH 32.3 H, MCHC 34.6, RDW 17.0, Plt Count 181, MPV 11.3 H, Neut % (Auto) 95.3 H, Lymph % (Auto) 2.5 L, [place] % (Auto) 2.1, Eos % (Auto) 0.0 L, Baso % (Auto) 0.1, Neut # (Auto) 20.5 H, Lymph # (Auto) 0.5 L, [place] # (Auto) 0.5, Eos # (Auto) 0.0, Baso # (Auto) 0.0, Total Counted 100, Neutrophils % (Manual) 96 H, Band Neutrophils % 1.0, Lymphocytes % (Manual) 1 L, Monocytes % (Manual) 1 L, Eosinophils % (Manual) 1, Nucleated RBCs 1, Platelet Estimate Normal, Anisocytosis 2+ 05/09/21 05:56: Sodium 150 H, Potassium 3.3 L, Chloride 114 H, Carbon Dioxide 33 H, Anion Gap 6.3, BUN 35 H D, Creatinine 0.50 L, Estimated Creat Clear 35, Estimated GFR 120, Est GFR ( Amer) 145, Glucose 123 H, Calcium 7.6 L 05/09/21 : Specimen Source Right radial, O2 % 45, ABG pH 7.45, ABG pCO2 37.7, ABG pO2 58.5 L, ABG HCO3 25.6, ABG Total CO2 26.7, ABG O2 Saturation 90, ABG Base Excess 1.5, Krystian Test Acceptable, Vent Rate 18, Tidal Volume 380, PEEP 5 I & O for Last 24 hours: Intake & Output 05/07/21 05/08/21 05/09/21 05/10/21 11:59 11:59 11:59 11:59 Intake Total 1845 / 1845 780 / 780 2231 / 2231 Output Total 1405 / 1470 604 / 604 2190 / 2190 Balance 440 / 375 176 / 176 41 / 41 Weight 105 lb 9.623 oz 105 lb 13.15 oz 103 lb 9.876 oz Microbiology Reports for the Last 24 Hours: Microbiology 05/06/21 14:00 Bronchial Washings - Right Middle Lobe - Final 05/06/21 14:00 Bronchial Washings - Right Middle Lobe Acid Fast Bacilli Smear - Final - Constitutional thin - *Routine HEENT Exam Head: Present: normocephalic Eye: Present: EOMI, PERRL ENT: Present: mucous membranes dry - *Routine Neck Exam Absent: JVD - *Routine Respiratory Exam Present: patient mechanically ventilated - *Routine Cardiovascular Exam Present: RRR - *Routine Abdominal Exam Present: soft - *Routine Extremities Exam Absent: edema - *Routine Skin Exam Present: dry - *Routine Neurological Exam Present: altered mental status - Routine Psychiatric Exam Present: unable to assess Assessment and Plan (1) Pneumonia due to COVID-19 virus Status: Acute Category: Medical Code(s): U07.1 - COVID-19; J12.82 - Pneumonia due to coronavirus disease 2019 (2) Hepatic infarction Status: Acute Category: Medical Code(s): K76.3 - Infarction of liver (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
--- NOTE | 2021-05-09 13:35 | PC.NURSE ---
tubefeed rate increased to 30mL/hr.
[2021-05-10] VITALS (31 sets, daily range): BP systolic 76–163; BP diastolic 26–72; PULSE 80–135; RESP 18–44; TEMP 36.4–36.7; O2SAT 95–100; BMI 18.8
[2021-05-10 05:54] LABS: Basophils # 0.1 K/mm3 (0-0.2); Basophils % 0.3 % (0.1-2.0); Monocytes # 0.9 K/mm3 (0.1-1.0)
--- NOTE | 2021-05-10 06:00 | XR_ITS ---
PROCEDURE INFORMATION: Exam: XR Chest Exam date and time: 05/10/2021 6:00 AM Age: 75 years old Clinical indication: Shortness of breath; Additional info: Pneumonia mechanical ventilation TECHNIQUE: Imaging protocol: XR of the chest. Views: 1 view. COMPARISON: CR XR CHEST PORTABLE 05/09/2021 5:50 AM FINDINGS: Tubes, catheters and devices: Endotracheal tube terminates approximately 4.8 cm above the sarai. NG tube passes into the stomach. Right IJ central venous catheter terminates in the region of proximal SVC. Lungs: Similar bilateral interstitial and airspace opacities. Pleural spaces: Small bilateral pleural effusions. No pneumothorax. Heart/Mediastinum: Unremarkable. No cardiomegaly. Bones/joints: Unremarkable. IMPRESSION: 1. Similar appearance of multilobar pneumonia. 2. Support apparatus are in stable positions as detailed above.
[2021-05-10 06:01] LABS: Chloride 118 mmol/L (98-107)
[2021-05-10 06:02] LABS: Hematocrit 25.9 % (37.0-47.0); Lymphocytes # 0.9 K/mm3 (0.7-4.5); Lymphocytes % 2.9 % (10-50); Mean Corpuscular HGB Conc 30.7 g/dL (31.8-35.4); Mean Corpuscular Hemoglobin 31.5 pg (27.0-31.2); Mean Corpuscular Volume 102.5 fl (81-99); Mean Platelet Volume 12.1 fl (7.4-10.4); Monocytes % 2.8 % (1.7-9.3); Neutrophils # 28.6 K/mm3 (1.8-7.8); Platelet Count 224 K/mm3 (142-424); Potassium 4.1 mmoL/L (3.5-5.1); Red Blood Count 2.52 M/mm3 (4.20-5.40); Red Cell Distribution Width 19.2 % (11.5-17.5); White Blood Count 30.5 K/mm3 (4.8-10.8)
[2021-05-10 06:03] LABS: Hemoglobin 7.9 g/dL (12.2-16.2); MANUAL DIFFERENTIAL MANUAL DIFFERENTIAL (MANUAL DIFF)
[2021-05-10 06:05] LABS: Anion Gap 9.1 mEq/L (5-15); Blood Urea Nitrogen 52 mg/dl (7-17); Calcium 7.2 mg/dl (8.4-10.2); Carbon Dioxide 28 mmol/L (22.0-30.0); Creatinine Clearance Estimated 39 mL/min (50-200); Estimated Glomerular Filt Rate 97 ml/min (>60); GFR (African American) 117 ML/MIN (>60)
[2021-05-10 06:07] LABS: Glucose 179 mg/dl (74-100); Sodium 151 mmol/L (136-145)
[2021-05-10 06:10] LABS: Lymphocytes % 5 % (10-50); Monocytes % 2 % (2-9); Neutrophils % 84 % (42-76); Nucleated Red Blood Cells 2; Total Cells Counted 100
[2021-05-10 06:11] LABS: Anisocytosis 2+; Hypochromasia 2+; Macrocytosis 2+; Platelet Estimate Normal
--- NOTE | 2021-05-10 06:45 | PC.NURSE ---
notified MD Samaniego configuration engineer of pt's critical sodium of 151, no new orders at this time
--- NOTE | 2021-05-10 06:50 | PC.NURSE ---
Placed Pt on Spontaneous Breathing Trial discussed with RN that this is the plan per Dr. Rivera. Will continue to monitor.
--- NOTE | 2021-05-10 08:30 | PC.NURSE ---
Called to bedside by RN Pt not tolerating Spontaneous Breathing Trial, HR 137 RR 40 TV 150. Placed Pt on AC, discussed with RN agrees with plan.
--- NOTE | 2021-05-10 08:58 | PC.NURSE ---
Addendum entered by Johana Story RN 05/10/21 16:14: note should say Dr. Mojica, not Dr. Vega Original Note: per Dr. Vega who is rounding: HOLD tubefeeds until he orders it to be restarted. NG tube has been clamped at this time.
--- NOTE | 2021-05-10 08:59 | P.PN_ITS ---
Subjective Narrative: Patient remains on ventilator. Not following commands. Thick secretions. 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 Uncertain etiology. Plan to hold tube feeds for now. Exam Vital signs and Labs for Last 24 Hours: Temp Pulse Resp BP Pulse Ox 97.7 F 124 H 44 H 143/47 H 100 05/10/21 08:00 05/10/21 08:00 05/10/21 08:00 05/10/21 08:00 05/10/21 08:00 Laboratory Results - last 24 hr 05/10/21 05:30: WBC 30.5 H* D, RBC 2.52 L, Hgb 7.9 L D, Hct 25.9 L, MCV 102.5 H, MCH 31.5 H, MCHC 30.7 L, RDW 19.2 H, Plt Count 224, MPV 12.1 H, Neut % (Auto) 94.0 H, Lymph % (Auto) 2.9 L, [place] % (Auto) 2.8, Eos % (Auto) 0.0 L, Baso % (Auto) 0.3, Neut # (Auto) 28.6 H, Lymph # (Auto) 0.9, [place] # (Auto) 0.9, Eos # (Auto) 0.0, Baso # (Auto) 0.1, Total Counted 100, Neutrophils % (Manual) 84 H, Band Neutrophils % 9.0 H, Lymphocytes % (Manual) 5 L, Monocytes % (Manual) 2, Nucleated RBCs 2, Platelet Estimate Normal, Hypochromasia 2+, Anisocytosis 2+, Macrocytosis 2+ 05/10/21 05:30: Sodium 151 H*, Potassium 4.1 D, Chloride 118 H, Carbon Dioxide 28, Anion Gap 9.1, BUN 52 H D, Creatinine 0.60, Estimated Creat Clear 39, Estimated GFR 97, Est GFR ( Amer) 117, Glucose 179 H D, Calcium 7.2 L I & O for Last 24 hours: Intake & Output 05/07/21 05/08/21 05/09/21 05/10/21 11:59 11:59 11:59 11:59 Intake Total 1845 / 1845 780 / 780 2231 / 2231 3149 / 3149 Output Total 1405 / 1470 604 / 604 2240 / 2280 871 / 871 Balance 440 / 375 176 / 176 -9 / -49 2278 / 2278 Weight 105 lb 9.623 oz 105 lb 13.15 oz 103 lb 9.876 oz 116 lb 13.52 oz Microbiology Reports for the Last 24 Hours: Microbiology 05/05/21 09:45 Sputum - Endotracheal Tube Aspirate Gram Stain - Final 05/05/21 09:45 Sputum - Endotracheal Tube Aspirate Sputum Culture - Final NO GROWTH AFTER 48 HOURS 05/06/21 14:00 Bronchial Washings - Right Middle Lobe - Final 05/06/21 14:00 Bronchial Washings - Right Middle Lobe Acid Fast Bacilli Smear - Final - *Routine Abdominal Exam Present: soft. Absent: tenderness, distended Comments: Incision clean and intact.
[2021-05-10 09:47] LABS: ABG Base Excess -6.3 mmol/L (-2.4-2.3); ABG HCO3 19.9 mmhg (22.0-26.0); ABG Oxygen Saturation 91 % (90-100); ABG PCO2 40.4 mmhg (35.0-45.0); ABG PH 7.31 mmol/L (7.35-7.45); ABG PO2 73.7 mmhg (80-100); ABG TCO2 21.2 mmhg (23-27)
[2021-05-10 09:54] LABS: Allen's Test Patient Unable; Oxygen 45 %; PEEP 5; Source Right Brachial; Tidal Volume 380; Vent Rate 16
--- NOTE | 2021-05-10 10:56 | PC.NURSE ---
BRISEYDA to [facility] per Dr. Mojica
--- NOTE | 2021-05-10 11:27 | PC.NURSE ---
pt not following commands today like she was yesterday. Does not open eyes to voice. Dr. Rivera and Dr. Mojica are aware. Sedation has been OFF > 24hrs.
--- NOTE | 2021-05-10 12:46 | HMH.ACPN2 ---
Internal Medicine - PN: Subj *Date: 05/10/21 *Time: 12:46 Interval history: Patient is dropping her systolic pressure, having copious amounts of return from the NG tube copious amounts of liquid dark brown diarrhea. Previous Hemoccult has been positive, we are awaiting on a second Hemoccult. Her hemoglobin is 7.9 today. She remains on a ventilator. Change in her antibiotic coverage to include meropenem vancomycin and micafungin. Her vertical midline incision is healing well but there is palpable pulsatility in the midline she has a very thin habitus. We are initiating a fluid bolus and attempt to raise the pressure before starting tropes. The family is coming in in a short while to discuss status. She is currently a full code. She is unresponsive on the vent. Repeat H&H is being drawn stat, she is also being typed and screened. Her prognosis at this point is guarded Exam Vital signs and Labs for Last 24 Hours: Temp Pulse Resp BP Pulse Ox 97.7 F 106 H 24 91/41 L 100 05/10/21 12:00 05/10/21 12:00 05/10/21 12:00 05/10/21 12:00 05/10/21 12:00 Laboratory Results - last 24 hr 05/10/21 05:30: WBC 30.5 H* D, RBC 2.52 L, Hgb 7.9 L D, Hct 25.9 L, MCV 102.5 H, MCH 31.5 H, MCHC 30.7 L, RDW 19.2 H, Plt Count 224, MPV 12.1 H, Neut % (Auto) 94.0 H, Lymph % (Auto) 2.9 L, [place] % (Auto) 2.8, Eos % (Auto) 0.0 L, Baso % (Auto) 0.3, Neut # (Auto) 28.6 H, Lymph # (Auto) 0.9, [place] # (Auto) 0.9, Eos # (Auto) 0.0, Baso # (Auto) 0.1, Total Counted 100, Neutrophils % (Manual) 84 H, Band Neutrophils % 9.0 H, Lymphocytes % (Manual) 5 L, Monocytes % (Manual) 2, Nucleated RBCs 2, Platelet Estimate Normal, Hypochromasia 2+, Anisocytosis 2+, Macrocytosis 2+ 05/10/21 05:30: Sodium 151 H*, Potassium 4.1 D, Chloride 118 H, Carbon Dioxide 28, Anion Gap 9.1, BUN 52 H D, Creatinine 0.60, Estimated Creat Clear 39, Estimated GFR 97, Est GFR ( Amer) 117, Glucose 179 H D, Calcium 7.2 L 05/10/21 06:07: Specimen Source Right brachial, O2 % 45, ABG pH 7.31 L, ABG pCO2 40.4, ABG pO2 73.7 L, ABG HCO3 19.9 L, ABG Total CO2 21.2 L, ABG O2 Saturation 91, ABG Base Excess -6.3 L, Krystian Test Patient unable, Vent Rate 16, Tidal Volume 380, PEEP 5 I & O for Last 24 hours: Intake & Output 05/07/21 05/08/21 05/09/21 05/10/21 23:59 23:59 23:59 23:59 Intake Total 1210 / 1210 75 / 75 4551 / 4551 949 / 949 Output Total 674 / 709 395 / 395 2516 / 2516 455 / 455 Balance 536 / 501 -320 / -320 2035 / 203 494 / 494 Weight 105 lb 9.623 oz 105 lb 13.15 oz 103 lb 9.876 oz 116 lb 13.52 oz Microbiology Reports for the Last 24 Hours: Microbiology 05/05/21 09:45 Sputum - Endotracheal Tube Aspirate Gram Stain - Final 05/05/21 09:45 Sputum - Endotracheal Tube Aspirate Sputum Culture - Final NO GROWTH AFTER 48 HOURS 05/06/21 14:00 Bronchial Washings - Right Middle Lobe - Final 05/06/21 14:00 Bronchial Washings - Right Middle Lobe Acid Fast Bacilli Smear - Final - Constitutional obtunded - *Routine HEENT Exam Head: Present: atraumatic - *Routine Neck Exam Present: supple. Absent: lymphadenopathy - *Routine Respiratory Exam Present: accessory muscle use, patient mechanically ventilated - *Routine Cardiovascular Exam Present: tachycardia - *Routine Abdominal Exam Present: surgical scars, other - *Routine Extremities Exam Absent: cyanosis - *Routine Skin Exam Absent: jaundice - *Routine Neurological Exam Present: altered mental status. 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
--- NOTE | 2021-05-10 12:51 | PC.NURSE ---
pt has had 450mL green/black contents from NG in suction canister in last 1hr. Just had large green/black liquid BM. BM contents suctioned and aprox 400mL in canister. Dr. Sanchez rounding and has been updated. He ordered a STAT CBC and STAT type and screen as well as a repeat stool blood occult. Dr. Sanchez also ordered a Levophed gtt (keep SBP>90) and a 1L 1/2NS bolus. During Dr. Sanchez rounding, pt had a 2nd large green/black liquid BM. Family has been updated. POC and code status reviewed. Family to call back @ 2/3pm with decision on code status. Metoprolol and Lovenox are on HOLD at this time.
[2021-05-10 12:58] LABS: Basophils # 0.4 K/mm3 (0-0.2); Basophils % 0.9 % (0.1-2.0); Hematocrit 23.4 % (37.0-47.0); Hemoglobin 7.3 g/dL (12.2-16.2); Lymphocytes # 1.9 K/mm3 (0.7-4.5); Lymphocytes % 4.5 % (10-50); Mean Corpuscular HGB Conc 31.3 g/dL (31.8-35.4); Mean Corpuscular Hemoglobin 31.8 pg (27.0-31.2); Mean Corpuscular Volume 101.7 fl (81-99); Mean Platelet Volume 12.6 fl (7.4-10.4); Monocytes # 1.3 K/mm3 (0.1-1.0); Monocytes % 3.2 % (1.7-9.3); Neutrophils # 39.2 K/mm3 (1.8-7.8); Neutrophils % 92.3 % (37.0-80.0); Platelet Count 202 K/mm3 (142-424); Red Cell Distribution Width 19.5 % (11.5-17.5)
[2021-05-10 13:11] LABS: White Blood Count 42.5 K/mm3 (4.8-10.8)
--- NOTE | 2021-05-10 13:11 | PC.NURSE ---
Addendum entered by Saniya Wagner RN 05/10/21 13:12: wbc count 42.5 Original Note: critical lab value called from lab at this time. WBC 42.9. name and repeated and verified with result. then reported to Primary SEEMA Story RN
--- NOTE | 2021-05-10 13:14 | PC.NURSE ---
Dr. Sanchez still on med surg floor and has been updated on H/H results.
[2021-05-10 13:25] LABS: Ammonia 31 umol/L (9-30)
[2021-05-10 13:28] LABS: Occult Blood,Stool Positive (Negative)
--- NOTE | 2021-05-10 13:33 | PC.NURSE ---
POA (Fiorella Mauricio) called and updated on status. Fiorella and spouse (Jose) state that they wish for pt to be a DNR and that blood transfusion not be started. Verified wishes with Anastasiya Wagner RN (data warehouse specialist). Updated Dr. Sanchez and Dr. Mojica. Family wish to visit pt at this time. Anastasiya Wagner RN gave permission for family to visit. Family reports that they will arrive to [facility] in next [address] Sanchez: do not start Levophed gtt, start and continue Protonix gtt, continue 1/2NS fluid bolus. All orders read back and confirmed. DNR order entered on his behalf. Pharmacist (Mary Ann Irvin) updated.
--- NOTE | 2021-05-10 14:00 | PC.NURSE ---
family (Fiorella and Jose) are at the bedside. They have been updated on POC.
--- NOTE | 2021-05-10 15:00 | PC.NURSE ---
family wish for RN to speak with them in the waiting area. Dr. Sanchez and I update family on POC.
--- NOTE | 2021-05-10 15:38 | PC.NURSE ---
per Anastasiya Wagner RN: family states that they cannot see pt in a worsening condition and that they will not be back to the bedside. They wish to continue the care that she is currently receiving and to let nature take its course. Family is not interested in withdrawal of care. Pt to remain intubated and on the vent. Will not transfuse PRBCs, will not start pressors for hypotension, and will remain a DNR.
[2021-05-11] VITALS (7 sets, daily range): BP systolic 68–84; BP diastolic 22–39; PULSE 0–120; RESP 41–53; TEMP 37.2; O2SAT 100
--- NOTE | 2021-05-11 04:59 | P.DN_ITS ---
Pronouncement Note - Date and Time of Date of : 05/11/21 Time of : 04:54 - Additional Data Confirmation of : no pulse, no respirations, pupils fixed and dilated Family: contacted Attending/PCP notified?: Yes Attending physician: Oswaldo Sanchez MD Was code activated?: No Autopsy requested?: No lightout examiner notified?: No Organ bank notified?: Yes Advance directives: Yes
--- NOTE | 2021-05-11 05:24 | HMH.DCSUM ---
General - General Admission date:: 04/30/21 Discharge date: 05/11/21 HPI HPI: this patient presented to the ed with - reports continued vomiting and diarrhea from her previous visit on 04/24. She says she now has some midline abdominal pain. She also reports soa - pt was found to hav FINDINGS: The cardiomediastinal silhouette and pulmonary vascularity are within normal limits. There is bilateral pneumonia in the right upper lobe, right lower lobe, and left lower lobe. There is biapical pleural thickening. There is a nodular density in the left apex at 10 mm. This could be due to scarring. Follow-up may confirm stability. Lucency in the left apex which could be related underlying cavitation or emphysematous change. No acute bony abnormalities. IMPRESSION: Bilateral pneumonia. Biapical scarring with nodular opacity in the left apex which may also be due to scarring versus pulmonary nodule. Lucencies are noted in the left apex and may be due to emphysematous changes/blebs versus cavitation. OWER THORAX: There are COPD changes of the lung with prominent interstitial thickening along with some consolidation in the lower lobes consistent with bilateral lower lobe pneumonia. Covid19 pneumonia is a consideration. No effusions. ABDOMEN & PELVIS: There is decreased density of the right lobe of the liver compared to the left side. This is fairly homogeneous. The spleen, adrenal glands, pancreas, and kidneys have an unremarkable appearance other than a 1.6 cm right renal cyst. No intestinal obstruction apparent. There are some scattered foci free air noted in the anterior aspect of the abdomen. There are scattered foci hyperdensity within the bowel and could represent residual contrast from a recent barium study or ingestion of bismuth containing medication. The appendix is not clearly delineated. 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 Superior mesenteric artery is nonvisualized. There is a prominent inferior mesenteric artery with prominent collateral vessels an arc of [place]olan. 1. Pneumoperitoneum. Ruptured viscus considered. 2. Bilateral lower lobe pneumonia consistent with Covid19 pneumonia. 3. Well-demarcated decreased attenuation involving the right lobe of the liver. Infarction is a consideration. Unusual pattern fatty infiltration would be included in the differential diagnosis. 4. 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 There is also occlusion of the superior mesenteric artery which is not identified. There is prominent collateral vessels suggesting at the occlusion may be chronic with enlarged arc of [place] 5. There is thickening of the ascending colon. Colonic mass is a consideration versus underlying inflammatory change. pt was seen by surg- This is a 75-year-old female with a recent diagnosis of Covid pneumonia who presents the emergency department with increasing nausea, vomiting, and diarrhea. She had a previous emergency department visit with similar symptoms on April 24. Evaluation included a CT scan which showed a small amount of pneumoperitoneum of undetermined etiology. No changes consistent with perforated duodenal ulcer or diverticulitis were noted. Bilateral pneumonia also confirmed radiographically. Unfortunately a well-demarcated decreased attenuation involving the right lobe of the liver was also noted and this was felt to be possibly consistent with infarction. 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 Some thickening of the ascending colon consistent with inflammatory change versus mass was also noted. The surgical service was consulted secondary to note of a small amount of pneumoperitoneum. Due t
--- NOTE | 2021-05-11 05:26 | PC.NURSE ---
pt at 0454 05/11/2021, MD Dominguez pronounced at bedside notified fish house worker Nirali Huggins of pt's passing notified next of kin and ALICJA Mauricio of pt's passing and RN instructed to [facility] [place], [place], no other family needed to be notified by RN per Fiorella, informed Fiorella would turn over pt's personal belongings to home notified [facility], pt ruled out for [facility] by Will Sheron notified [facility], spoke with Vaishali and a retention representative will call RN back with ETA of arrival
--- NOTE | 2021-05-11 05:30 | PC.NURSE ---
paged MD mandujano for [employer] to notify primary team of pt's passing, will await a call back
--- NOTE | 2021-05-11 05:34 | PC.NURSE ---
spoke with product support sales representative with [employer], will arrive approximately 30-45 minutes RN will provide post mortem care and prepare for home supervisor opening and picking
--- NOTE | 2021-05-11 06:13 | PC.NURSE ---
Did not get a return call from delbert PRIETO paged; notified MD Sanchez/primary MD via text to cell phone that pt
== END 2021-05-11 07:37 | disposition expired | DRG 329 ==
LOC: ER 15:49 → 2ND 16:19
PROVIDERS: Emergency Medicine; Internal Medicine Pulmonary Disease; Nurse Practitioner Family; Surgery; Admitting Provider Family Medicine; Emergency Provider Emergency Medicine; PCP Nurse Practitioner Family; Visit Provider Family Medicine
PROC: 0DU907Z Supplement Duodenum with Autologous Tissue Substitute, Open Approach (ICD-10-PCS; CPT 49000; principal; 2021-04-30 18:00)
PROC: 5A1955Z Respiratory Ventilation, Greater than 96 Consecutive Hours (ICD-10-PCS; principal; 2021-05-06 13:30)
DX: K26.1 Acute duodenal ulcer with perforation (principal); U07.1 COVID-19; J12.82 Pneumonia due to coronavirus disease 2019; J96.01 Acute respiratory failure with hypoxia; K76.3 Infarction of liver; K55.069 Acute infarction of intestine, part and extent unspecified; E43 Unspecified severe protein-calorie malnutrition; E87.0 Hyperosmolality and hypernatremia; J84.9 Interstitial pulmonary disease, unspecified; Z68.1 Body mass index [BMI] 19.9 or less, adult; J44.0 Chronic obstructive pulmonary disease with (acute) lower respiratory infection; K66.8 Other specified disorders of peritoneum; F17.210 Nicotine dependence, cigarettes, uncomplicated; M06.9 Rheumatoid arthritis, unspecified; E87.6 Hypokalemia; D64.9 Anemia, unspecified
CPT/HCPCS: 43840; 36556; 31500; 94002; 36415; 71045; 71046; 74176; 74177; 74240; 80048; 80053; 80076; 81001; 82140; 82272; 82803; 83605; 83690; 83735; 83880; 84145; 84484; 85007; 85025; 85610; 85651; 86140; 86850; 87040; 87070; 87081; 87102; 87116; 87186; 87205; 87206; 87506; 87507; 88112; 88312; 89051; 93005; 94003; 94640; 94660; 94761; 96365; 96367; 96375; 97110; 97163; 97530; 99152; 99284; C1751; C9803; G0328; J0330; J1956; J2185; J2405; J2543; J2704; J2710; J3370; Q9967; U0003; U0005